=== PATIENT | male | born 1960 | race Caucasian/White ===

== ENCOUNTER 2018-05-25 10:09 | Emergency (ER) | payer BC, MEDICARE ==
[2018-05-25 10:41] VITALS: TEMP 97.6
[2018-05-25] MEDS ORDERED: SODIUM CHLORIDE 0.9% 500 ML 500 ML IV STA (11:10)
--- NOTE | 2018-05-25 11:18 | ED ---
SOB HPI - General Chief Complaint: Shortness of Breath Stated Complaint: SOB Time Seen by Provider: 05/25/18 10:45 Source: patient, family, RN notes reviewed Mode of arrival: ambulatory Limitations: no limitations - History of Present Illness Initial Comments: 58-year-old male presents emergency Department chief complaint cough and cold like symptoms. Patient states he has been sick last few days progressively worsening. Patient states he feels short of breath. He does have underlying COPD and which she did this morning which has helped. Patient reports subjective fever and body aches. Patient denies any chest pain or chest pressure. Denies any nausea vomiting diarrhea constipation. No sick contacts he has been taking [id number] Mucinex. - Related Data Home Medications Medication Instructions Recorded Confirmed ALPRAZolam [Xanax] 0.25 mg PO TID PRN 05/25/18 05/25/18 Albuterol Nebulized [Ventolin 2.5 mg INHALATION RT-Q4H PRN 05/25/18 05/25/18 Nebulized] Albuterol Sulfate [Proair Hfa] 1 - 2 puff INHALATION RT-Q6H PRN 05/25/18 Ascorbic Acid [Vitamin C] 1,000 mg PO DAILY PRN 05/25/18 05/25/18 Cyclobenzaprine [Flexeril] 5 mg PO TID PRN 05/25/18 05/25/18 Fluticasone/Vilanterol [Breo 1 puff INHALATION RT-DAILY 05/25/18 05/25/18 Ellipta 100-25 Mcg Inhaler] HYDROcodone/APAP 7.5-325MG [[place] 1 tab PO Q6HR PRN 05/25/18 05/25/18 7.5-325] Ibuprofen [Motrin] 800 mg PO Q6H PRN 05/25/18 05/25/18 Mometasone Furoate [Asmanex] 1 puff INHALATION RT-DAILY 05/25/18 05/25/18 guaiFENesin [Mucinex] 600 mg PO Q12H PRN 05/25/18 05/25/18 Previous Rx's Medication Instructions Recorded Azithromycin [Zithromax Z-pack] 0 mg PO DIRECTED #1 pack 05/25/18 predniSONE 50 mg PO DAILY #5 tab 05/25/18 Allergies Allergy/AdvReac Type Severity Reaction Status Date / Time meperidine HCl [From Demerol] Allergy Severe Unknown Verified 05/25/18 11:29 Review of Systems ROS Statement: Those systems with pertinent positive or pertinent negative responses have been documented in the HPI. ROS Other: All systems not noted in ROS Statement are negative. Past Medical History Past Medical History: COPD, Pneumonia Additional Past Medical History / Comment(s): Hx emphysema, pneumonia with last episode being 2013, back pain and shingells 2013. Pt states last 4 days he has had productive cough with white/[place] expectorant/fever/chills/sweats /SOB. Was seen on Tuesday12/07/[address] Rasmussen[employer]. Placed on amoxicillin and medrol dose godwin. Was also given cough syrup but his pharmacy did not have that. 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 States he had this surgery here at [facility] but does not remember surgeons name. Past Anesthesia/Blood Transfusion Reactions: No Reported Reaction Past Psychological History: No Psychological Hx Reported Smoking Status: Current every day smoker Past Alcohol Use History: None Reported Past Drug Use History: None Reported - Past Family History Father Family Medical History: Cancer Additional Family Medical History / Comment(s): Father at age 54 from cancer. Had lung CA, liver CA and brain CA. Mother Family Medical History: COPD, Pneumonia Additional Family Medical History / Comment(s): Mother at age 70 of copd complicated by pneumonia. General Exam Limitations: no limitations General appearance: alert, in no apparent distress Head exam: Present: atraumatic, normocephalic, normal inspection Eye exam: Present: normal appearance, PERRL, EOMI. Absent: scleral icterus, conjunctival injection, periorbital swelling ENT exam: Present: normal exam, normal oropharynx, mucous membranes moist Neck exam: Present: normal inspection, full ROM. Absent: tenderness, meningismus, lymphadenopathy Respiratory exam: Present: normal lung sounds bilaterally. Absent: respiratory distress, wheezes, rales, rhonchi, stridor Cardiovascular Exam: Present: regular rate, normal rhythm, normal heart sounds. Absent: systolic murmur, diastolic murmur, rubs, gallop, clicks GI/Abdominal exam: Present: soft, normal bowel sounds. Absent: distended, tenderness, guarding, rebound, rigid Course Vital Signs 05/25/18 05/25/18 10:40 12:30 Temperature 97.6 F Pulse Rate 99 74 Respiratory 24 16 Rate Blood Pressure 131/45 124/89 O2 Sat by Pulse 95 100 Oximetry Medical Decision Making - Medical Decision Making 58-year-old male presents emergency department for cough congestion shortness breath. Patient had complete workup including lab CT and x-ray. Patient has mild COPD exacerbation with upper respiratory infection will be treated with antibiotics and steroids patient will follow for neurologist return for any worsening symptoms. - Lab Data Result diagrams: 05/25/18 11:22 05/25/18 11:22 Lab Results 05/25/18 05/25/18 05/25/18 Range/Units 11:22 11:22 11:22 WBC 5.8 (3.8-10.6) k/uL RBC 4.27 L (4.30-5.90) m/uL Hgb 13.0 (13.0-17.5) gm/dL Hct 38.5 L (39.0-53.0) % MCV 90.2 (80.0-100.0) fL MCH 30.5 (25.0-35.0) pg MCHC 33.9 (31.0-37.0) g/dL RDW 13.5 (11.5-15.5) % Plt Count 200 (150-450) k/uL Neutrophils % 71 % Lymphocytes % 16 % Monocytes % 8 % Eosinophils % 4 % Basophils % 1 % Neutrophils # 4.1 (1.3-7.7) k/uL Lymphocytes # 0.9 L (1.0-4.8) k/uL Monocytes # 0.5 (0-1.0) k/uL Eosinophils # 0.2 (0-0.7) k/uL Basophils # 0.0 (0-0.2) k/uL PT 10.3 (9.0-12.0) sec INR 1.0 (<1.2) APTT 23.7 (22.0-30.0) sec Sodium 141 (137-145) mmol/L Potassium 3.3 L (3.5-5.1) mmol/L Chloride 109 H (98-107) mmol/L Carbon Dioxide 22 (22-30) mmol/L Anion Gap 10 mmol/L BUN 13 (9-20) mg/dL Creatinine 0.66 (0.66-1.25) mg/dL Est GFR (CKD-EPI)AfAm >90 (>60 ml/min/1.73 sqM) Est GFR (CKD-EPI)NonAf >90 (>60 ml/min/1.73 sqM) Glucose 92 (74-99) mg/dL Calcium 8.9 (8.4-10.2) mg/dL Magnesium 1.5 L (1.6-2.3) mg/dL Total Bilirubin 0.7 (0.2-1.3) mg/dL AST 22 (17-59) U/L ALT 34 (21-72) U/L Alkaline Phosphatase 56 (38-126) U/L Troponin I (0.000-0.034) ng/mL Total Protein 6.6 (6.3-8.2) g/dL Albumin 4.0 (3.5-5.0) g/dL Influenza Type A RNA (Not Detectd) Influenza Type B (PCR) (Not Detectd) 05/25/18 05/25/18 Range/Units 11:22 11:22 WBC (3.8-10.6) k/uL RBC (4.30-5.90) m/uL Hgb (13.0-17.5) gm/dL Hct (39.0-53.0) % MCV (80.0-100.0) fL MCH (25.0-35.0) pg MCHC (31.0-37.0) g/dL RDW (11.5-15.5) % Plt Count (150-450) k/uL Neutrophils % % Lymphocytes % % Monocytes % % Eosinophils % % Basophils % % Neutrophils # (1.3-7.7) k/uL Lymphocytes # (1.0-4.8) k/uL Monocytes # (0-1.0) k/uL Eosinophils # (0-0.7) k/uL Basophils # (0-0.2) k/uL PT (9.0-12.0) sec INR (<1.2) APTT (22.0-30.0) sec Sodium (137-145) mmol/L Potassium (3.5-5.1) mmol/L Chloride (98-107) mmol/L Carbon Dioxide (22-30) mmol/L Anion Gap mmol/L BUN (9-20) mg/dL Creatinine (0.66-1.25) mg/dL Est GFR (CKD-EPI)AfAm (>60 ml/min/1.73 sqM) Est GFR (CKD-EPI)NonAf (>60 ml/min/1.73 sqM) Glucose (74-99) mg/dL Calcium (8.4-10.2) mg/dL Magnesium (1.6-2.3) mg/dL Total Bilirubin (0.2-1.3) mg/dL AST (17-59) U/L ALT (21-72) U/L Alkaline Phosphatase (38-126) U/L Troponin I <0.012 (0.000-0.034) ng/mL Total Protein (6.3-8.2) g/dL Albumin (3.5-5.0) g/dL Influenza Type A RNA Not Detected (Not Detectd) Influenza Type B (PCR) Not Detected (Not Detectd) - EKG Data EKG Comments: EKG performed at 11:42 normal sinus rhythm with a rate of 66 WA 140 QRS 80 QT/ QTC 400/419 Disposition Clinical Impression: COPD exacerbation, URI (upper respiratory infection) Disposition: HOME SELF-CARE Condition: Stable Instructions (If sedation given, give patient instructions): Acute Bronchitis ( ED) Additional Instructions: Please return to the Emergency Department if symptoms worsen or any other concerns. Prescriptions: Azithromycin [Zithromax Z-pack] 0 mg PO DIRECTED #1 pack predniSONE 50 mg PO DAILY #5 tab Is patient prescribed a controlled substance at d/c from ED?: No Referrals: Vijay Lowry Jr, [Primary Care Provider] - 1-2 days Time of Disposition: 13:19
--- NOTE | 2018-05-25 11:53 | XR ---
EXAMINATION TYPE: XR chest 2V DATE OF EXAM: 05/25/2018 COMPARISON: 12/10/2013 TECHNIQUE: PA and lateral views submitted. HISTORY: Shortness of breath FINDINGS: Extensive emphysematous changes are seen with no acute infiltrate or pleural effusion. No pneumothora x. Left upper lobe nodular appears stable relative to 2014. There is a right upper lobe pleural-based nodule appears increased in size from the prior exam. No overt failure. No pneumothorax. Arthropathy of the shoulders. Degenerative change of the spine. IMPRESSION: 1. Diffuse COPD. Right apical pleural-based nodule appears increased from the exam of 2013. Recommend CT scan of the chest. 2. Stable left upper lobe nodule.
[2018-05-25 11:59] LABS: ALT 34 U/L (21-72); AST 22 U/L (17-59); Alkaline Phosphatase 56 U/L (38-126); Anion Gap 10 mmol/L; Blood Urea Nitrogen 13 mg/dL (9-20); Calcium 8.9 mg/dL (8.4-10.2); Carbon Dioxide 22 mmol/L (22-30); Chloride 109 mmol/L (98-107); Glucose 92 mg/dL (74-99); Magnesium 1.5 mg/dL (1.6-2.3); Potassium 3.3 mmol/L (3.5-5.1); Sodium 141 mmol/L (137-145); Total Bilirubin 0.7 mg/dL (0.2-1.3); Total Protein 6.6 g/dL (6.3-8.2)
[2018-05-25 12:07] LABS: Basophils % (A) 1 %; Eosinophils # (A) 0.2 k/uL (0-0.7); Eosinophils % (A) 4 %; HCT 38.5 % (39.0-53.0); Lymphocytes # (A) 0.9 k/uL (1.0-4.8); Lymphocytes % (A) 16 %; MCH 30.5 pg (25.0-35.0); MCHC 33.9 g/dL (31.0-37.0); MCV 90.2 fL (80.0-100.0); Mean Platelet Volume 7.5; Monocytes # (A) 0.5 k/uL (0-1.0); Monocytes % (A) 8 %; Neutrophils # (A) 4.1 k/uL (1.3-7.7); Neutrophils % (A) 71 %; Platelet Count 200 k/uL (150-450); RBC 4.27 m/uL (4.30-5.90); RDW 13.5 % (11.5-15.5); WBC 5.8 k/uL (3.8-10.6)
[2018-05-25 12:11] LABS: Partial Thromboplastin Time 23.7 sec (22.0-30.0); Prothrombin Time 10.3 sec (9.0-12.0)
--- NOTE | 2018-05-25 12:48 | CT ---
EXAMINATION TYPE: CT chest angio for PE DATE OF EXAM: 05/25/2018 COMPARISON: Chest x-ray same date HISTORY: SOB CT DLP: 292.3 mGycm Automated exposure control for dose reduction was used. CONTRAST: CT Chest for pulmonary embolism performed with without and with IV Contrast, patient injected with 10 0 ml mL of Isovue 300. FINDINGS: LUNGS: The lungs are stable, there is no concerning parenchymal mass or nodule identified. Extensive emphysematous changes are present in the upper lobes There is no pleural effusion or pneumothorax se en. The tracheobronchial tree is patent. MEDIASTINUM: There is satisfactory enhancement of the pulmonary artery and its branches, there is no CT evidence for pulmonary embolism. There are no greater than 1 cm hilar or mediastinal lymph nodes. No pericardial effusion is seen. AORTA: No additional significant abnormality is seen. OTHER: No additional significant abnormality is seen. Old healed rib fracture at the third rib anter iorly on the left accounts for the chest x-ray abnormality. There are apical calcifications in the ri ght compatible with old granulomatous disease or scarring. IMPRESSION: Emphysema. No acute abnormality. No evident pulmonary embolism.
[2018-05-25 12:51] VITALS: RESP 16
[2018-05-25 13:32] VITALS: BP 104/72; PULSE 73
== END 2018-05-25 13:31 | disposition home or self-care (01) ==
LOC: EC 10:09
DX: J44.1 Chronic obstructive pulmonary disease with (acute) exacerbation (principal); J06.9 Acute upper respiratory infection, unspecified; F17.200 Nicotine dependence, unspecified, uncomplicated; Z79.899 Other long term (current) drug therapy; Z79.51 Long term (current) use of inhaled steroids; Z88.5 Allergy status to narcotic agent
CPT/HCPCS: 36415; 71046; 71275; 80053; 83735; 84484; 85025; 85610; 85730; 87040; 87502; 93005; 96360; 96361; 99285

== ENCOUNTER 2018-06-13 07:38 | Day surgery (SDC) | payer MEDICARE ==
[2018-06-08 15:03] VITALS: BMI 22.4
[~2018-06-13 07:38] MED LIST: LACTATED RINGERS 1,000 ML IV SCH
[2018-06-13 08:00] VITALS: TEMP 97.6
[2018-06-13] MEDS ORDERED: LIDOCAINE 1% 20 ML VIAL (10MG/ML) FOR IV START INTRADERMA ONE (08:07)
[2018-06-13] MEDS ORDERED: PROPOFOL 10 MG/ML 20 ML VIAL IV ONE (08:25)
[2018-06-13] MEDS ORDERED: LIDOCAINE 1% INJ 10MG/ML (20 ML MDV) ONE (08:25)
[2018-06-13] MEDS ORDERED: MIDAZOLAM 2 MG/2 ML VIAL ONE (08:25)
[2018-06-13] MEDS ORDERED: GLYCOPYRROLATE 0.2 MG/ML 2 ML VIAL ONE (08:25)
[2018-06-13 08:50] VITALS: RESP 18
--- NOTE | 2018-06-13 08:51 | P.PCN ---
Date of Procedure: 06/13/18 Procedure(s) Performed: Procedure: Esophagogastroduodenoscopy and biopsy. Preoperative diagnosis: Gastroesophageal reflux symptoms and atypical chest pain. Postoperative diagnosis: 1. Small sliding hiatal hernia with no obvious esophagitis or complicated reflux disease. 2. Mild antral gastritis. 3. Mu ltiple biopsies obtained from the duodenum, antrum and esophagus. Preparation sedation: Was provided by anesthesia. Brief clinical history: The patient is a 58-year-old male who is scheduled for this evaluation because of reflux symptoms and atypical chest pains. Apparently, the patient had similar complaints back in 2017 and he was found to have H. pylori infection which was treated. He did well on no medications until the recent onset of his symptoms. No bleeding, weight loss or other alarm symptoms. This evaluation is to assess for esophagitis, complicated reflux disease or other pathology. Procedure: With the patient on his left lateral decubitus position and after informed consent and adequate sedation, I passed the Olympus-GIF date were 90 video upper endoscope through the cricopharyngeus down the esophagus. GE junction was around 42-43 cm from the incisors and there was a small sliding hiatal hernia but no obvious esophagitis or obvious complicated reflux disease such as strictures. The endoscope was then passed into the stomach which was insufflated with air and inspected in detail including the retroflex view in the cardia. There was mottling, erythema and some friability in the antrum and prepyloric area with no ulcers or obvious erosions or bleeding. Pyloric channel, duodenal bulb, post bulbar area and descending duodenum appeared within normal limits. I obtained biopsies from the duodenum, antrum and esophagus then the endoscope was withdrawn. The patient tolerated the procedure well. Plan: The patient was reassured. Will await biopsy results. Further plans will be made based on his course and biopsy results. I will keep you updated on his progress.
[2018-06-13 09:05] VITALS: BP 108/72; PULSE 74
== END 2018-06-13 09:23 | disposition home or self-care (01) ==
LOC: ORWHC2ENDO 07:38
DX: K29.50 Unspecified chronic gastritis without bleeding (principal); K44.9 Diaphragmatic hernia without obstruction or gangrene; K21.9 Gastro-esophageal reflux disease without esophagitis; J44.9 Chronic obstructive pulmonary disease, unspecified; F17.200 Nicotine dependence, unspecified, uncomplicated; Z79.891 Long term (current) use of opiate analgesic; Z79.51 Long term (current) use of inhaled steroids; Z79.52 Long term (current) use of systemic steroids; Z79.899 Other long term (current) drug therapy; Z88.5 Allergy status to narcotic agent
CPT/HCPCS: 88305; 43239; J2250; J2001; J2704

== ENCOUNTER 2018-10-01 21:47 | Emergency (ER) | payer MEDICARE ==
--- NOTE | 2018-10-01 21:55 | ED ---
Chest Pain HPI - General Chief Complaint: Chest Pain Stated Complaint: Chest pain Time Seen by Provider: 10/01/18 21:54 Source: patient, RN notes reviewed, old records reviewed Mode of arrival: ambulatory Limitations: no limitations - History of Present Illness Initial Comments: This is a 50-year-old male the ER for evaluation chest pain. Patient is pr esenting for evaluation of chest pain. Substernal chest pain burning feels like it's reflux-like in nature, pain lasted throughout the day became concerned the patient complained ER. Patient's here in the ER with similar complaints denying shortness of breath or diaphoresis. Patient has no history of high blood pressure no history of high cholesterol for measures smoking. No history of diabetes and no family history MD Complaint: chest pain, other (Substernal, indigestion) -: hour(s) Onset: during rest Pain Location: substernal Severity: mild Severity scale (1-10): 2 Consistency: intermittent Treatments Prior to Arrival: none - Related Data Home Medications Medication Instructions Recorded Confirmed Albuterol Nebulized [Ventolin 2.5 mg INHALATION RT-Q4H PRN 05/25/18 10/01/18 Nebulized] Albuterol Sulfate [Proair Hfa] 1 - 2 puff INHALATION RT-Q6H PRN 05/25/18 10/01/18 Fluticasone/Vilanterol [Breo 1 puff INHALATION RT-DAILY 05/25/18 10/01/18 Ellipta 100-25 Mcg Inhaler] Mometasone Furoate [Asmanex] 1 puff INHALATION RT-DAILY 05/25/18 10/01/18 Allergies Allergy/AdvReac Type Severity Reaction Status Date / Time meperidine HCl [From Demerol] Allergy Severe Nausea & Verified 10/01/18 22:05 Vomiting Review of Systems ROS Statement: Those systems with pertinent positive or pertinent negative responses have been documented in the HPI. ROS Other: All systems not noted in ROS Statement are negative. EKG Findings - EKG Comments: EKG Findings:: EKG shows sinus rhythm rate of 60, SC 136, QRS 70, QTc 389 Past Medical History Past Medical History: COPD Additional Past Medical History / Comment(s): EMPHYSEMA. 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 States he had this surgery here at [facility] but does not remember surgeons name. HEMORRHOID SX. COLONOSCOPY, EGD Past Anesthesia/Blood Transfusion Reactions: No Reported Reaction Past Psychological History: No Psychological Hx Reported Smoking Status: Former smoker Past Alcohol Use History: None Reported Past Drug Use History: None Reported - Past Family History Father Family Medical History: Cancer Additional Family Medical History / Comment(s): Father at age 54 from cancer. Had lung CA, liver CA and brain CA. Mother Family Medical History: COPD, Pneumonia Additional Family Medical History / Comment(s): Mother at age 70 of copd complicated by pneumonia. General Exam Limitations: no limitations General appearance: alert, in no apparent distress Head exam: Present: atraumatic, normocephalic, normal inspection Eye exam: Present: normal appearance, PERRL, EOMI. Absent: scleral icterus, conjunctival injection, periorbital swelling ENT exam: Present: normal exam, mucous membranes moist Neck exam: Present: normal inspection. Absent: tenderness, meningismus, lymphadenopathy Respiratory exam: Present: normal lung sounds bilaterally. Absent: respiratory distress, wheezes, rales, rhonchi, stridor Cardiovascular Exam: Present: regular rate, normal rhythm, normal heart sounds. Absent: systolic murmur, diastolic murmur, rubs, gallop, clicks GI/Abdominal exam: Present: soft, normal bowel sounds. Absent: distended, tenderness, guarding, rebound, rigid Extremities exam: Present: normal inspection, full ROM, normal capillary refill. Absent: tenderness, pedal edema, joint swelling, calf tenderness Back exam: Present: normal inspection Neurological exam: Present: alert, oriented X3, CN II-XII intact Psychiatric exam: Present: normal affect, normal mood Skin exam: Present: warm, dry, intact, normal color. Absent: rash Course Vital Signs 10/01/18 10/01/18 10/01/18 21:51 22:22 23:39 Temperature 97.8 F Pulse Rate 87 67 Pulse Rate [ 68 Ocean Fishing Guide ] Respiratory 18 18 Rate Blood Pressure 130/89 132/86 O2 Sat by Pulse 98 100 Oximetry - Reevaluation(s) Reevaluation #1: 10/02/18 00:14 Medical records reviewed Reevaluation #2: 10/02/18 00:14 Significant acute disease found Reevaluation #3: 10/02/18 00:14 Condition denies any significant chest pain heaviness no shortness of breath or sweating Chest Pain MDM - MDM 58 male the ER with nonspecific chest pain reflux-like chest pain anterior chest substernal chest place to his abdomen and states burning. Patient did have extensive cardiac workup including CTA troponin and EKG all negative. Patient does not want to stay in hospital for cardiac testing currently. Will follow-up with primary care Disposition Clinical Impression: Chest pain Disposition: HOME SELF-CARE Condition: Good Instructions (If sedation given, give patient instructions): Chest Pain (ED) Is patient prescribed a controlled substance at d/c from ED?: No Referrals: Vijay Lowry Jr, DO [Primary Care Provider] - 1-2 days
[2018-10-01 22:31] LABS: Basophils # (A) 0.1 k/uL (0-0.2); Basophils % (A) 1 %; Eosinophils # (A) 0.4 k/uL (0-0.7); Eosinophils % (A) 5 %; HCT 38.1 % (39.0-53.0); HGB 12.8 gm/dL (13.0-17.5); Lymphocytes # (A) 2.3 k/uL (1.0-4.8); Lymphocytes % (A) 29 %; MCH 29.9 pg (25.0-35.0); MCHC 33.7 g/dL (31.0-37.0); MCV 88.8 fL (80.0-100.0); Mean Platelet Volume 7.6; Monocytes # (A) 0.5 k/uL (0-1.0); Monocytes % (A) 7 %; Neutrophils # (A) 4.3 k/uL (1.3-7.7); Neutrophils % (A) 56 %; Platelet Count 312 k/uL (150-450); RBC 4.29 m/uL (4.30-5.90); RDW 14.3 % (11.5-15.5); WBC 7.8 k/uL (3.8-10.6)
[2018-10-01 22:38] LABS: ALT 34 U/L (21-72); AST 30 U/L (17-59); African American GFR (CKD) >90 (>60 ml/min/1.73 sqM); Albumin 4.2 g/dL (3.5-5.0); Alkaline Phosphatase 68 U/L (38-126); Anion Gap 10 mmol/L; Blood Urea Nitrogen 14 mg/dL (9-20); Calcium 9.2 mg/dL (8.4-10.2); Carbon Dioxide 26 mmol/L (22-30); Chloride 105 mmol/L (98-107); Glucose 96 mg/dL (74-99); Lipase 165 U/L (23-300); Magnesium 1.9 mg/dL (1.6-2.3); Potassium 4.3 mmol/L (3.5-5.1); Sodium 141 mmol/L (137-145); Total Bilirubin 0.3 mg/dL (0.2-1.3); Total Protein 6.8 g/dL (6.3-8.2)
[2018-10-01 22:47] LABS: INR 0.9 (<1.2); Partial Thromboplastin Time 23.7 sec (22.0-30.0); Prothrombin Time 9.9 sec (9.0-12.0)
--- NOTE | 2018-10-01 22:49 | XR ---
CHEST RADIOGRAPHY EXAM: XR Chest, 2 Views CLINICAL HISTORY: ITS.REASON XR Reason: Chest Pain TECHNIQUE: Frontal and lateral views of the chest. COMPARISON: No relevant prior studies available. FINDINGS: Lungs: Large bulla or air containing cavity suspected at the right apex. Adjacent pleural parenchymal scarring. Scarring also seen at the left apex. Diffuse emphysema which is worse at the upper lobes. Question ill-defined dense mass or nodule measuring 3 cm at the left upper lobe. Question small nodular density at the periphery of the left lung base. Consider calcified granuloma. Pleural space: Unremarkable. No pneumothorax. Heart: No cardiomegaly. Pulmonary arterial enlargement bilaterally suggests portal hypertension. Mediastinum: Unremarkable. Bones/joints: Unremarkable. Other findings: 0 IMPRESSION: Possible mass at the left upper lobe (less likely left second anterior rib lesion). Suggest chest CT for further evaluation. No pneumonia. <MYCVCSECTION> Critical Value Communications 10/01/18 22:53 Verify Receipt Verified receipt with Dr. Cerda on 10/01 22:53 (-04:00)
--- NOTE | 2018-10-02 00:07 | CT ---
EXAM: CT Angiography Chest With Intravenous Contrast CLINICAL HISTORY: ITS.REASON CT Reason: Pain TECHNIQUE: Axial computed tomographic angiography images of the chest with intravenous contrast using pulmonary embolism protocol. CTDI is 8.9 mGy and DLP is year 2.80 mGy-cm. This CT exam was performed using one or more of the following dose reduction techniques: automated exposure control, adjustment of the mA and/or kV according to patient size, and/or use of iterative reconstruction technique. MIP reconstructed images were created and reviewed. COMPARISON: Chest radiography 10/01/18. FINDINGS: Pulmonary arteries: No PE. No aortic aneurysm or dissection. Aorta: No acute findings. No thoracic aortic aneurysm. Lungs: Emphysema, worse at the upper lungs with large bulla at the right apex. No mass. Pleural space: No consolidation, pleural effusion or pneumothorax. Heart: No cardiomegaly or pericardial effusion. No evidence of RV dysfunction. Bones/joints: No suspicious lytic or sclerotic lesions of bone. No acute fracture. No dislocation. Soft tissues: Unremarkable. Lymph nodes: Unremarkable. No enlarged lymph nodes. IMPRESSION: No PE or other acute disease. Left anterior third rib deformity may be posttraumatic in nature. No suspicious pulmonary nodule.
[2018-10-02 01:29] VITALS: BP 134/84; PULSE 64; RESP 17; TEMP 98.3
== END 2018-10-02 01:22 | disposition home or self-care (01) ==
LOC: EC 21:47
DX: R07.2 Precordial pain (principal); J44.9 Chronic obstructive pulmonary disease, unspecified; Z87.891 Personal history of nicotine dependence; Z79.51 Long term (current) use of inhaled steroids; Z88.5 Allergy status to narcotic agent
CPT/HCPCS: 36415; 93005; 83880; 80053; 83690; 83735; 84484; 85025; 85610; 85730; 71046; 71275; 99285; Q9967

== ENCOUNTER 2018-10-03 17:02 | Emergency (ER) | payer MEDICARE ==
[2018-10-03 17:14] VITALS: BP 104/67; PULSE 96; RESP 17; TEMP 97.9
[2018-10-03] MEDS ORDERED: DIPH,PERTUS(ACELL)TETVAC-LF 0.5 ML VIAL IM ONE (17:14)
--- NOTE | 2018-10-03 17:46 | XR ---
PROCEDURE: XR tibia fibula LT - 3V DATE AND TIME: 10/03/2018 5:33 PM CLINICAL INDICATION: PHH; Pain TECHNIQUE: Department protocol COMPARISON: None FINDINGS: There is no fracture or malalignment. No radiopaque foreign bodies. The soft tissues are unremarkable, though bandaging noted anteriorly over the mid tibia. IMPRESSION: NO ACUTE PROCESS.
[2018-10-03] MEDS: LIDOCAINE 1% INJ 10MG/ML (20 ML MDV) SQ ONE ×2 (18:14→19:51)
[2018-10-03] MEDS ORDERED: GELATIN SPONGE,ABSORB (LARGE) 1 EACH SPONGE TOPICAL STA (18:29)
--- NOTE | 2018-10-03 18:47 | ED ---
General Adult HPI - General Chief complaint: Extremity Injury, Lower Stated complaint: Laceration on leg Time Seen by Provider: 10/03/18 17:14 Source: patient Mode of arrival: ambulatory Limitations: no limitations - History of Present Illness Initial comments: Patient is a 58-year-old male presenting to emergency Department with an abrasion. Patient reports using a chainsaw when he created a small abrasion on the anterior aspect of the left lower leg. Patient reports difficult time attempted to stop the bleeding. Patient is not on blood thinners. Patient is unaware of his tetanus status. Patient has full range of motion and his foot and denies any numbness or tingling. The abrasion is approximately 1 cm in size. Patient denies taking any medication to alleviate the symptoms. Patient reports minimal pain. - Related Data Home Medications Medication Instructions Recorded Confirmed Albuterol Nebulized [Ventolin 2.5 mg INHALATION RT-Q4H PRN 05/25/18 10/01/18 Nebulized] Albuterol Sulfate [Proair Hfa] 1 - 2 puff INHALATION RT-Q6H PRN 05/25/18 10/01/18 Fluticasone/Vilanterol [Breo 1 puff INHALATION RT-DAILY 05/25/18 10/01/18 Ellipta 100-25 Mcg Inhaler] Mometasone Furoate [Asmanex] 1 puff INHALATION RT-DAILY 05/25/18 10/01/18 Allergies Allergy/AdvReac Type Severity Reaction Status Date / Time meperidine HCl [From Demerol] Allergy Severe Nausea & Verified 10/01/18 22:05 Vomiting Review of Systems ROS Statement: Those systems with pertinent positive or pertinent negative responses have been documented in the HPI. ROS Other: All systems not noted in ROS Statement are negative. Past Medical History Past Medical History: COPD Additional Past Medical History / Comment(s): EMPHYSEMA. 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 HEMORRHOID SX, COLONOSCOPY, EGD Past Anesthesia/Blood Transfusion Reactions: No Reported Reaction Past Psychological History: No Psychological Hx Reported Smoking Status: Former smoker Past Alcohol Use History: None Reported Past Drug Use History: None Reported - Past Family History Father Family Medical History: Cancer Additional Family Medical History / Comment(s): Father at age 54 from cancer. Had lung CA, liver CA and brain CA. Mother Family Medical History: COPD, Pneumonia Additional Family Medical History / Comment(s): Mother at age 70 of copd complicated by pneumonia. General Exam Limitations: no limitations General appearance: alert, in no apparent distress Head exam: Present: atraumatic, normocephalic, normal inspection Eye exam: Present: normal appearance, PERRL, EOMI Pupils: Present: normal accommodation ENT exam: Present: normal exam, normal oropharynx, mucous membranes moist, normal external ear exam Neck exam: Present: normal inspection, full ROM Respiratory exam: Present: normal lung sounds bilaterally Cardiovascular Exam: Present: regular rate, normal rhythm, normal heart sounds Extremities exam: Present: normal inspection, full ROM, normal capillary refill, other (+2 dorsalis pedis and posterior tibialis, bilaterally. 1 cm linear abrasion on the anterior aspect of the left lower leg. No signs of infection). Absent: calf tenderness Back exam: Present: normal inspection, full ROM Neurological exam: Present: alert, oriented X3 Psychiatric exam: Present: normal affect, normal mood Skin exam: Present: warm, intact, normal color Course Vital Signs 10/03/18 17:12 Temperature 97.9 F Pulse Rate 96 Respiratory 17 Rate Blood Pressure 104/67 O2 Sat by Pulse 97 Oximetry Medical Decision Making - Medical Decision Making Patient is a 50-year-old male presenting to emergency Department abrasion to left leg. There was active bleeding at the site of injury but no laceration noted. No suturing was required. Tetanus prophylaxis was administered. Gelfoam was applied at the site of injury to prevent active bleeding. Patient was not on blood thinners. No signs of infection noted so no antibiotic is required. Proper wound care instructions were discussed with patient. Strict return parameters were thoroughly discussed with patient was understanding and agreeable. Case discussed with physician. Disposition Clinical Impression: Skin avulsion Disposition: HOME SELF-CARE Condition: Stable Instructions (If sedation given, give patient instructions): Skin Avulsion (ED) Additional Instructions: Please follow proper wound care instructions. Please follow-up with primary care. Please return to emergency department if symptoms worsen. Is patient prescribed a controlled substance at d/c from ED?: No Referrals: Vijay Lowry Jr, [Primary Care Provider] - 1-2 days Time of Disposition: 18:45
== END 2018-10-03 18:54 | disposition home or self-care (01) ==
LOC: EC 17:02
DX: S81.802A Unspecified open wound, left lower leg, initial encounter (principal); J44.9 Chronic obstructive pulmonary disease, unspecified; Z79.51 Long term (current) use of inhaled steroids; Z87.891 Personal history of nicotine dependence; Z23 Encounter for immunization; Z88.2 Allergy status to sulfonamides; W29.3XXA Contact with powered garden and outdoor hand tools and machinery, initial encounter
CPT/HCPCS: 90471; 90715; 99283

== ENCOUNTER → 2018-10-05 | Outpatient (CLI) | payer MEDICARE ==
--- NOTE | 2018-10-05 10:19 | US ---
EXAMINATION TYPE: US extremity nonvasc mass LT DATE OF EXAM: 10/05/2018 COMPARISON: NONE CLINICAL HISTORY: R22.32 LOCALIZED SWELLING, MASS AND LUMP. Patient tc/o pain and palpable left later al posterior upper arm after tossing motion was performed. TECHNIQUE/FINDINGS: Targeted ultrasound was performed of the patient's area of palpable abnormality i n the left upper extremity. Upper left arm US: no mass or fluid is seen at patient's area of palpabl e within the left upper extremity and as compared to right arm at same level. IMPRESSION: No sonographic correlate to the patient's palpable abnormality of the left upper extremi ty. If there is further concern enhanced MRI could be performed.
== END | disposition home or self-care (01) ==
LOC: RADUSWWP 09:27
PROVIDERS: ATTEND Family Medicine
DX: R22.32 Localized swelling, mass and lump, left upper limb (principal); Z88.5 Allergy status to narcotic agent

== ENCOUNTER → 2020-10-08 | Outpatient (CLI) | payer MEDICARE ==
--- NOTE | 2020-10-08 08:43 | CTL ---
EXAMINATION TYPE: CT Low Dose Lung DATE OF EXAM ORDERED: 10/08/2020 COMPARISON: CT chest 05/25/2018 and 10/01/2018 HISTORY: . Low Dose CT Lung Screening CT DLP: [address] CTDI: 1.67 mGy IV CONTRAST USED: None. SCREENING VISIT: First visit COMPARISON: None. TECHNIQUE: Low dose computed tomography scan was performed through the chest at 1 millimeter thick se ctions and reconstructed images in the coronal plane at [address] DIAGNOSTIC QUALITY: Satisfactory FINDINGS: LUNG NODULES: New Masslike area of the opacity left apical region may reflect parenchymal scarring or infiltrate. Underlying mass is difficult to exclude although felt to be unlikely. Clinical correlati on and short-term follow-up is advised. Scarring right upper lobe. Scattered areas of pleural thickening left midlung zone. Pulmonary nodule right lower lobe measures 5 mm. No additional nodules identified. LUNGS: COPD: Severity: Moderate to severe Fibrosis: Severity: Mild Lymph nodes: None Other findings: None RIGHT PLEURAL SPACE: Effusion: None Calcification: None Thickening: None Pneumothorax: None LEFT PLEURAL SPACE: Effusion: None Calcification: None Thickening: None Pneumothorax: None HEART: Heart Size: Mildly enlarged Coronary calcification: Mild Pericardial effusion: None OTHER FINDINGS: Upper abdomen: No significant abnormality Bony thorax: Degenerative changes Supraclavicular region: No significant abnormalityOther: No significant abnormalityI IMPRESSION: 1.New Masslike area of the opacity left apical region measuring 4.3 x 3.1 cm may reflect parenchymal scarring or infiltrate. Underlying mass is difficult to exclude although felt to be unlikely. Clinica l correlation and short-term follow-up is advised. FOLLOW UP CT CHEST RECOMMENDATION: 3 month follow-up LT CT advised. PET/CT may be of value if felt to be clinically sangeeta cated. CT LUNG RAD: LUNG RAD CATEGORY 4A
== END | disposition home or self-care (01) ==
LOC: RADCTMAIN 07:05
PROVIDERS: ATTEND Family Medicine
DX: Z12.2 Encounter for screening for malignant neoplasm of respiratory organs (principal); R91.8 Other nonspecific abnormal finding of lung field
CPT/HCPCS: 71271

== ENCOUNTER → 2020-11-18 | Outpatient (CLI) | payer MEDICARE ==
--- NOTE | 2020-11-18 08:26 | CT ---
EXAMINATION TYPE: CT chest wo con DATE OF EXAM: 11/18/2020 COMPARISON: 10/08/2020 HISTORY: Pulmonary Nodule CT DLP: [address] of the chest was performed with lung and mediastinal window settings submitted. The la ck of contrast limits evaluation of the vascular, mediastinal and parenchymal structures including th e upper abdomen. LUNGS: Masslike area left apical region persists although appears to be smaller in size relative to t he prior study. Area measures of 5.9 x 4.0 cm and may reflect an area of active inflammatory/postinfl ammatory change. Continued short-term follow-up versus PET/CT advised. Correlate clinically. Parenchy mal scarring is noted within the biapical regions as well. Moderate to severe underlying emphysematou s change noted. Nodular density right upper lobe 4 mm image 36. MEDIASTINUM/MY: Thoracic aorta is of normal caliber with limited evaluation given lack of contrast . The heart is not enlarged. No evidence for mediastinal mass. No lymph nodes greater than 1cm. UPPER ABDOMEN: No significant abnormality is seen. OTHER: No significant other abnormality. IMPRESSION: 1. Masslike area left apical region persists although appears to be smaller in size relative to the prior study. Area measures of 5.9 x 4.0 cm and may reflect an area of active inflammatory/postinflamm atory change. Continued short-term follow-up versus PET/CT advised. Correlate clinically.
== END | disposition home or self-care (01) ==
LOC: RADCTMAIN 07:55
PROVIDERS: ATTEND Internal Medicine Pulmonary Disease
DX: J98.4 Other disorders of lung (principal)
CPT/HCPCS: 71250

== ENCOUNTER 2022-08-01 08:43 | Inpatient (IN) | payer MEDICARE ==
[2022-08-01] MEDS ORDERED: IPRATROPIUM 0.5 MG/2.5 ML NEBU INHALATION STA (09:07)
[2022-08-01] MEDS ORDERED: LORazepam 2 MG/ML INJ IV STA (09:07)
[2022-08-01] MEDS ORDERED: methylPREDNISolone SOD SUCCI 125 MG/2 ML VIAL IV STA (09:07)
[2022-08-01] MEDS ORDERED: ALBUTEROL NEBULIZED 2.5 MG/3 ML INHALATION STA (09:07)
[2022-08-01] MEDS ORDERED: KETOROLAC 15 MG/ML 1 ML VIAL IVP STA (09:07)
[2022-08-01] MEDS ORDERED: SODIUM CHLORIDE 0.9% 500 ML 500 ML IV STA (09:07)
--- NOTE | 2022-08-01 09:10 | ED ---
General Adult HPI - General Chief complaint: Chest Pain Stated complaint: RUTH chest tightness Time Seen by Provider: 08/01/22 08:50 Source: patient, RN notes reviewed, old records reviewed Mode of arrival: ambulatory Limitations: no limitations - History of Present Illness Initial comments: This is a 62-year-old male who presents emergency Department with a past medical history significant for COPD per patient states he has not smoked for 8 years. Patient comes in today stating his difficulty breathing has been getting progressively worse over the last 4-5 days. Patient states she also has a cough. Patient states normally when he gets his pain needs. Admitted. Patient states he has no chest pain but he has some chest tightness with this typical with his COPD. Patient denies any headache patient denies numbness weakness per patient denies lightheadedness or dizziness. Patient denies any abdominal pain patient denies nausea vomiting diarrhea. Patient denies any swelling to his legs or calf tenderness. - Related Data Home Medications Medication Instructions Recorded Confirmed Albuterol Nebulized [Ventolin 2.5 mg INHALATION RT-Q4H PRN 05/25/18 10/01/18 Nebulized] Albuterol Sulfate [Proair Hfa] 1 - 2 puff INHALATION RT-Q6H PRN 05/25/18 10/01/18 Fluticasone/Vilanterol [Breo 1 puff INHALATION RT-DAILY 05/25/18 10/01/18 Ellipta 100-25 Mcg Inhaler] Mometasone Furoate [Asmanex] 1 puff INHALATION RT-DAILY 05/25/18 10/01/18 Allergies Allergy/AdvReac Type Severity Reaction Status Date / Time meperidine HCl [From Demerol] Allergy Severe Nausea & Verified 08/01/22 08:52 Vomiting Review of Systems ROS Statement: Those systems with pertinent positive or pertinent negative responses have been documented in the HPI. ROS Other: All systems not noted in ROS Statement are negative. Past Medical History Past Medical History: COPD Additional Past Medical History / Comment(s): EMPHYSEMA. SOB History of Any Multi-Drug Resistant Organisms: None Reported Additional Past Surgical History / Comment(s): 1984 L rib removed due to Tumor attached to rib, rib removed and tumor was benign. HEMORRHOID SX, COLONOSCOPY, EGD Past Anesthesia/Blood Transfusion Reactions: No Reported Reaction Past Psychological History: No Psychological Hx Reported Smoking Status: Never smoker Past Alcohol Use History: Occasional Past Drug Use History: None Reported - Past Family History Father Family Medical History: Cancer Additional Family Medical History / Comment(s): Father at age 54 from cancer. Had lung CA, liver CA and brain CA. Mother Family Medical History: COPD, Pneumonia Additional Family Medical History / Comment(s): Mother at age 70 of copd complicated by pneumonia. General Exam - General Exam Comments Initial Comments: GENERAL: Patient is well-developed and well-nourished. Patient is nontoxic and well- hydrated and is in mild distress. ENT: Neck is soft and supple. No significant lymphadenopathy is noted. Oropharynx is clear. Moist mucous membranes. Neck has full range of motion without eliciting any pain. EYES: The sclera were anicteric and conjunctiva were pink and moist. Extraocular movements were intact and pupils were equal round and reactive to light. Eyelids were unremarkable. PULMONARY: Unlabored respirations. Good breath sounds bilaterally. Scattered expiratory wheezing. CARDIOVASCULAR: Patient is a regular rate and rhythm at about 110 beats minute ABDOMEN: Soft and nontender with normal bowel sounds. SKIN: Skin is clear with no lesions or rashes and otherwise unremarkable. NEUROLOGIC: Patient is alert and oriented x3. Cranial nerves II through XII are grossly intact. Motor and sensory are also intact. Normal speech, volume and content. Symmetrical smile. MUSCULOSKELETAL: Normal extremities with adequate strength and full range of motion. Patient has no calf tenderness or pedal edema LYMPHATICS: No significant lymphadenopathy is noted PSYCHIATRIC: Normal psychiatric evaluation. Limitations: no limitations Course Vital Signs 08/01/22 08/01/22 08/01/22 08:48 08:52 09:23 Temperature 98 F Pulse Rate 118 H 102 H Respiratory 18 20 Rate Blood Pressure 140/83 O2 Sat by Pulse 94 L Oximetry 08/01/22 08/01/22 09:45 10:00 Temperature Pulse Rate 112 H 113 H Respiratory 22 Rate Blood Pressure 123/81 O2 Sat by Pulse 98 Oximetry Medical Decision Making - Medical Decision Making EKG shows sinus tachycardia on 3 bpm SC interval 159 QRSs 80 QT interval 336 QTC is 395. Patient's EKG shows no ST segment elevation or depression. Was pt. sent in by a medical professional or institution (, PA, [employer], urgent care, hospital, or residential...) When possible be specific @ -No Did you speak to anyone other than the patient for history (EMS, parent, family, police, friend...)? What history was obtained from this source @ -No Did you review nursing and triage notes (agree or disagree)? Why? @ -I reviewed and agree with nursing and triage notes Were old charts reviewed (outside hosp., previous admission, EMS record, old EKG, old radiological studies, urgent care reports/EKG's, residential records)? Report findings @ -I reviewed prior charts apart lab work on this patient Differential Diagnosis (chest pain, altered mental status, abdominal pain women, abdominal pain men, vaginal bleeding, weakness, fever, dyspnea, syncope, headache, dizziness, GI bleed, back pain, seizure, CVA, palpatations, mental hea lth, musculoskeletal)? @ -Differential Dyspnea: Coronary syndrome, arrhythmia, tamponade, asthma, COPD, pulmonary embolism, pneumonia, pneumothorax, pulmonary effusion, anaphylaxis, diabetic ketoacidosis, flailed chest, pulmonary contusion, diaphragmatic rupture, anemia, neuromu scular, this is not meant to be an all-inclusive list. EKG interpreted by me (3pts min.). @ -As above X-rays interpreted by me (1pt min.). @ -Is interpreted by myself shows COPD CT interpreted by me (1pt min.). @ -None done U/S interpreted by me (1pt. min.). @ -None done What testing was considered but not performed or refused? (CT, X-rays, U/S, labs)? Why? @ -None What meds were considered but not given or refused? Why? @ -None Did you discuss the management of the patient with other professionals (professionals i.e. , PA, [employer], lab, RT, psych nurse, drug abuse social worker, equine manager, teacher, mortgage loan officer, rn case management)? Give summary @ -With Dr. Essence Lowry he agreed to admit the patient I admitted the patient Was smoking cessation discussed for >3mins.? @ -No Was critical care preformed (if so, how long)? @ -No Were there social determinants of health that impacted care today? How? (Homelessness, low income, unemployed, alcoholism, drug addiction, transportation, low edu. Level, literacy, decrease access to med. care, longterm, rehab)? @ -No Was there de-escalation of care discussed even if they declined (Discuss DNR or withdrawal of care, Hospice)? DNR status @ -No What co-morbidities impacted this encounter? (DM, HTN, Smoking, COPD, CAD, Cancer, CVA, ARF, Chemo, Hep., AIDS, mental health diagnosis, sleep apnea, morbid obesity)? @ -None Was patient admitted / discharged? Hospital course, mention meds given and route, prescriptions, significant lab abnormalities, going to OR and other pertinent info. @ -Patient was given multiple breathing treatments in the emergency department as well as Solu-Medrol and patient states it helped a little but he did not feel comfortable going home at this time. Spoke with Dr. Lowry he agreed to admit the patient. Patient also received Toradol for his back discomfort and Ativan for his anxiety. Undiagnosed new problem with uncertain prognosis? @ -No Drug Therapy requiring intensive monitoring for toxicity (Heparin, Nitro, Insulin, Cardizem)? @ -No Were any procedures done? @ -No Diagnosis/symptom? @ -COPD exacerbation Acute, or Chronic, or Acute on Chronic? @ -Acute Uncomplicated (without systemic symptoms) or Complicated (systemic symptoms)? @ -Complicated Side effects of treatment? @ -No Exacerbation, Progression, or Severe Exacerbation? @ -No Poses a threat to life or bodily function? How? (Chest pain, USA, NH, pneumonia, PE, COPD, DKA, ARF, appy, cholecystitis, CVA, Diverticulitis, Homicidal, Suicidal, threat to staff... and all critical care pts) @ -This could be due to hypoxia and end organ dysfunction - Lab Data Result diagrams: 08/01/22 09:19 08/01/22 09:19 Lab Results 08/01/22 08/01/22 08/01/22 Range/Units 09:19 09:19 09:19 WBC 7.4 (3.8-10.6) k/uL RBC 4.84 (4.30-5.90) m/uL Hgb 14.3 (13.0-17.5) gm/dL Hct 44.1 (39.0-53.0) % MCV 91.2 (80.0-100.0) fL MCH 29.6 (25.0-35.0) pg MCHC 32.5 (31.0-37.0) g/dL RDW 13.4 (11.5-15.5) % Plt Count 262 (150-450) k/uL MPV 7.8 Neutrophils % 69 % Lymphocytes % 18 % Monocytes % 8 % Eosinophils % 3 % Basophils % 0 % Neutrophils # 5.1 (1.3-7.7) k/uL Lymphocytes # 1.3 (1.0-4.8) k/uL Monocytes # 0.6 (0-1.0) k/uL Eosinophils # 0.2 (0-0.7) k/uL Basophils # 0.0 (0-0.2) k/uL PT 10.1 (9.0-12.0) sec INR 1.0 (<1.2) APTT 23.0 (22.0-30.0) sec Sodium 141 (137-145) mmol/L Potassium 3.8 (3.5-5.1) mmol/L Chloride 105 (98-107) mmol/L Carbon Dioxide 23 (22-30) mmol/L Anion Gap 13 mmol/L BUN 12 (9-20) mg/dL Creatinine 0.58 L (0.66-1.25) mg/dL Est GFR (CKD-EPI)AfAm >90 (>60 ml/min/1.73 sqM) Est GFR (CKD-EPI)NonAf >90 (>60 ml/min/1.73 sqM) Glucose 92 (74-99) mg/dL Plasma Lactic Acid Kemar (0.7-2.0) mmol/L Calcium 9.0 (8.4-10.2) mg/dL Magnesium 1.8 (1.6-2.3) mg/dL Total Bilirubin 0.7 (0.2-1.3) mg/dL AST 30 (17-59) U/L ALT 26 (4-49) U/L Alkaline Phosphatase 53 (38-126) U/L Troponin I (0.000-0.034) ng/mL Total Protein 7.4 (6.3-8.2) g/dL Albumin 4.5 (3.5-5.0) g/dL 08/01/22 08/01/22 Range/Units 09:19 09:19 WBC (3.8-10.6) k/uL RBC (4.30-5.90) m/uL Hgb (13.0-17.5) gm/dL Hct (39.0-53.0) % MCV (80.0-100.0) fL MCH (25.0-35.0) pg MCHC (31.0-37.0) g/dL RDW (11.5-15.5) % Plt Count (150-450) k/uL MPV Neutrophils % % Lymphocytes % % Monocytes % % Eosinophils % % Basophils % % Neutrophils # (1.3-7.7) k/uL Lymphocytes # (1.0-4.8) k/uL Monocytes # (0-1.0) k/uL Eosinophils # (0-0.7) k/uL Basophils # (0-0.2) k/uL PT (9.0-12.0) sec INR (<1.2) APTT (22.0-30.0) sec Sodium (137-145) mmol/L Potassium (3.5-5.1) mmol/L Chloride (98-107) mmol/L Carbon Dioxide (22-30) mmol/L Anion Gap mmol/L BUN (9-20) mg/dL Creatinine (0.66-1.25) mg/dL Est GFR (CKD-EPI)AfAm (>60 ml/min/1.73 sqM) Est GFR (CKD-EPI)NonAf (>60 ml/min/1.73 sqM) Glucose (74-99) mg/dL Plasma Lactic Acid Kemar 1.4 (0.7-2.0) mmol/L Calcium (8.4-10.2) mg/dL Magnesium (1.6-2.3) mg/dL Total Bilirubin (0.2-1.3) mg/dL AST (17-59) U/L ALT (4-49) U/L Alkaline Phosphatase (38-126) U/L Troponin I <0.012 (0.000-0.034) ng/mL Total Protein (6.3-8.2) g/dL Albumin (3.5-5.0) g/dL Disposition Clinical Impression: COPD exacerbation Disposition: ADMITTED IP TO THIS HOSP Referrals: Vijay Lowry Jr, [Primary Care Provider] - 1-2 days Time of Disposition: 11:06
[2022-08-01 09:36] LABS: Basophils % (A) 0 %; Eosinophils # (A) 0.2 k/uL (0-0.7); Eosinophils % (A) 3 %; HCT 44.1 % (39.0-53.0); HGB 14.3 gm/dL (13.0-17.5); Lymphocytes # (A) 1.3 k/uL (1.0-4.8); Lymphocytes % (A) 18 %; MCH 29.6 pg (25.0-35.0); MCHC 32.5 g/dL (31.0-37.0); MCV 91.2 fL (80.0-100.0); Mean Platelet Volume 7.8; Monocytes # (A) 0.6 k/uL (0-1.0); Monocytes % (A) 8 %; Neutrophils # (A) 5.1 k/uL (1.3-7.7); Neutrophils % (A) 69 %; Platelet Count 262 k/uL (150-450); RBC 4.84 m/uL (4.30-5.90); RDW 13.4 % (11.5-15.5); WBC 7.4 k/uL (3.8-10.6)
[2022-08-01 09:49] LABS: Prothrombin Time 10.1 sec (9.0-12.0)
[2022-08-01 09:54] LABS: ALT 26 U/L (4-49); African American GFR (CKD) >90 (>60 ml/min/1.73 sqM); Albumin 4.5 g/dL (3.5-5.0); Anion Gap 13 mmol/L; Blood Urea Nitrogen 12 mg/dL (9-20); Carbon Dioxide 23 mmol/L (22-30); Chloride 105 mmol/L (98-107); Glucose 92 mg/dL (74-99); Non-African American GFR(CKD) >90 (>60 ml/min/1.73 sqM); Sodium 141 mmol/L (137-145); Total Bilirubin 0.7 mg/dL (0.2-1.3); Total Protein 7.4 g/dL (6.3-8.2)
--- NOTE | 2022-08-01 10:13 | XR ---
EXAMINATION TYPE: XR chest 2V DATE OF EXAM: 08/01/2022 9:54 AM COMPARISON: Chest radiographs from 10/01/2018 TECHNIQUE: XR chest 2V Frontal and lateral views of the chest. CLINICAL INDICATION:Male, 62 years old with history of difficulty breathing; FINDINGS: Lungs/Pleura: There is flattening of the diaphragm with increased lucency of the lungs. No evidence o f pneumothorax, pleural effusion or focal consolidation. Pulmonary vascularity: Unremarkable. Heart/mediastinum: Cardiomediastinal silhouette is unremarkable. Musculoskeletal: No acute osseous pathology. IMPRESSION: 1. No acute cardiopulmonary disease process. 2. Moderate to severe COPD changes.
[2022-08-01 10:15] LABS: Magnesium 1.8 mg/dL (1.6-2.3); Potassium 3.8 mmol/L (3.5-5.1)
[2022-08-01 10:16] LABS: AST 30 U/L (17-59); Alkaline Phosphatase 53 U/L (38-126)
[2022-08-01] MEDS ORDERED: NALOXONE 0.4 MG/ML 1 ML VIAL IVP PRN (11:06)
[2022-08-01] MEDS ORDERED: IPRATROPIUM-ALBUTEROL 3 ML NEB INHALATION PRN (11:06)
[2022-08-01] MEDS: IPRATROPIUM-ALBUTEROL 3 ML NEB INHALATION SCH ×3 (12:07→20:48)
[2022-08-01] MEDS ORDERED: HYDROmorphone 0.5 MG/0.5 ML SYRINGE IVP STA (12:08)
[2022-08-01] MEDS: methylPREDNISolone SOD SUCCI 125 MG/2 ML VIAL IV SCH ×2 (12:14→17:37)
[2022-08-01] MEDS ORDERED: TOPIRAMATE 25 MG TAB PO STA (16:10)
[2022-08-01] MEDS ORDERED: CYCLOBENZAPRINE 5 MG TAB PO PRN (16:11)
[2022-08-01] MEDS: ALPRAZolam 0.25 MG TAB PO PRN (16:45)
[2022-08-01] MEDS: BUDESONIDE 0.5 MG/2 ML NEBU INHALATION SCH (20:48)
[2022-08-02] MEDS: methylPREDNISolone SOD SUCCI 125 MG/2 ML VIAL IV SCH ×5 (00:23→22:14)
[2022-08-02] MEDS: ALPRAZolam 0.25 MG TAB PO PRN ×3 (01:58→22:14)
[2022-08-02] MEDS: HYDROcodone/APAP 10-325MG 1 EACH TAB PO PRN (01:58)
[2022-08-02] MEDS: IPRATROPIUM-ALBUTEROL 3 ML NEB INHALATION SCH ×4 (07:48→21:50)
[2022-08-02] MEDS: BUDESONIDE 0.5 MG/2 ML NEBU INHALATION SCH ×2 (07:48→21:50)
--- NOTE | 2022-08-02 11:36 | P.CNPUL ---
History of Present Illness Consult date: 08/02/22 Reason for consult: dyspnea, cough, COPD, hypoxemia Chief complaint: Progressive cough shortness of breath History of present illness: 62-year-old male with prior medical history of extensive smoking and nicotine use quit 15 years ago but used to smoke heavily up to 2 packs per day for 35 years presented into the hospital with increasing shortness of breath than baseline along with cough congestion and wheezing symptoms started about a week ago has been progressive cough is mainly nonproductive along with having chest I as patient does have a long-standing history of COPD sees Dr. MARVIN bains for lung issues, he takes the breathing treatments on a regular basis along with MDIs on specific questioning denies any loss of conscious), denies any purulent sputum production or hemoptysis denies any weight denies any nausea vomiting diarrhea, her chest x-ray consistent with COPD-like changes but does active proc ess identified Review of Systems All systems: negative Past Medical History Past Medical History: COPD Additional Past Medical History / Comment(s): EMPHYSEMA, SOB, migraines, psoriasis, arthritis, pt had an arrhythmia in the past/in his 20's had cardioversion/no issues since, chronic neck and back pain. 30% of lung function. 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 HEMORRHOID SX, COLONOSCOPY, EGD. Biopsy of lungs/no cancer. Past Anesthesia/Blood Transfusion Reactions: No Reported Reaction Past Psychological History: No Psychological Hx Reported Smoking Status: Former smoker Past Alcohol Use History: Occasional Additional Past Alcohol Use History / Comment(s): QUIT SMOKING 2013 Past Drug Use History: None Reported - Past Family History Father Family Medical History: Cancer Additional Family Medical History / Comment(s): Father at age 54 from [facility] [place] [facility]. Had lung CA, liver CA and brain CA. Mother Family Medical History: COPD, Pneumonia Additional Family Medical History / Comment(s): Mother at age 70 of copd complicated by pneumonia. Medications and Allergies Home Medications Medication Instructions Recorded Confirmed Type ALPRAZolam [Xanax] 0.25 mg PO Q8H PRN 08/01/22 08/01/22 History Budesonide [Pulmicort] 0.5 mg INHALATION RT-BID 08/01/22 08/01/22 History Cyclobenzaprine [Flexeril] 5 mg PO TID PRN 08/01/22 08/01/22 History HYDROcodone/APAP 10-325MG [[place] 1 tab PO Q6H PRN 08/01/22 08/01/22 History 10-325] Ibuprofen [Motrin] 800 mg PO TID PRN 08/01/22 08/01/22 History Ipratropium-Albuterol Nebulize 3 ml INHALATION RT-QID 08/01/22 08/01/22 History [Duoneb 0.5 mg-3 mg/3 ml Soln] Allergies Allergy/AdvReac Type Severity Reaction Status Date / Time meperidine HCl [From Demerol] Allergy Severe Nausea & Verified 08/01/22 11:48 Vomiting Physical Exam Vitals: Vital Signs Temp Pulse Pulse Resp BP BP Pulse Ox 08/02/22 11:20 100 08/02/22 09:50 116 H 18 08/02/22 08:13 98 08/02/22 07:59 100 08/02/22 07:48 100 08/02/22 07:31 98.4 F 116 H 18 109/74 98 08/02/22 06:47 99 08/02/22 06:38 101 H 08/02/22 01:45 98.0 F 114 H 21 123/76 93 L 08/01/22 21:03 111 H 08/01/22 20:48 110 H 08/01/22 20:00 111 H 08/01/22 19:08 97.4 F L 112 H 22 137/80 96 08/01/22 16:04 98.0 F 124 H 18 124/76 96 08/01/22 15:55 104 H 08/01/22 15:44 102 H 08/01/22 14:30 101 H 20 113/78 95 08/01/22 14:00 103 H 20 115/77 95 08/01/22 13:30 114 H 18 116/80 95 08/01/22 13:00 114 H 16 116/96 95 08/01/22 12:30 112 H 18 129/81 96 08/01/22 12:21 110 H 08/01/22 12:11 100 99 08/01/22 12:00 90 20 124/78 96 08/01/22 11:30 101 H 18 122/73 95 FiO2 08/02/22 11:20 08/02/22 09:50 08/02/22 08:13 21 08/02/22 07:59 08/02/22 07:48 08/02/22 07:31 08/02/22 06:47 08/02/22 06:38 08/02/22 01:45 08/01/22 21:03 08/01/22 20:48 08/01/22 20:00 08/01/22 19:08 08/01/22 16:04 08/01/22 15:55 08/01/22 15:44 08/01/22 14:30 08/01/22 14:00 08/01/22 13:30 08/01/22 13:00 08/01/22 12:30 08/01/22 12:21 08/01/22 12:11 08/01/22 12:00 08/01/22 11:30 Intake and Output 08/01/22 08/02/22 08/02/22 22:59 06:59 14:59 Intake Total 480 200 Balance 480 200 Intake: Oral 480 200 Other: # Voids 2 2 Weight 79.379 kg 74.3 kg - Constitutional General appearance: average body habitus, cooperative, disheveled - EENT Eyes: EOMI, PERRLA ENT: normal oropharynx Ears: bilateral: normal - Neck Neck: normal ROM Carotids: bilateral: upstroke normal Thyroid: bilateral: normal size - Respiratory Respiratory: bilateral: diminished, prolonged expiration - Cardiovascular Rhythm: regular Heart sounds: normal: S1, S2 - Gastrointestinal General gastrointestinal: normal bowel sounds, soft - Neurologic Neurologic: CNII-XII intact - Musculoskeletal Musculoskeletal: gait normal, generalized weakness, strength equal bilaterally - Psychiatric Psychiatric: A&O x's 3, appropriate affect, intact judgment & insight Results - Laboratory Findings CBC and BMP: 08/01/22 09:19 08/01/22 09:19 PT/INR, D-dimer PT 10.1 sec (9.0-12.0) 08/01/22 09:19 INR 1.0 (<1.2) 08/01/22 09:19 Abnormal lab findings: Abnormal Labs 08/01/22 09:19 Creatinine 0.58 L - Diagnostic Findings Chest x-ray: report reviewed, image reviewed (Finding as noted above) Assessment and Plan Assessment: Acute superior COPD exacerbation Tracheobronchitis Long standing history of nicotine abuse and smoked Plan: Continue bronchodilators Continue steroids Supplemental oxygen as needed Increase activity as tolerated Deep breathing exercise incentive spirometry Rocephin can be changed to simple antibiotics like doxycycline or Bactrim Time with Patient: Greater than 30
[2022-08-02] MEDS: ACETAMINOPHEN TAB 325 MG TAB PO PRN (12:24)
[2022-08-02] MEDS ORDERED: DEXTROSE 50% SYRINGE 50 ML IVP PRN ×2 (13:44)
--- NOTE | 2022-08-02 13:46 | P.HPIM ---
History of Present Illness H&P Date: 08/02/22 Chief Complaint: Progressive shortness of breath This is a pleasant 62-year-old gentleman presented to the ER with past medical history of COPD, emphysema, former nicotine dependence-quit 8-9 years ago, and multiple other medical issues presented to the ER with complaints of progressive shortness of breath. Reports he returned from [place] on the of this month, some seasonal ALLERGIES, though as if he was developing an upper respiratory infection on Tuesday when he attended his granddaughter's sports event. Performed multiple tests at home testing negative for covid. Reports productive cough with greenish alvarado sputum at home-nonproductive since admission. Patient also states he had diarrhea up until the day before admission, currently none. Fluctuating mild tachycardia up into the 1 teens, telemetry reporting sinus tachycardia, EKG reported sinus tachycardia on admission. Denies chest pain, reports chest pressure with coughing. Troponin negative 1.Afebrile, normal WBC. Chest x-ray reporting no acute cardiopulmonary disease process, moderate to severe COPD changes. Hematology, coagulation and chemistry panel is unremarkable. Viral testing ordered. Maintaining O2 sats in the 90s on room air. Review of Systems ROS Statement: Those systems with pertinent positive or pertinent negative responses have been documented in the HPI. ROS Other: All systems not noted in ROS Statement are negative. Past Medical History Past Medical History: COPD Additional Past Medical History / Comment(s): EMPHYSEMA, SOB, migraines, psoriasis, arthritis, pt had an arrhythmia in the past/in his 20's had cardioversion/no issues since, chronic neck and back pain. 30% of lung function. 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 HEMORRHOID SX, COLONOSCOPY, EGD. Biopsy of lungs/no cancer. Past Anesthesia/Blood Transfusion Reactions: No Reported Reaction Past Psychological History: No Psychological Hx Reported Smoking Status: Former smoker Past Alcohol Use History: Occasional Additional Past Alcohol Use History / Comment(s): QUIT SMOKING 2013 Past Drug Use History: None Reported - Past Family History Father Family Medical History: Cancer Additional Family Medical History / Comment(s): Father at age 54 from cancer. Had lung CA, liver CA and brain CA. Mother Family Medical History: COPD, Pneumonia Additional Family Medical History / Comment(s): Mother at age 70 of copd complicated by pneumonia. Medications and Allergies Home Medications Medication Instructions Recorded Confirmed Type ALPRAZolam [Xanax] 0.25 mg PO Q8H PRN 08/01/22 08/01/22 History Budesonide [Pulmicort] 0.5 mg INHALATION RT-BID 08/01/22 08/01/22 History Cyclobenzaprine [Flexeril] 5 mg PO TID PRN 08/01/22 08/01/22 History HYDROcodone/APAP 10-325MG [[place] 1 tab PO Q6H PRN 08/01/22 08/01/22 History 10-325] Ibuprofen [Motrin] 800 mg PO TID PRN 08/01/22 08/01/22 History Ipratropium-Albuterol Nebulize 3 ml INHALATION RT-QID 08/01/22 08/01/22 History [Duoneb 0.5 mg-3 mg/3 ml Soln] Allergies Allergy/AdvReac Type Severity Reaction Status Date / Time meperidine HCl [From Demerol] Allergy Severe Nausea & Verified 08/01/22 11:48 Vomiting Physical Exam Vitals: Vital Signs Temp Pulse Pulse Pulse Pulse Resp BP 08/02/22 12:07 123 H 147 H 08/02/22 11:32 123 H 08/02/22 11:20 100 08/02/22 09:50 116 H 18 08/02/22 08:13 08/02/22 07:59 100 08/02/22 07:48 100 08/02/22 07:31 98.4 F 116 H 18 08/02/22 06:47 99 08/02/22 06:38 101 H 08/02/22 01:45 98.0 F 114 H 21 08/01/22 21:03 111 H 08/01/22 20:48 110 H 08/01/22 20:00 111 H 08/01/22 19:08 97.4 F L 112 H 22 08/01/22 16:04 98.0 F 124 H 18 08/01/22 15:55 104 H 08/01/22 15:44 102 H 08/01/22 14:30 101 H 20 113/78 08/01/22 14:00 103 H 20 115/77 08/01/22 13:30 114 H 18 116/80 BP Pulse Ox Pulse Ox Pulse Ox FiO2 08/02/22 12:07 97 92 L 08/02/22 11:32 08/02/22 11:20 08/02/22 09:50 08/02/22 08:13 98 21 08/02/22 07:59 08/02/22 07:48 08/02/22 07:31 109/74 98 08/02/22 06:47 08/02/22 06:38 08/02/22 01:45 123/76 93 L 08/01/22 21:03 08/01/22 20:48 08/01/22 20:00 08/01/22 19:08 137/80 96 08/01/22 16:04 124/76 96 08/01/22 15:55 08/01/22 15:44 08/01/22 14:30 95 08/01/22 14:00 95 08/01/22 13:30 95 Intake and Output 08/01/22 08/02/22 08/02/22 22:59 06:59 14:59 Intake Total 480 380 Balance 480 380 Intake: Oral 480 380 Other: # Voids 2 2 Weight 79.379 kg 74.3 kg PHYSICAL EXAM: VITAL SIGNS: [As above] GENERAL: Sitting up in bed, no acute distress HEENT: Conjunctivae normal. eyes normal. Oral mucosa moist NECK: Supple, No JVD. No thyroid enlargement. No LNs CARDIOVASCULAR: S1, S2, occasional mild tachycardia. No murmur RESPIRATION: Breath sounds diminished in the bases. Prolonged expiration with Scattered rhonchi and fine basilar expiratory wheezes ABDOMEN: Soft, nondistended, nontender . No guarding. no masses palpable. No ascites, No hepatosplenomegaly.Bowel sounds heard. LEGS: No edema. no swelling PSYCHIATRY: Alert and oriented X3, mood and affect normal. NERVOUS SYSTEM: Cranial N 2-12 grossly normal.No focal deficits. Strength and sensation grossly intact. Skin: Warm and dry, no rash Results CBC & Chem 7: 08/01/22 09:19 08/01/22 09:19 Thrombosis Risk Factor Assmnt - Choose All That Apply Any of the Below Risk Factors Present?: Yes Each Factor Represents 1 point: Abnormal pulmonary function (COPD), Serious lung disease incl. pneumonia (< 1month) Each Risk Factor Represents 3 Points: Family history of DVT/PE Other congenital or acquired thrombophilia - If yes, enter type in comment: No Thrombosis Risk Factor Assessment Total Risk Factor Score: 5 Thrombosis Risk Factor Assessment Level: High Risk Assessment and Plan Assessment: Acute COPD exacerbation with tracheobronchitis Sinus tachycardia secondary to the above. Recent Covid infection 08/28/2022 in a patient with 3 vaccinations- 2 MAderna,1 pfeizer, in addition to his flu vaccine last fall History of extensive nicotine dependence, quit 8-9 years ago Plan: Continue on current medication regime ,monitoring and symptomatic t reatment. Maintain aggressive pulmonary toileting including nebulized bronchodilators, IV steroids, IV antibiotics. Pulmonary consult in place, recommendations pending. Ruling out influenza A/B/RSV/coronavirus. Up in chair for meals, increase ambulation as tolerated. The impression and plan of care has been dictated as directed. : I performed a history and examination of this patient, discussed the same with the dictator. I agree with the dictator's note ,documented as a scribe. Any additional findings or plans will be noted.
[2022-08-02 16:18] LABS: Glucose,Whole Blood 141 mg/dL (70-110)
[2022-08-02] MEDS: INSULIN ASPART (NovoLOG) 100 UNIT/ML VIAL SQ SCH ×2 (16:29→20:19)
[2022-08-02] MEDS ORDERED: TOPIRAMATE 25 MG TAB PO ONE (16:49)
[2022-08-02 20:01] LABS: Glucose,Whole Blood 144 mg/dL (70-110)
[2022-08-02] MEDS: BENZONATATE 100 MG CAP PO PRN (22:27)
[2022-08-03 06:05] LABS: Glucose,Whole Blood 117 mg/dL (70-110)
[2022-08-03] MEDS: INSULIN ASPART (NovoLOG) 100 UNIT/ML VIAL SQ SCH ×4 (06:07→20:15)
[2022-08-03] MEDS: methylPREDNISolone SOD SUCCI 125 MG/2 ML VIAL IV SCH ×4 (06:15→23:19)
[2022-08-03] MEDS: BENZONATATE 100 MG CAP PO PRN ×2 (06:18→21:06)
[2022-08-03] MEDS: IPRATROPIUM-ALBUTEROL 3 ML NEB INHALATION SCH ×4 (08:13→20:42)
[2022-08-03] MEDS: BUDESONIDE 0.5 MG/2 ML NEBU INHALATION SCH ×2 (08:13→20:42)
[2022-08-03] MEDS: ALPRAZolam 0.25 MG TAB PO PRN ×2 (08:48→21:08)
[2022-08-03] MEDS ORDERED: TOPIRAMATE 25 MG TAB PO STA (09:05)
[2022-08-03 11:45] LABS: Glucose,Whole Blood 118 mg/dL (70-110)
[2022-08-03] MEDS ORDERED: BUTALB/APAP/CAFF 50-325-40MG TAB PO STA (14:16)
[2022-08-03] MEDS: DOCUSATE 100 MG CAP PO SCH ×2 (14:51→19:57)
--- NOTE | 2022-08-03 15:06 | P.PN ---
Subjective Progress Note Date: 08/03/22 H&P Date: 08/02/22 Chief Complaint: Progressive shortness of breath This is a pleasant 62-year-old gentleman presented to the ER with past medical history of COPD, emphysema, former nicotine dependence-quit 8-9 years ago, and multiple other medical issues presented to the ER with complaints of progressive shortness of breath. Reports he returned from [place] on the of this month, some seasonal ALLERGIES, though as if he was developing an upper res piratory infection on Tuesday when he attended his granddaughter's sports event. Performed multiple tests at home testing negative for covid. Reports productive cough with greenish alvarado sputum at home-nonproductive since admission. Patient also states he had diarrhea up until the day before adm ission, currently none. Fluctuating mild tachycardia up into the 1 teens, telemetry reporting sinus tachycardia, EKG reported sinus tachycardia on admission. Denies chest pain, reports chest pressure with coughing. Troponin negative 1.Afebrile, normal WBC. Chest x-ray reporting no acute cardiopu lmonary disease process, moderate to severe COPD changes. Hematology, coagulation and chemistry panel is unremarkable. Viral testing ordered. Maintaining O2 sats in the 90s on room air. 08/03/22 reports episodic nonproductive coughing, throughout the night accompanied by shortness of breath. Tessalon Perles initiated-this morning reports less cough, productive with green sputum. Continues to have bronchospasms with coughing. Complains of migraine headache related to coughing. Increased wheezing today. Reports no bowel movement since Tuesday. Oxygen recently removed, currently maintaining O2 sats in the high 90s to 100% on room air. Afebrile.one of two preliminary blood cultures reporting Staphylococcus epidermidis and Staphylococcus lugdunenisis. Currently maintained on ceftriaxone. Objective - Vital Signs Vital signs: Vital Signs Temp 96.9 F L 08/03/22 06:53 Pulse 84 08/03/22 11:48 Resp 19 08/03/22 06:53 BP 123/79 08/03/22 06:53 Pulse Ox 99 08/03/22 11:37 FiO2 21 08/02/22 08:13 Intake & Output 08/02/22 08/03/22 08/03/22 18:59 06:59 18:59 Intake Total 380 Balance 380 Weight 74.8 kg Intake: Oral 380 Other: # Voids 3 1 - Exam PHYSICAL EXAM: VITAL SIGNS: [As above] GENERAL: Alert and oriented 3, Sitting up at side of bed, no acute distress HEENT: Conjunctivae normal. eyes normal. Oral mucosa moist NECK: Supple, No JVD. No thyroid enlargement. No LNs CARDIOVASCULAR: S1, S2, occasional mild tachycardia. No murmur RESPIRATION: Breath sounds diminished in the bases. Prolonged expiration with Scattered rhonchi and increased expiratory wheezes ABDOMEN: Soft, nondistended, nontender . No guarding. no masses palpable. Bowel sounds heard. LEGS: No edema. no swelling NERVOUS SYSTEM: Cranial N 2-12 grossly normal.No focal deficits. Strength and sensation grossly intact. Skin: Warm and dry, no rash Microbiology 08/01/22 09:19 Blood Blood Culture - Preliminary 08/01/22 09:10 Blood Blood Culture Gram Stain - Preliminary 08/01/22 09:10 Blood Blood Culture - Preliminary Staphylococcus epidermidis Staphylococcus lugdunenisis - Labs CBC & Chem 7: 08/01/22 09:19 08/01/22 09:19 Labs: Abnormal Lab Results - Last 24 Hours (Table) 08/02/22 08/02/22 08/03/22 Range/Units 16:16 20:00 06:04 POC Glucose (mg/dL) 141 H 144 H 117 H (70-110) mg/dL 08/03/22 Range/Units 11:44 POC Glucose (mg/dL) 118 H (70-110) mg/dL Microbiology - Last 24 Hours (Table) 08/01/22 09:19 Blood Culture - Preliminary Blood 08/01/22 09:10 Blood Culture Gram Stain - Preliminary Blood Blood Culture - Preliminary Staphylococcus epidermidis Staphylococcus lugdunenisis Assessment and Plan Assessment: Acute COPD exacerbation with tracheobronchitis Possible bacteremia, preliminary one of 2 blood cultures reporting Staphylococcus epidermidis and Staphylococcus lugdunenisis. Sinus tachycardia secondary to the above. Recent Covid infection 08/28/2022 in a patient with 3 vaccinations- 2 MAderna,1 pfeizer, in addition to his flu vaccine last fall History of extensive nicotine dependence, quit 8-9 years ago Plan: Continue on current medication regime ,monitoring and symptomatic treatment. Maintain aggressive pulmonary toileting including nebulized bronchodilators, IV steroids, IV antibiotics. Evaluated by pulmonary with recommendations noted .one of two preliminary blood cultures reporting Staphylococcus epidermidis and Staphylococcus lugdunenisis. Antibiotics adjusted to unasyn.sensitivities of cultures, pending, possible contamination. Repeat blood cultures ordered. ID consulted. The impression and plan of care has been dictated as directed. : I performed a history and examination of this patient, discussed the same with the dictator. I agree with the dictator's note ,documented as a scribe. Any additional findings or plans will be noted.
[2022-08-03] MEDS ORDERED: PIPERACILLIN-TAZOBACTAM 3.375 GM in SODIUM CHLORIDE 0.9% 100 ML IVPB SCH (16:00)
[2022-08-03] MEDS ORDERED: AMPICILLIN-SULBACTAM 3 GM in SODIUM CHLORIDE 0.9% 100 ML IVPB SCH (16:00)
[2022-08-03 16:37] LABS: Glucose,Whole Blood 138 mg/dL (70-110)
[2022-08-03] MEDS: TOPIRAMATE 25 MG TAB PO SCH (19:57)
[2022-08-03 20:09] LABS: Glucose,Whole Blood 120 mg/dL (70-110)
[2022-08-03] MEDS ORDERED: VANCOMYCIN IV PER PHARMACY 1 EACH MISC MISCELLANE PRN (21:02)
--- NOTE | 2022-08-03 21:02 | P.CONS ---
History of Present Illness - Reason for Consult Consult date: 08/03/22 - History of Present Illness Patient is a 62-year-old male with a past medical history significant for emphysema psoriasis arthritis in this patient presented to hospital for evaluation of increasing shortness of breath symptom has been going on for about 5 to 7 days and recently returned from [place] of this month she started with mostly URI symptoms however after the patient noticed to have increasing shor tness of breath he did have a cough moderate intensity him bring up some greenish sputum no hemoptysis or pleuritic chest pain patient denies any nausea no vomiting no abdominal pain or any diarrhea on presentation to the hospital patient was afebrile and no fever has been recorded subsequently patient was not hypoxic or need for supplemental oxygen patient did have normal white count with no left shift kidney function has been normal liver enzymes are normal influenza RSV and COVID testing was negative patient did have blood cultures drawn one of them is growing Staphylococcus epidermidis and Staphylococcus Lugdunensis that has prompted this infectious disease consultation patient mention already feeling better since being admitted to hospital in this patient has been treated initially with Rocephin and Solu-Medrol subsequently has been switched over to Unasyn Past Medical History Past Medical History: COPD Additional Past Medical History / Comment(s): EMPHYSEMA, SOB, migraines, psoriasis, arthritis, pt had an arrhythmia in the past/in his 20's had cardioversion/no issues since, chronic neck and back pain. 30% of lung function. 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 HEMORRHOID SX, COLONOSCOPY, EGD. Biopsy of lungs/no cancer. Past Anesthesia/Blood Transfusion Reactions: No Reported Reaction Past Psychological History: No Psychological Hx Reported Smoking Status: Former smoker Past Alcohol Use History: Occasional Additional Past Alcohol Use History / Comment(s): QUIT SMOKING 2013 Past Drug Use History: None Reported - Past Family History Father Family Medical History: Cancer Additional Family Medical History / Comment(s): Father at age 54 from cancer. Had lung CA, liver CA and brain CA. Mother Family Medical History: COPD, Pneumonia Additional Family Medical History / Comment(s): Mother at age 70 of copd complicated by pneumonia. Medications and Allergies Home Medications Medication Instructions Recorded Confirmed Type ALPRAZolam [Xanax] 0.25 mg PO Q8H PRN 08/01/22 08/01/22 History Budesonide [Pulmicort] 0.5 mg INHALATION RT-BID 08/01/22 08/01/22 History Cyclobenzaprine [Flexeril] 5 mg PO TID PRN 08/01/22 08/01/22 History HYDROcodone/APAP 10-325MG [[place] 1 tab PO Q6H PRN 08/01/22 08/01/22 History 10-325] Ibuprofen [Motrin] 800 mg PO TID PRN 08/01/22 08/01/22 History Ipratropium-Albuterol Nebulize 3 ml INHALATION RT-QID 08/01/22 08/01/22 History [Duoneb 0.5 mg-3 mg/3 ml Soln] Allergies Allergy/AdvReac Type Severity Reaction Status Date / Time meperidine HCl [From Demerol] Allergy Severe Nausea & Verified 08/01/22 11:48 Vomiting Physical Exam Vitals: Vital Signs Temp Pulse Pulse Resp BP Pulse Ox 08/03/22 13:57 97.5 F L 107 H 18 121/74 96 08/03/22 11:48 84 08/03/22 11:37 99 08/03/22 11:35 82 08/03/22 08:30 98 08/03/22 08:17 99 08/03/22 08:13 96 08/03/22 06:53 96.9 F L 68 19 123/79 99 08/03/22 02:00 98.6 F 81 16 120/74 99 08/02/22 22:06 108 H 08/02/22 21:50 104 H 08/02/22 20:00 97.6 F 102 H 18 105/77 96 Intake and Output 08/03/22 08/03/22 08/03/22 06:59 14:59 22:59 Other: # Voids 1 Weight 74.8 kg Results CBC & Chem 7: 08/01/22 09:19 08/01/22 09:19 Labs: Abnormal Lab Results - Last 24 Hours (Table) 08/02/22 08/02/22 08/03/22 Range/Units 16:16 20:00 06:04 POC Glucose (mg/dL) 141 H 144 H 117 H (70-110) mg/dL 08/03/22 Range/Units 11:44 POC Glucose (mg/dL) 118 H (70-110) mg/dL Microbiology - Last 24 Hours (Table) 08/01/22 09:19 Blood Culture - Preliminary Blood 08/01/22 09:10 Blood Culture Gram Stain - Preliminary Blood Blood Culture - Preliminary Staphylococcus epidermidis Staphylococcus lugdunenisis Assessment and Plan Plan: 1patient presented to hospital with increasing shortness of breath which is likely related to COPD exacerbation with a tracheobronchitis as the patient chest x-ray were negative for acute cardiopulmonary disease now with evidence of positive blood culture staph epi is more likely skin contamination however Staphylococcus lugdunesis and associated with infection question of possible pneumonia 2-blood culture has been repeated 3-we will obtain a CRP procalcitonin and sputum culture 4-switch antibiotic to vancomycin while waiting for the sensitivity of this pathogen We will follow on clinical condition and cultures to further adjust medication if needed Thank you for this consultation we will follow the patient along with you Time with Patient: Greater than 30
[2022-08-03] MEDS ORDERED: VANCOMYCIN 1,500 MG in SODIUM CHLORIDE 0.9% 500 ML 500 ML IVPB ONE (21:30)
[2022-08-04 05:43] LABS: Glucose,Whole Blood 128 mg/dL (70-110)
[2022-08-04] MEDS: INSULIN ASPART (NovoLOG) 100 UNIT/ML VIAL SQ SCH ×4 (05:53→20:53)
[2022-08-04] MEDS: VANCOMYCIN 1,250 MG in SODIUM CHLORIDE 0.9% 250 ML IVPB SCH ×3 (05:57→20:52)
[2022-08-04] MEDS: methylPREDNISolone SOD SUCCI 125 MG/2 ML VIAL IV SCH ×4 (05:57→23:21)
[2022-08-04] MEDS: BENZONATATE 100 MG CAP PO PRN ×2 (05:59→14:29)
[2022-08-04] MEDS: ALPRAZolam 0.25 MG TAB PO PRN ×3 (05:59→23:22)
[2022-08-04] MEDS: BUTALB/APAP/CAFF 50-325-40MG TAB PO PRN ×2 (05:59→12:14)
[2022-08-04] MEDS: IPRATROPIUM-ALBUTEROL 3 ML NEB INHALATION SCH ×2 (06:43→11:06)
[2022-08-04] MEDS: BUDESONIDE 0.5 MG/2 ML NEBU INHALATION SCH ×3 (06:46→20:27)
[2022-08-04] MEDS: DOCUSATE 100 MG CAP PO SCH ×2 (08:46→20:52)
[2022-08-04] MEDS: TOPIRAMATE 25 MG TAB PO SCH ×2 (08:46→20:52)
[2022-08-04 11:30] LABS: African American GFR (CKD) 112.8 (60.0-200.0); BUN/Creat Ratio 24.22 Ratio (12.00-20.00); Blood Urea Nitrogen 18.6 mg/dL (9.0-27.0); C Reactive Protein <0.30 mg/dL (0.00-0.80); Calcium 9.2 mg/dL (8.7-10.3); Carbon Dioxide 22.2 mmol/L (20.0-27.5); Chloride 108 mmol/L (96-109); Glucose 108 mg/dL (70-110); Magnesium 2.1 mg/dL (1.5-2.4); Non-African American GFR(CKD) 97.4 (60.0-200.0); Potassium 4.7 mmol/L (3.5-5.5); Sodium 141 mmol/L (135-145)
[2022-08-04 12:16] LABS: Basophils # (A) 0.02 X 10*3/uL (0.00-0.10); Basophils % (A) 0.1 %; Eosinophils # (A) 0 X 10*3/uL (0.04-0.35); Eosinophils % (A) 0 %; HCT 41.5 % (39.6-50.0); HGB 13.5 g/dL (13.0-17.0); Immature Grans, Automated 0.7 %; MCH 29.9 pg (27.0-32.0); MCHC 32.5 g/dL (32.0-37.0); Mean Platelet Volume 9.9 fL (9.5-12.2); Monocytes # (A) 0.38 X 10*3/uL (0.20-1.00); Monocytes % (A) 2.6 %; NRBC Per 100 WBC 0 /100 WBCS (0.0-0.0); Neutrophils # (A) 12.84 X 10*3/uL (1.80-7.70); Neutrophils % (A) 89.6 %; Platelet Count 273 X 10*3/uL (140-440); RBC 4.51 X 10*6/uL (4.40-5.60); RDW 13.9 % (11.5-14.5); WBC 14.34 X 10*3/uL (4.50-10.00)
[2022-08-04 12:17] LABS: Glucose,Whole Blood 113 mg/dL (70-110)
--- NOTE | 2022-08-04 12:48 | XR ---
EXAMINATION TYPE: XR chest 2V DATE OF EXAM: 08/04/2022 COMPARISON: 08/01/2022 TECHNIQUE: PA and lateral views submitted. HISTORY: Cough FINDINGS: The lungs are clear and there is no pneumothorax, pleural effusion, or focal pneumonia. Heart size normal and no overt failure. Osseous structures demonstrate hypertrophic and degenerative changes of the spine. Hyperinflation. Biapical pleural thickening stable. Somewhat nodular density seen adjacent to the cardiac lead in the left upper lobe. Degenerative changes of the spine. IMPRESSION: 1. No acute process. Correlate for COPD. There is a asymmetric nodular appearing density adjacent to the cardiac lead in the left upper lobe. Recommend CT scan of the chest.
[2022-08-04] MEDS: ALBUTEROL NEBULIZED 2.5 MG/3 ML INHALATION SCH ×2 (13:35→20:12)
[2022-08-04] MEDS: IPRATROPIUM 0.5 MG/2.5 ML NEBU INHALATION SCH ×2 (14:55→20:12)
--- NOTE | 2022-08-04 15:20 | P.PN ---
Subjective Progress Note Date: 08/04/22 Principal diagnosis: Positive blood culture Patient is a 62-year-old male with a past medical history significant for emphysema psoriasis arthritis in this patient presented to hospital for evaluation of increasing shortness of breath, patient chest x-ray negative for a cute infiltrate however blood cultures can be positive for staph epi and Staphylococcus lugdunesis On today's evaluation that is 08/04/2022, patient denies having any fever or any chills has been complaining of increasing shortness of breath today remains to be on room air continued to have a cough no vomiting no abdominal pain or diarrhea Objective - Vital Signs Vital signs: Vital Signs Temp 97.6 F 08/04/22 07:09 Pulse 78 08/04/22 11:16 Resp 20 08/04/22 11:16 BP 148/84 08/04/22 07:09 Pulse Ox 97 08/04/22 11:06 FiO2 21 08/02/22 08:13 Intake & Output 08/03/22 08/04/22 08/04/22 18:59 06:59 18:59 Other: Voiding Method Toilet # Voids 3 2 - Exam GENERAL DESCRIPTION: A middle-age male up in bed in no distress RESPIRATORY SYSTEM: Unlabored breathing , decreased breath sounds at bases HEART: S1 S2 regular rate and rhythm , ABDOMEN: Soft , no tenderness EXTREMITIES: No edema feet - Labs CBC & Chem 7: 08/04/22 05:54 08/04/22 05:54 Labs: Abnormal Lab Results - Last 24 Hours (Table) 08/03/22 08/03/22 08/04/22 Range/Units 16:35 20:07 05:42 WBC (4.50-10.00) X 10*3/uL Immature Gran # (0.00-0.04) X 10*3/uL Neutrophils # (1.80-7.70) X 10*3/uL Eosinophils # (0.04-0.35) X 10*3/uL BUN/Creatinine Ratio (12.00-20.00) Ratio POC Glucose (mg/dL) 138 H 120 H 128 H (70-110) mg/dL 08/04/22 08/04/22 08/04/22 Range/Units 05:54 05:54 12:11 WBC 14.34 H (4.50-10.00) X 10*3/uL Immature Gran # 0.10 H (0.00-0.04) X 10*3/uL Neutrophils # 12.84 H (1.80-7.70) X 10*3/uL Eosinophils # 0 L (0.04-0.35) X 10*3/uL BUN/Creatinine Ratio 24.22 H (12.00-20.00) Ratio POC Glucose (mg/dL) 113 H (70-110) mg/dL Microbiology - Last 24 Hours (Table) 08/01/22 09:10 Blood Culture Gram Stain - Final Blood Blood Culture - Final Staphylococcus epidermidis Staphylococcus lugdunenisis 08/01/22 09:19 Blood Culture - Preliminary Blood Assessment and Plan (1) Positive blood culture Current Visit: Yes Status: Acute Code(s): R78.81 - BACTEREMIA SNOMED Code(s): 908386563 Plan: 1patient presented to hospital with increasing shortness of breath which is likely related to COPD exacerbation with a tracheobronchitis as the patient chest x-ray were negative for acute cardiopulmonary disease now with evidence of positive blood culture staph epi is more likely skin contamination however Staphylococcus lugdunesis and associated with infection question of possible pneumonia 2-blood culture has been repeated and currently pending 3-patient did have a normal CRP , procalcitonin currently pending 4Patient to continue with vancomycin while waiting for repeat cultures to finalize Time with Patient: Less than 30
--- NOTE | 2022-08-04 16:07 | P.PN ---
Subjective Progress Note Date: 08/03/22 Principal diagnosis: Acute superior COPD exacerbation Tracheobronchitis Long standing history of nicotine abuse and smoked 08/03/2022, overall still have problems with ongoing shortness of breath with dyspnea as well as cough and congestion patient has acute respiratory distress due to mucous plug which eventually was able to cough out it was pearly alvarado in appearance however continued to deny hemoptysis patient remains on IV steroids breathing treatment antibiotics his blood culture has been positive for gram- positive cocci final ID hours pending 62-year-old male with prior medical history of extensive smoking and nicotine use quit 15 years ago but used to smoke heavily up to 2 packs per day for 35 years presented into the hospital with increasing shortness of breath than baseline along with cough congestion and wheezing symptoms started about a week ago has been progressive cough is mainly nonproductive along with having chest I as patient does have a long-standing history of COPD sees Dr. WONG ready for lung issues, he takes the breathing treatments on a regular basis along with MDIs on specific questioning denies any loss of conscious), denies any purulent sputum production or hemoptysis denies any weight denies any nausea vomiting diarrhea, her chest x-ray consistent with COPD-like changes but does active process identified Objective - Vital Signs Vital signs: Vital Signs Temp 96.9 F L 08/03/22 06:53 Pulse 84 08/03/22 11:48 Resp 19 08/03/22 06:53 BP 123/79 08/03/22 06:53 Pulse Ox 99 08/03/22 11:37 FiO2 21 08/02/22 08:13 Intake & Output 08/02/22 08/03/22 08/03/22 18:59 06:59 18:59 Intake Total 380 Balance 380 Weight 74.8 kg Intake: Oral 380 Other: # Voids 3 1 - Exam - Constitutional General appearance: average body habitus, cooperative, disheveled - EENT Eyes: EOMI, PERRLA ENT: normal oropharynx Ears: bilateral: normal - Neck Neck: normal ROM Carotids: bilateral: upstroke normal Thyroid: bilateral: normal size - Respiratory Respiratory: bilateral: diminished, prolonged expiration - Cardiovascular Rhythm: regular Heart sounds: normal: S1, S2 - Gastrointestinal General gastrointestinal: normal bowel sounds, soft - Neurologic Neurologic: CNII-XII intact - Musculoskeletal Musculoskeletal: gait normal, generalized weakness, strength equal bilaterally - Psychiatric Psychiatric: A&O x's 3, appropriate affect, intact judgment & insight - Labs CBC & Chem 7: 08/04/22 05:54 08/04/22 05:54 Labs: Abnormal Lab Results - Last 24 Hours (Table) 08/02/22 08/02/22 08/03/22 Range/Units 16:16 20:00 06:04 POC Glucose (mg/dL) 141 H 144 H 117 H (70-110) mg/dL 08/03/22 Range/Units 11:44 POC Glucose (mg/dL) 118 H (70-110) mg/dL Microbiology - Last 24 Hours (Table) 08/01/22 09:19 Blood Culture - Preliminary Blood 08/01/22 09:10 Blood Culture Gram Stain - Preliminary Blood Blood Culture - Preliminary Staphylococcus epidermidis Staphylococcus lugdunenisis Assessment and Plan Assessment: Acute superior COPD exacerbation Tracheobronchitis Bacteremia due to gram-positive cocci final ID is pending Long standing history of nicotine abuse and smoked Plan: Continue bronchodilators Continue steroids Supplemental oxygen as needed Increase activity as tolerated Deep breathing exercise incentive spirometry ID has been consulted for positive blood culture
--- NOTE | 2022-08-04 16:11 | P.PN ---
Subjective Progress Note Date: 08/04/22 Principal diagnosis: Acute superior COPD exacerbation Tracheobronchitis Long standing history of nicotine abuse and smoked 08/04/2022, patient seen eval examined during the rounds labs reviewed medications reviewed sitting upright in the chair breathing comfortably denies any chest pain, patient had a chest x-ray earlier today, no acute processes seen consistent with COPD asymmetric nodular appearance involving left upper lobe, patient will benefit from computed tomography scan of the chest however appears that developing pneumonia. Patient had initial blood culture positive for staph epi as well as Staph Lugduneneisis, vancomycin has been admitted and ID is following 08/03/2022, overall still have problems with ongoing shortness of breath with dyspnea as well as cough and congestion patient has acute respiratory distress due to mucous plug which eventually was able to cough out it was pearly alvarado in appearance however continued to deny hemoptysis patient remains on IV steroids breathing treatment antibiotics his blood culture has been positive for gram-positive cocci final ID hours pending 62-year-old male with prior medical history of extensive smoking and nicotine use quit 15 years ago but used to smoke heavily up to 2 packs per day for 35 years presented into the hospital with increasing shortness of breath than baseline along with cough congestion and wheezing symptoms started about a week ago has been progressive cough is mainly nonproductive along with having chest I as patient does have a long-standing history of COPD sees Dr. MARVIN bains for lung issues, he takes the breathing treatments on a regular basis along with MDIs on specific questioning denies any loss of conscious), denies any purulent sputum production or hemoptysis denies any weight Mrs. denies any nausea vomiting diarrhea, her chest x-ray consistent with COPD-like changes but does active process identified Objective - Vital Signs Vital signs: Vital Signs Temp 97.6 F 08/04/22 14:37 Pulse 77 08/04/22 15:04 Resp 18 08/04/22 15:04 BP 118/79 08/04/22 14:37 Pulse Ox 98 08/04/22 14:37 FiO2 21 08/02/22 08:13 Intake & Output 08/03/22 08/04/22 08/04/22 18:59 06:59 18:59 Other: Voiding Method Toilet # Voids 3 2 - Exam - Constitutional General appearance: average body habitus, cooperative, disheveled - EENT Eyes: EOMI, PERRLA ENT: normal oropharynx Ears: bilateral: normal - Neck Neck: normal ROM Carotids: bilateral: upstroke normal Thyroid: bilateral: normal size - Respiratory Respiratory: bilateral: diminished, prolonged expiration - Cardiovascular Rhythm: regular Heart sounds: normal: S1, S2 - Gastrointestinal General gastrointestinal: normal bowel sounds, soft - Neurologic Neurologic: CNII-XII intact - Musculoskeletal Musculoskeletal: gait normal, generalized weakness, strength equal bilaterally - Psychiatric Psychiatric: A&O x's 3, appropriate affect, intact judgment & insight - Labs CBC & Chem 7: 08/04/22 05:54 08/04/22 05:54 Labs: Abnormal Lab Results - Last 24 Hours (Table) 08/03/22 08/03/22 08/04/22 Range/Units 16:35 20:07 05:42 WBC (4.50-10.00) X 10*3/uL Immature Gran # (0.00-0.04) X 10*3/uL Neutrophils # (1.80-7.70) X 10*3/uL Eosinophils # (0.04-0.35) X 10*3/uL BUN/Creatinine Ratio (12.00-20.00) Ratio POC Glucose (mg/dL) 138 H 120 H 128 H (70-110) mg/dL 08/04/22 08/04/22 08/04/22 Range/Units 05:54 05:54 12:11 WBC 14.34 H (4.50-10.00) X 10*3/uL Immature Gran # 0.10 H (0.00-0.04) X 10*3/uL Neutrophils # 12.84 H (1.80-7.70) X 10*3/uL Eosinophils # 0 L (0.04-0.35) X 10*3/uL BUN/Creatinine Ratio 24.22 H (12.00-20.00) Ratio POC Glucose (mg/dL) 113 H (70-110) mg/dL Microbiology - Last 24 Hours (Table) 08/01/22 09:10 Blood Culture Gram Stain - Final Blood Blood Culture - Final Staphylococcus epidermidis Staphylococcus lugdunenisis 08/01/22 09:19 Blood Culture - Preliminary Blood Assessment and Plan Assessment: Acute superior COPD exacerbation Tracheobronchitis Bacteremia due to gram-positive cocci final ID staph epi and staph Lug, repeat cultures are pending vancomycin has been added Long standing history of nicotine abuse and smoked Plan: Continue bronchodilators Continue steroids Supplemental oxygen as needed Continue antibiotics along with vancomycin Increase activity as tolerated Deep breathing exercise incentive spirometry ID has been consulted for positive blood culture Time with Patient: Greater than 30
[2022-08-04 17:13] LABS: Glucose,Whole Blood 125 mg/dL (70-110)
--- NOTE | 2022-08-04 17:23 | P.PN ---
Subjective Progress Note Date: 08/04/22 H&P Date: 08/02/22 Chief Complaint: Progressive shortness of breath This is a pleasant 62-year-old gentleman presented to the ER with past medical history of COPD, emphysema, former nicotine dependence-quit 8-9 years ago, and multiple other medical issues presented to the ER with complaints of progressive shortness of breath. Reports he returned from [place] on the of this month, some seasonal ALLERGIES, though as if he was developing an upper res piratory infection on Tuesday when he attended his granddaughter's sports event. Performed multiple tests at home testing negative for covid. Reports productive cough with greenish alvarado sputum at home-nonproductive since admission. Patient also states he had diarrhea up until the day before adm ission, currently none. Fluctuating mild tachycardia up into the 1 teens, telemetry reporting sinus tachycardia, EKG reported sinus tachycardia on admission. Denies chest pain, reports chest pressure with coughing. Troponin negative 1.Afebrile, normal WBC. Chest x-ray reporting no acute cardiopu lmonary disease process, moderate to severe COPD changes. Hematology, coagulation and chemistry panel is unremarkable. Viral testing ordered. Maintaining O2 sats in the 90s on room air. 08/03/22 reports episodic nonproductive coughing, throughout the night accompanied by shortness of breath. Tessalon Perles initiated-this morning reports less cough, productive with green sputum. Continues to have bronchospasms with coughing. Complains of migraine headache related to coughing. Increased wheezing today. Reports no bowel movement since Tuesday. Oxygen recently removed, currently maintaining O2 sats in the high 90s to 100% on room air. Afebrile.one of two preliminary blood cultures reporting Staphylococcus epidermidis and Staphylococcus lugdunenisis. Currently maintained on ceftriaxone. 08/04/2022 evaluated by infectious disease with antibiotics adjusted, currently on vancomycin. Renal function stable. Reports that he is unable to take albuterol and Atrovent together-had significant difficulty during a prior hospital stay at [facility], therefore reordered each separately and scheduled for different administration times. Positive bowel movement. Tachycardia improving. Maintaining O2 sats in the high 90s on room air. Continues on IV steroids, blood sugars controlled. Continues to have bronchospasms with coughing. Sputum sample collected, pending. Normal CRP, pro-calcitonin pending. Objective - Vital Signs Vital signs: Vital Signs Temp 97.6 F 08/04/22 14:37 Pulse 77 08/04/22 15:04 Resp 18 08/04/22 15:04 BP 118/79 08/04/22 14:37 Pulse Ox 98 08/04/22 14:37 FiO2 21 08/02/22 08:13 Intake & Output 08/03/22 08/04/22 08/04/22 18:59 06:59 18:59 Other: Voiding Method Toilet # Voids 3 2 - Exam PHYSICAL EXAM: VITAL SIGNS: [As above] GENERAL: Alert and oriented 3, Sitting up at side of bed, no acute distress HEENT: Atraumatic, normocephalic Conjunctivae normal. eyes normal. Oral mucosa moist NECK: Supple, No JVD. CARDIOVASCULAR: S1, S2, occasional mild tachycardia. No murmur RESPIRATION: Breath sounds diminished in the bases. ABDOMEN: Soft, nondistended, nontender . No guarding. no masses palpable. Bowel sounds heard. LEGS: No edema. no swelling, no calf tenderness, positive DP pulses NERVOUS SYSTEM: Cranial N 2-12 grossly normal.No focal deficits. Strength and sensation grossly intact. Skin: Warm and dry, no rash Microbiology 08/04/22 06:57 Sputum Sputum Culture - Preliminary 08/01/22 09:10 Blood Blood Culture Gram Stain - Final 08/01/22 09:10 Blood Blood Culture - Final Staphylococcus epidermidis Staphylococcus lugdunenisis 08/01/22 09:19 Blood Blood Culture - Preliminary - Labs CBC & Chem 7: 08/04/22 05:54 08/04/22 05:54 Labs: Abnormal Lab Results - Last 24 Hours (Table) 08/03/22 08/04/22 08/04/22 Range/Units 20:07 05:42 05:54 WBC 14.34 H (4.50-10.00) X 10*3/uL Immature Gran # 0.10 H (0.00-0.04) X 10*3/uL Neutrophils # 12.84 H (1.80-7.70) X 10*3/uL Eosinophils # 0 L (0.04-0.35) X 10*3/uL BUN/Creatinine Ratio (12.00-20.00) Ratio POC Glucose (mg/dL) 120 H 128 H (70-110) mg/dL 08/04/22 08/04/22 Range/Units 05:54 12:11 WBC (4.50-10.00) X 10*3/uL Immature Gran # (0.00-0.04) X 10*3/uL Neutrophils # (1.80-7.70) X 10*3/uL Eosinophils # (0.04-0.35) X 10*3/uL BUN/Creatinine Ratio 24.22 H (12.00-20.00) Ratio POC Glucose (mg/dL) 113 H (70-110) mg/dL Microbiology - Last 24 Hours (Table) 08/04/22 06:57 Sputum Culture - Preliminary Sputum 08/01/22 09:10 Blood Culture Gram Stain - Final Blood Blood Culture - Final Staphylococcus epidermidis Staphylococcus lugdunenisis 08/01/22 09:19 Blood Culture - Preliminary Blood Assessment and Plan Assessment: Acute COPD exacerbation with tracheobronchitis Bacteremia, preliminary one of 2 blood cultures reporting Staphylococcus epidermidis, suspect skin contamination and Staphylococcus lugdunenisis-possible pneumonia, community-acquired. Sinus tachycardia secondary to the above. Recent Covid infection 08/28/2022 in a patient with 3 vaccinations- 2 MAderna,1 pfeizer, in addition to his flu vaccine last fall History of extensive nicotine dependence, quit 8-9 years ago Plan: Continue on current medication regime ,monitoring and symptomatic treatmen t. Pro-calcitonin pending. Repeat chest x-ray ordered. IV antibiotics as per infectious disease, cultures finalizing. Aggressive pulmonary toileting including nebulized bronchodilators, IV steroids. Evaluated by pulmonary with recommendations noted. Repeat blood cultures ordered. The impression and plan of care has been dictated as directed. : I performed a history and examination of this patient, discussed the same with the dictator. I agree with the dictator's note ,documented as a scribe. Any additional findings or plans will be noted.
[2022-08-04] MEDS: ALBUTEROL NEBULIZED 2.5 MG/3 ML INHALATION PRN (20:24)
[2022-08-04 20:31] LABS: Glucose,Whole Blood 134 mg/dL (70-110)
[2022-08-05] MEDS ORDERED: VANCOMYCIN TROUGH DUE 1 EACH MISC MISCELLANE ONE (05:00)
[2022-08-05 05:42] LABS: Glucose,Whole Blood 114 mg/dL (70-110)
[2022-08-05] MEDS: INSULIN ASPART (NovoLOG) 100 UNIT/ML VIAL SQ SCH ×4 (06:32→21:20)
[2022-08-05] MEDS: methylPREDNISolone SOD SUCCI 125 MG/2 ML VIAL IV SCH ×3 (06:33→17:56)
[2022-08-05] MEDS: VANCOMYCIN 1,250 MG in SODIUM CHLORIDE 0.9% 250 ML IVPB SCH ×2 (06:33→15:37)
[2022-08-05] MEDS: BUTALB/APAP/CAFF 50-325-40MG TAB PO PRN ×2 (06:42→10:33)
[2022-08-05] MEDS: BENZONATATE 100 MG CAP PO PRN (06:42)
[2022-08-05] MEDS ORDERED: IPRATROPIUM-ALBUTEROL 3 ML NEB INHALATION SCH (08:00)
[2022-08-05] MEDS: TOPIRAMATE 25 MG TAB PO SCH ×2 (08:48→21:24)
[2022-08-05] MEDS: DOCUSATE 100 MG CAP PO SCH ×2 (08:48→21:24)
[2022-08-05] MEDS: ALPRAZolam 0.25 MG TAB PO PRN ×2 (08:55→21:27)
[2022-08-05] MEDS: ALBUTEROL NEBULIZED 2.5 MG/3 ML INHALATION SCH ×4 (09:44→20:07)
[2022-08-05] MEDS: BUDESONIDE 0.5 MG/2 ML NEBU INHALATION SCH ×2 (09:44→20:07)
[2022-08-05 10:33] LABS: Basophils # (A) 0.01 X 10*3/uL (0.00-0.10); Basophils % (A) 0.1 %; Eosinophils # (A) 0 X 10*3/uL (0.04-0.35); Eosinophils % (A) 0 %; HCT 40.9 % (39.6-50.0); HGB 13.2 g/dL (13.0-17.0); Lymphocytes # (A) 0.82 X 10*3/uL (0.90-5.00); Lymphocytes % (A) 7.3 %; MCH 29.9 pg (27.0-32.0); MCHC 32.3 g/dL (32.0-37.0); MCV 92.7 fL (80.0-97.0); Mean Platelet Volume 10.2 fL (9.5-12.2); Monocytes # (A) 0.38 X 10*3/uL (0.20-1.00); Monocytes % (A) 3.4 %; NRBC Per 100 WBC 0 /100 WBCS (0.0-0.0); Neutrophils # (A) 9.93 X 10*3/uL (1.80-7.70); Neutrophils % (A) 88.2 %; Platelet Count 281 X 10*3/uL (140-440); RBC 4.41 X 10*6/uL (4.40-5.60); RDW 13.9 % (11.5-14.5); WBC 11.25 X 10*3/uL (4.50-10.00)
[2022-08-05 10:35] LABS: African American GFR (CKD) 117.2 (60.0-200.0); Anion Gap 9.5 mmol/L (10.00-18.00); BUN/Creat Ratio 27.29 Ratio (12.00-20.00); Blood Urea Nitrogen 19.1 mg/dL (9.0-27.0); Calcium 8.9 mg/dL (8.7-10.3); Carbon Dioxide 24.5 mmol/L (20.0-27.5); Non-African American GFR(CKD) 101.1 (60.0-200.0)
[2022-08-05 11:28] LABS: Glucose,Whole Blood 136 mg/dL (70-110)
--- NOTE | 2022-08-05 12:43 | CT ---
EXAMINATION TYPE: CT chest wo con DATE OF EXAM: 08/05/2022 COMPARISON: Chest CT November 18, 2020 and older CTs. Chest x-ray from yesterday HISTORY: JAMES asymmetric density. Abnormal chest x-ray. CT DLP: 354.7 mGycm. Automated Exposure Control for Dose Reduction was Utilized. TECHNIQUE: CT scan of the thorax is performed without IV contrast. FINDINGS: LUNGS: Advanced underlying emphysematous change is redemonstrated. Persistent moderate left greater t looney right biapical pleural/parenchymal scarring significantly changed from most recent CT. No new nod ules or masses. No pleural effusion or pneumothorax is seen. MEDIASTINUM: Lack of IV contrast is noted to limit evaluation for mediastinal and especially hilar ad enopathy. There are no definitive new greater than 1 cm mediastinal lymph nodes. No cardiomegaly o r pericardial effusion is seen. OTHER: Slight scoliotic curvature. Corresponding x-ray abnormality there is a old malunion fracture o f the left anterior third rib axial image 19. IMPRESSION: Old anterior rib fracture mimics new lesion in the left lung. No suspicious new nodules o r masses identified.
--- NOTE | 2022-08-05 14:15 | P.PN ---
Subjective Progress Note Date: 08/12/22 H&P Date: 08/02/22 Chief Complaint: Progressive shortness of breath This is a pleasant 62-year-old gentleman presented to the ER with past medical history of COPD, emphysema, former nicotine dependence-quit 8-9 years ago, and multiple other medical issues presented to the ER with complaints of progressive shortness of breath. Reports he returned from [place] on the of this month, some seasonal ALLERGIES, though as if he was developing an upper res piratory infection on Tuesday when he attended his granddaughter's sports event. Performed multiple tests at home testing negative for covid. Reports productive cough with greenish alvarado sputum at home-nonproductive since admission. Patient also states he had diarrhea up until the day before adm ission, currently none. Fluctuating mild tachycardia up into the 1 teens, telemetry reporting sinus tachycardia, EKG reported sinus tachycardia on admission. Denies chest pain, reports chest pressure with coughing. Troponin negative 1.Afebrile, normal WBC. Chest x-ray reporting no acute cardiopu lmonary disease process, moderate to severe COPD changes. Hematology, coagulation and chemistry panel is unremarkable. Viral testing ordered. Maintaining O2 sats in the 90s on room air. 08/03/22 reports episodic nonproductive coughing, throughout the night accompanied by shortness of breath. Tessalon Perles initiated-this morning reports less cough, productive with green sputum. Continues to have bronchospasms with coughing. Complains of migraine headache related to coughing. Increased wheezing today. Reports no bowel movement since Tuesday. Oxygen recently removed, currently maintaining O2 sats in the high 90s to 100% on room air. Afebrile.one of two preliminary blood cultures reporting Staphylococcus epidermidis and Staphylococcus lugdunenisis. Currently maintained on ceftriaxone. 08/04/2022 evaluated by infectious disease with antibiotics adjusted, currently on vancomycin. Renal function stable. Reports that he is unable to take albuterol and Atrovent together-had significant difficulty during a prior hospital stay at [facility], therefore reordered each separately and scheduled for different administration times. Positive bowel movement. Tachycardia improving. Maintaining O2 sats in the high 90s on room air. Continues on IV steroids, blood sugars controlled. Continues to have bronchospasms with coughing. Sputum sample collected, pending. Normal CRP, pro-calcitonin pending. 08/05/2022 denies any fevers, chills. Reports breathing unchanged. Ongoing productive cough with green sputum, sputum culture pending. Pro-calcitonin 0.05. Maintaining O2 sats of 99% on 2 L nasal cannula. Chest x-ray repeated yesterday reported no acute process, correlate for COPD, asymmetric nodular appearing density adjacent to the creatinine in the left upper lobe recommending computed tomography scan of the chest. Patient states that this left upper lobe density has been followed up with PET scan/benign benign biopsy in the past. Afebrile, WBC continues 11.25. Renal function stable. Good diet intake, denies nausea vomiting or diarrhea. Objective - Vital Signs Vital signs: Vital Signs Temp 97.5 F L 08/05/22 06:56 Pulse 88 08/05/22 13:21 Resp 18 08/05/22 08:48 BP 138/87 08/05/22 06:56 Pulse Ox 98 08/05/22 09:44 FiO2 21 08/02/22 08:13 Intake & Output 08/04/22 08/05/22 08/05/22 18:59 06:59 18:59 Intake Total 236 Balance 236 Intake: Oral 236 Other: Voiding Method Toilet Toilet Toilet # Voids 3 2 # Bowel Movements 1 - Exam PHYSICAL EXAM: VITAL SIGNS: [As above] GENERAL: Alert and oriented 3, lying in bed, no acute distress HEENT: Atraumatic, normocephalic Conjunctivae normal. eyes normal. MMM. NECK: Supple, No JVD. CARDIOVASCULAR: S1, S2, No murmur RESPIRATION: Decreased air exchange , congested cough with bilateral bases diminshed. ABDOMEN: Soft, nondistended, nontender . No guarding. no masses palpable. +BS LEGS: No edema. no swelling, no calf tenderness, positive DP pulses NERVOUS SYSTEM: Cranial N 2-12 grossly normal.No focal deficits. Strength and sensation grossly intact. Skin: Warm and dry, no rash Microbiology 08/04/22 06:57 Sputum Gram Stain - Preliminary 08/04/22 06:57 Sputum Sputum Culture - Preliminary 08/01/22 09:19 Blood Blood Culture - Preliminary 08/03/22 15:36 Blood Blood Culture - Preliminary 08/01/22 09:10 Blood Blood Culture Gram Stain - Final 08/01/22 09:10 Blood Blood Culture - Final Staphylococcus epidermidis Staphylococcus lugdunenisis - Labs CBC & Chem 7: 08/05/22 04:50 08/05/22 04:50 Labs: Abnormal Lab Results - Last 24 Hours (Table) 08/04/22 08/04/22 08/05/22 Range/Units 17:09 20:29 04:50 WBC 11.25 H (4.50-10.00) X 10*3/uL Immature Gran # 0.11 H (0.00-0.04) X 10*3/uL Neutrophils # 9.93 H (1.80-7.70) X 10*3/uL Lymphocytes # 0.82 L (0.90-5.00) X 10*3/uL Eosinophils # 0 L (0.04-0.35) X 10*3/uL Anion Gap (10.00-18.00) mmol/L BUN/Creatinine Ratio (12.00-20.00) Ratio POC Glucose (mg/dL) 125 H 134 H (70-110) mg/dL 08/05/22 08/05/22 08/05/22 Range/Units 04:50 05:40 11:25 WBC (4.50-10.00) X 10*3/uL Immature Gran # (0.00-0.04) X 10*3/uL Neutrophils # (1.80-7.70) X 10*3/uL Lymphocytes # (0.90-5.00) X 10*3/uL Eosinophils # (0.04-0.35) X 10*3/uL Anion Gap 9.50 L (10.00-18.00) mmol/L BUN/Creatinine Ratio 27.29 H (12.00-20.00) Ratio POC Glucose (mg/dL) 114 H 136 H (70-110) mg/dL Microbiology - Last 24 Hours (Table) 08/04/22 06:57 Gram Stain - Preliminary Sputum Sputum Culture - Preliminary 08/01/22 09:19 Blood Culture - Preliminary Blood 08/03/22 15:36 Blood Culture - Preliminary Blood 08/01/22 09:10 Blood Culture Gram Stain - Final Blood Blood Culture - Final Staphylococcus epidermidis Staphylococcus lugdunenisis Assessment and Plan Assessment: Acute COPD exacerbation with tracheobronchitis Bacteremia, preliminary one of 2 blood cultures reporting Staphylococcus epidermidis, suspect skin contamination and Staphylococcus lugdunenisis-possible pneumonia, community-acquired. Normal CRP, normal pro-calcitonin. Sinus tachycardia secondary to the above. 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 Plan: Continue on current medication regime ,monitoring and symptomatic treatment. Repeat blood cultures , sputum culture in progress. IV antibiotics as per infectious disease, cultures finalizing. Aggressive pulmonary toileting including nebulized bronchodilators, IV steroids. Chest CT regarding abnormal chest x-ray as per PCP. The impression and plan of care has been dictated as directed. : I performed a history and examination of this patient, discussed the same with the dictator. I agree with the dictator's note ,documented as a scribe. Any additional findings or plans will be noted.
--- NOTE | 2022-08-05 14:21 | P.PN ---
Subjective Progress Note Date: 08/05/22 Principal diagnosis: Positive blood culture Patient is a 62-year-old male with a past medical history significant for emphysema psoriasis arthritis in this patient presented to hospital for evaluation of increasing shortness of breath, patient chest x-ray negative for a cute infiltrate however blood cultures can be positive for staph epi and Staphylococcus lugdunesis On today's evaluation that is 08/05/2022, patient remains to be afebrile, the patient has been complaining of increasing shortness of breath and cough however no significant sputum production he was able to provide a sputum sample no nausea no vomiting no abdominal pain or diarrhea Objective - Vital Signs Vital signs: Vital Signs Temp 97.5 F L 08/05/22 06:56 Pulse 80 08/05/22 10:00 Resp 18 08/05/22 06:56 BP 138/87 08/05/22 06:56 Pulse Ox 98 08/05/22 09:44 FiO2 21 08/02/22 08:13 Intake & Output 08/04/22 08/05/22 08/05/22 18:59 06:59 18:59 Intake Total 236 Balance 236 Intake: Oral 236 Other: Voiding Method Toilet Toilet # Voids 3 2 # Bowel Movements 1 - Exam GENERAL DESCRIPTION: A middle-age male up in bed in no distress RESPIRATORY SYSTEM: Unlabored breathing , decreased breath sounds at bases HEART: S1 S2 regular rate and rhythm , ABDOMEN: Soft , no tenderness EXTREMITIES: No edema feet - Labs CBC & Chem 7: 08/05/22 04:50 08/05/22 04:50 Labs: Abnormal Lab Results - Last 24 Hours (Table) 08/04/22 08/04/22 08/04/22 Range/Units 05:54 05:54 12:11 WBC 14.34 H (4.50-10.00) X 10*3/uL Immature Gran # 0.10 H (0.00-0.04) X 10*3/uL Neutrophils # 12.84 H (1.80-7.70) X 10*3/uL Lymphocytes # (0.90-5.00) X 10*3/uL Eosinophils # 0 L (0.04-0.35) X 10*3/uL Anion Gap (10.00-18.00) mmol/L BUN/Creatinine Ratio 24.22 H (12.00-20.00) Ratio POC Glucose (mg/dL) 113 H (70-110) mg/dL 08/04/22 08/04/22 08/05/22 Range/Units 17:09 20:29 04:50 WBC 11.25 H (4.50-10.00) X 10*3/uL Immature Gran # 0.11 H (0.00-0.04) X 10*3/uL Neutrophils # 9.93 H (1.80-7.70) X 10*3/uL Lymphocytes # 0.82 L (0.90-5.00) X 10*3/uL Eosinophils # 0 L (0.04-0.35) X 10*3/uL Anion Gap (10.00-18.00) mmol/L BUN/Creatinine Ratio (12.00-20.00) Ratio POC Glucose (mg/dL) 125 H 134 H (70-110) mg/dL 08/05/22 08/05/22 08/05/22 Range/Units 04:50 05:40 11:25 WBC (4.50-10.00) X 10*3/uL Immature Gran # (0.00-0.04) X 10*3/uL Neutrophils # (1.80-7.70) X 10*3/uL Lymphocytes # (0.90-5.00) X 10*3/uL Eosinophils # (0.04-0.35) X 10*3/uL Anion Gap 9.50 L (10.00-18.00) mmol/L BUN/Creatinine Ratio 27.29 H (12.00-20.00) Ratio POC Glucose (mg/dL) 114 H 136 H (70-110) mg/dL Microbiology - Last 24 Hours (Table) 08/04/22 06:57 Gram Stain - Preliminary Sputum Sputum Culture - Preliminary 08/01/22 09:19 Blood Culture - Preliminary Blood 08/03/22 15:36 Blood Culture - Preliminary Blood 08/01/22 09:10 Blood Culture Gram Stain - Final Blood Blood Culture - Final Staphylococcus epidermidis Staphylococcus lugdunenisis Assessment and Plan (1) Positive blood culture Current Visit: Yes Status: Acute Code(s): R78.81 - BACTEREMIA SNOMED Code(s): 323894691 Plan: 1patient presented to hospital with increasing shortness of breath which is likely related to COPD exacerbation with a tracheobronchitis as the patient chest x-ray were negative for acute cardiopulmonary disease now with evidence of positive blood culture staph epi is more likely skin contamination however Staphylococcus lugdunesis and associated with infection question of possible pneumonia 2-blood culture has been repeated and so far negative 3-patient did have a normal CRP , procalcitonin came back to be normal 4Patient to continue with vancomycin while waiting for CT of the chest completed as well as repeat culture, questions concerned were answered Time with Patient: Less than 30
[2022-08-05 16:47] LABS: Glucose,Whole Blood 88 mg/dL (70-110)
[2022-08-05 20:44] LABS: Glucose,Whole Blood 118 mg/dL (70-110)
[2022-08-06] MEDS: methylPREDNISolone SOD SUCCI 125 MG/2 ML VIAL IV SCH ×4 (00:58→19:01)
[2022-08-06] MEDS: BENZONATATE 100 MG CAP PO PRN (01:04)
[2022-08-06] MEDS: VANCOMYCIN 1,250 MG in SODIUM CHLORIDE 0.9% 250 ML IVPB SCH ×3 (01:05→16:09)
[2022-08-06 06:11] LABS: Glucose,Whole Blood 106 mg/dL (70-110)
[2022-08-06] MEDS: ALPRAZolam 0.25 MG TAB PO PRN ×2 (06:51→16:13)
[2022-08-06] MEDS: INSULIN ASPART (NovoLOG) 100 UNIT/ML VIAL SQ SCH ×4 (06:51→21:54)
[2022-08-06] MEDS: ALBUTEROL NEBULIZED 2.5 MG/3 ML INHALATION SCH ×4 (08:50→20:10)
[2022-08-06] MEDS: BUDESONIDE 0.5 MG/2 ML NEBU INHALATION SCH ×2 (08:50→20:09)
[2022-08-06] MEDS: TOPIRAMATE 25 MG TAB PO SCH ×2 (08:51→20:26)
[2022-08-06] MEDS: DOCUSATE 100 MG CAP PO SCH ×2 (08:51→20:26)
[2022-08-06 09:38] VITALS: BMI 21.2
--- NOTE | 2022-08-06 10:04 | P.PN ---
Subjective Progress Note Date: 08/06/22 Principal diagnosis: Acute superior COPD exacerbation Tracheobronchitis Left upper lobe nodular density which on computed tomography scan confirmed refracture old and healed Bacteremia due to gram-positive cocci final ID staph epi and staph Lug, repeat cultures however no growth has been seen vancomycin has been continued, ID service following Long standing history of nicotine abuse and smoked 08/06/2022, patient seen eval examined during rounds labs reviewed medications reviewed care plan discussed patient is still short of breath however severity has improved able to treat relatively better still have ongoing cough congestion is present, patient had a computed tomography scan of the chest without contrast which is compared to prior computed tomography scan in October 2020 about asymmetry in the left upper lobe which turned around to be old rib fracture no acute changes identified overall lung Parenchyma Consistent with Emphysema 08/04/2022, patient seen eval examined during the rounds labs reviewed medications reviewed sitting upright in the chair breathing comfortably denies any chest pain, patient had a chest x-ray earlier today, no acute processes seen consistent with COPD asymmetric nodular appearance involving left upper lobe, patient will benefit from computed tomography scan of the chest however appears that developing pneumonia. Patient had initial blood culture positive for staph epi as well as Staph Lugduneneisis, vancomycin has been admitted and ID is following 08/03/2022, overall still have problems with ongoing shortness of breath with dyspnea as well as cough and congestion patient has acute respiratory distress due to mucous plug which eventually was able to cough out it was pearly alvarado in appearance however continued to deny hemoptysis patient remains on IV steroids breathing treatment antibiotics his blood culture has been positive for gram- positive cocci final ID hours pending 62-year-old male with prior medical history of extensive smoking and nicotine use quit 15 years ago but used to smoke heavily up to 2 packs per day for 35 years presented into the hospital with increasing shortness of breath than baseline along with cough congestion and wheezing symptoms started about a week ago has been progressive cough is mainly nonproductive along with having chest I as patient does have a long-standing history of COPD sees Dr. MARVIN bains for lung issues, he takes the breathing treatments on a regular basis along with MDIs on specific questioning denies any loss of conscious), denies any purulent sputum production or hemoptysis denies any weight denies any nausea vomiting diarrhea, her chest x-ray consistent with COPD-like changes but does active process identified Objective - Vital Signs Vital signs: Vital Signs Temp 97.6 F 08/06/22 07:00 Pulse 93 08/06/22 09:02 Resp 18 08/06/22 07:00 BP 131/89 08/06/22 07:00 Pulse Ox 97 08/06/22 08:51 FiO2 21 08/02/22 08:13 Intake & Output 08/05/22 08/06/22 08/06/22 18:59 06:59 18:59 Intake Total 236 480 Balance 236 480 Weight 74.8 kg Intake: Oral 236 480 Other: Voiding Method Toilet Toilet # Voids 4 2 # Bowel Movements 2 - Exam - Constitutional General appearance: average body habitus, cooperative, disheveled - EENT Eyes: EOMI, PERRLA ENT: normal oropharynx Ears: bilateral: normal - Neck Neck: normal ROM Carotids: bilateral: upstroke normal Thyroid: bilateral: normal size - Respiratory Respiratory: bilateral: diminished, prolonged expiration - Cardiovascular Rhythm: regular Heart sounds: normal: S1, S2 - Gastrointestinal General gastrointestinal: normal bowel sounds, soft - Neurologic Neurologic: CNII-XII intact - Musculoskeletal Musculoskeletal: gait normal, generalized weakness, strength equal bilaterally - Psychiatric Psychiatric: A&O x's 3, appropriate affect, intact judgment & insight - Labs CBC & Chem 7: 08/05/22 04:50 08/05/22 04:50 Labs: Abnormal Lab Results - Last 24 Hours (Table) 08/05/22 08/05/22 08/05/22 Range/Units 04:50 04:50 11:25 WBC 11.25 H (4.50-10.00) X 10*3/uL Immature Gran # 0.11 H (0.00-0.04) X 10*3/uL Neutrophils # 9.93 H (1.80-7.70) X 10*3/uL Lymphocytes # 0.82 L (0.90-5.00) X 10*3/uL Eosinophils # 0 L (0.04-0.35) X 10*3/uL Anion Gap 9.50 L (10.00-18.00) mmol/L BUN/Creatinine Ratio 27.29 H (12.00-20.00) Ratio POC Glucose (mg/dL) 136 H (70-110) mg/dL 08/05/22 Range/Units 20:42 WBC (4.50-10.00) X 10*3/uL Immature Gran # (0.00-0.04) X 10*3/uL Neutrophils # (1.80-7.70) X 10*3/uL Lymphocytes # (0.90-5.00) X 10*3/uL Eosinophils # (0.04-0.35) X 10*3/uL Anion Gap (10.00-18.00) mmol/L BUN/Creatinine Ratio (12.00-20.00) Ratio POC Glucose (mg/dL) 118 H (70-110) mg/dL Microbiology - Last 24 Hours (Table) 08/03/22 15:36 Blood Culture - Preliminary Blood 08/04/22 06:57 Gram Stain - Final Sputum Sputum Culture - Final 08/01/22 09:19 Blood Culture - Preliminary Blood Assessment and Plan Assessment: Acute superior COPD exacerbation Tracheobronchitis Left upper lobe nodular density which on computed tomography scan confirmed refracture old and healed Bacteremia due to gram-positive cocci final ID staph epi and staph Lug, repeat cultures however no growth has been seen vancomycin has been continued, ID serv ice following Long standing history of nicotine abuse and smoked Plan: Continue bronchodilators Continue steroids, can be tapered to oral at the time of discharge Supplemental oxygen as needed Continue antibiotics along with vancomycin, will defer the use of antibiotics as per ID service Increase activity as tolerated Deep breathing exercise incentive spirometry We will be available as outpatient for further evaluation, stable pulmonary standpoint and continued to improve slowly would signed off
[2022-08-06 11:41] LABS: Glucose,Whole Blood 119 mg/dL (70-110)
--- NOTE | 2022-08-06 13:29 | P.PN ---
Subjective 08/02/22 This is a pleasant 62-year-old gentleman presented to the ER with past medical history of COPD, emphysema, former nicotine dependence-quit 8-9 years ago, and multiple other medical issues presented to the ER with complaints of progressive shortness of breath. Reports he returned from [place] on the of this month, some seasonal ALLERGIES, though as if he was developing an upper respiratory infection on Tuesday when he attended his granddaughter's sports event. Performed multiple tests at home testing negative for covid. Reports productive cough with greenish alvarado sputum at home-nonproductive since admission. Patient also states he had diarrhea up until the day before admission, currently none. Fluctuating mild tachycardia up into the 1 teens, telemetry reporting sinus tachycardia, EKG reported sinus tachycardia on adm ission. Denies chest pain, reports chest pressure with coughing. Troponin negative 1.Afebrile, normal WBC. Chest x-ray reporting no acute cardiopulmonary disease process, moderate to severe COPD changes. Hematology, coagulation and chemistry panel is unremarkable. Viral testing ordered. Jami alejandro O2 sats in the 90s on room air. 08/03/22 reports episodic nonproductive coughing, throughout the night accompanied by shortness of breath. Tessalon Perles initiated-this morning reports less cough, productive with green sputum. Continues to have bronchospasms with coughing. Complains of migraine headache related to coughing. Increased wheezing today. Reports no bowel movement since Tuesday. Oxygen recently removed, currently maintaining O2 sats in the high 90s to 100% on room air. Afebrile.one of two preliminary blood cultures reporting Staphylococcus epidermidis and Staphylococcus lugdunenisis. Currently maintained on ceftriaxone. 08/04/2022 evaluated by infectious disease with antibiotics adjusted, currently on vancomycin. Renal function stable. Reports that he is unable to take albuterol and Atrovent together-had significant difficulty during a prior hospital stay at [facility], therefore reordered each separately and scheduled for different administration times. Positive bowel movement. Tachycardia improving. Maintaining O2 sats in the high 90s on room air. Continues on IV steroids, blood sugars controlled. Continues to have bronchospasms with coughing. Sputum sample collected, pending. Normal CRP, pro-calcitonin pending. 08/05/2022 denies any fevers, chills. Reports breathing unchanged. Ongoing productive cough with green sputum, sputum culture pending. Pro-calcitonin 0.05. Maintaining O2 sats of 99% on 2 L nasal cannula. Chest x-ray repeated yesterday reported no acute process, correlate for COPD, asymmetric nodular appearing density adjacent to the creatinine in the left upper lobe recommending computed tomography scan of the chest. Patient states that this left upper lobe density has been followed up with PET scan/benign benign biopsy in the past. Afebrile, WBC continues 11.25. Renal function stable. Good diet intake, denies nausea vomiting or diarrhea. 08/06/2022: Patient is reevaluated for his acute exacerbation of COPD. Indicates he is feeling better. Vital signs remained stable. Glucose today was 119. Repeat blood cultures have been negative. Sputum cultures are negative. Original cultures positive for staph epidermidis and staph on ugdungenesis. CT chest shows nothing acute. Pulmonology and ID notes are reviewed today. Objective - Vital Signs Vital signs: Vital Signs Temp 97.6 F 08/06/22 07:00 Pulse 88 08/06/22 12:14 Resp 18 08/06/22 07:00 BP 131/89 08/06/22 07:00 Pulse Ox 97 08/06/22 08:51 FiO2 21 08/02/22 08:13 Intake & Output 08/05/22 08/06/22 08/06/22 18:59 06:59 18:59 Intake Total 236 480 Balance 236 480 Weight 74.8 kg Intake: Oral 236 480 Other: Voiding Method Toilet Toilet # Voids 4 2 # Bowel Movements 2 - Exam GENERAL: Alert and oriented 3, sitting on the side of the bed, no acute distress NECK: Supple, No JVD. CARDIOVASCULAR: S1, S2, No murmur RESPIRATION: Decreased air exchange , congested cough with bilateral bases diminshed. ABDOMEN: Soft, nondistended, nontender . No guarding. no masses palpable. +BS LEGS: No edema. no swelling, no calf tenderness, positive DP pulses NERVOUS SYSTEM: Cranial N 2-12 grossly normal.No focal deficits. Strength and sensation grossly intact. Skin: Warm and dry, no rash - Labs CBC & Chem 7: 08/05/22 04:50 08/05/22 04:50 Labs: Abnormal Lab Results - Last 24 Hours (Table) 08/05/22 08/06/22 Range/Units 20:42 11:39 POC Glucose (mg/dL) 118 H 119 H (70-110) mg/dL Microbiology - Last 24 Hours (Table) 08/01/22 09:19 Blood Culture - Preliminary Blood 08/03/22 15:36 Blood Culture - Preliminary Blood 08/04/22 06:57 Gram Stain - Final Sputum Sputum Culture - Final Assessment and Plan Plan: Acute COPD exacerbation with tracheobronchitis Bacteremia, preliminary one of 2 blood cultures reporting Staphylococcus epidermidis, suspect skin contamination and Staphylococcus lugdunenisis-possible pneumonia, community-acquired. Normal CRP, normal pro-calcitonin. Repeat blood cultures have been negative. Sinus tachycardia secondary to the above. Recent Covid infection 08/28/2022 in a patient with 3 vaccinations- 2 Moderna,1 pfeizer, in addition to his flu vaccine last fall History of extensive nicotine dependence, quit 8-9 years ago Asymmetric nodular appearing density left upper lobe, CT shows no acute changes Plan he'll continue his IV steroids and antibiotics. Medications. We have for the radiation from infectious disease and pulmonology. He'll be reevaluated in the next 24 hours.
[2022-08-06] MEDS: HYDROcodone/APAP 10-325MG 1 EACH TAB PO PRN (13:36)
--- NOTE | 2022-08-06 14:59 | P.PN ---
Subjective Progress Note Date: 08/06/22 Principal diagnosis: Positive blood culture Patient is a 62-year-old male with a past medical history significant for emphysema psoriasis arthritis in this patient presented to hospital for evaluation of increasing shortness of breath, patient chest x-ray negative for a cute infiltrate however blood cultures can be positive for staph epi and Staphylococcus lugdunesis On today's evaluation that is 08/06/2022, patient continues to be afebrile, the patient is breathing more comfortably today he remains to be on room air, patient denies having any chest pain no worsening cough or sputum production no abdominal pain or diarrhea Objective - Vital Signs Vital signs: Vital Signs Temp 97.6 F 08/06/22 07:00 Pulse 93 08/06/22 09:02 Resp 18 08/06/22 07:00 BP 131/89 08/06/22 07:00 Pulse Ox 97 08/06/22 08:51 FiO2 21 08/02/22 08:13 Intake & Output 08/05/22 08/06/22 08/06/22 18:59 06:59 18:59 Intake Total 236 480 Balance 236 480 Weight 74.8 kg Intake: Oral 236 480 Other: Voiding Method Toilet Toilet # Voids 4 2 # Bowel Movements 2 - Exam GENERAL DESCRIPTION: A middle-age male up in bed in no distress RESPIRATORY SYSTEM: Unlabored breathing , decreased breath sounds at bases HEART: S1 S2 regular rate and rhythm , ABDOMEN: Soft , no tenderness EXTREMITIES: No edema feet - Labs CBC & Chem 7: 08/05/22 04:50 08/05/22 04:50 Labs: Abnormal Lab Results - Last 24 Hours (Table) 08/05/22 08/05/22 08/05/22 Range/Units 04:50 04:50 11:25 WBC 11.25 H (4.50-10.00) X 10*3/uL Immature Gran # 0.11 H (0.00-0.04) X 10*3/uL Neutrophils # 9.93 H (1.80-7.70) X 10*3/uL Lymphocytes # 0.82 L (0.90-5.00) X 10*3/uL Eosinophils # 0 L (0.04-0.35) X 10*3/uL Anion Gap 9.50 L (10.00-18.00) mmol/L BUN/Creatinine Ratio 27.29 H (12.00-20.00) Ratio POC Glucose (mg/dL) 136 H (70-110) mg/dL 08/05/22 Range/Units 20:42 WBC (4.50-10.00) X 10*3/uL Immature Gran # (0.00-0.04) X 10*3/uL Neutrophils # (1.80-7.70) X 10*3/uL Lymphocytes # (0.90-5.00) X 10*3/uL Eosinophils # (0.04-0.35) X 10*3/uL Anion Gap (10.00-18.00) mmol/L BUN/Creatinine Ratio (12.00-20.00) Ratio POC Glucose (mg/dL) 118 H (70-110) mg/dL Microbiology - Last 24 Hours (Table) 08/01/22 09:19 Blood Culture - Preliminary Blood 08/03/22 15:36 Blood Culture - Preliminary Blood 08/04/22 06:57 Gram Stain - Final Sputum Sputum Culture - Final Assessment and Plan (1) Positive blood culture Current Visit: Yes Status: Acute Code(s): R78.81 - BACTEREMIA SNOMED Code(s): 922523767 Plan: 1patient presented to hospital with increasing shortness of breath which is likely related to COPD exacerbation with a tracheobronchitis as the patient chest x-ray were negative for acute cardiopulmonary disease now with evidence of positive blood culture staph epi is more likely skin contamination however Staphylococcus lugdunesis and associated with infection question of possible pneumonia 2-blood culture has been repeated and so far negative 3-patient did have a normal CRP , procalcitonin came back to be normal 4Patient CT of the chest did not show any consolidation repeat blood cultures negative all pointing towards possible contamination as for his blood cultures are concerned and vancomycin can be safely discontinued Time with Patient: Less than 30
[2022-08-06 16:52] LABS: Glucose,Whole Blood 105 mg/dL (70-110)
[2022-08-06 21:50] LABS: Glucose,Whole Blood 135 mg/dL (70-110)
[2022-08-07] MEDS: methylPREDNISolone SOD SUCCI 125 MG/2 ML VIAL IV SCH ×4 (00:30→18:15)
[2022-08-07] MEDS: VANCOMYCIN 1,250 MG in SODIUM CHLORIDE 0.9% 250 ML IVPB SCH ×3 (00:31→15:49)
[2022-08-07] MEDS: ALPRAZolam 0.25 MG TAB PO PRN ×3 (00:35→17:00)
[2022-08-07] MEDS: BENZONATATE 100 MG CAP PO PRN ×3 (01:36→23:18)
[2022-08-07] MEDS: ALBUTEROL NEBULIZED 2.5 MG/3 ML INHALATION PRN (02:01)
[2022-08-07 05:47] LABS: Glucose,Whole Blood 124 mg/dL (70-110)
[2022-08-07] MEDS: INSULIN ASPART (NovoLOG) 100 UNIT/ML VIAL SQ SCH ×4 (06:09→21:32)
[2022-08-07] MEDS: HYDROcodone/APAP 10-325MG 1 EACH TAB PO PRN (06:17)
[2022-08-07] MEDS ORDERED: VANCOMYCIN TROUGH DUE 1 EACH MISC MISCELLANE ONE (07:00)
[2022-08-07 07:29] LABS: African American GFR (CKD) >90 (>60 ml/min/1.73 sqM); Non-African American GFR(CKD) >90 (>60 ml/min/1.73 sqM)
[2022-08-07] MEDS: TAMSULOSIN 0.4 MG CAP.ER.24H PO SCH (08:46)
[2022-08-07] MEDS: DOCUSATE 100 MG CAP PO SCH ×2 (08:46→21:35)
[2022-08-07] MEDS: TOPIRAMATE 25 MG TAB PO SCH ×2 (08:46→21:35)
[2022-08-07] MEDS: SYMBICORT 160-4.5 MCG INHALER INHALATION SCH ×2 (09:06→21:53)
[2022-08-07] MEDS: ALBUTEROL NEBULIZED 2.5 MG/3 ML INHALATION SCH ×4 (09:06→21:52)
[2022-08-07 11:28] LABS: Glucose,Whole Blood 114 mg/dL (70-110)
--- NOTE | 2022-08-07 14:43 | P.PN ---
Subjective 08/02/22 This is a pleasant 62-year-old gentleman presented to the ER with past medical history of COPD, emphysema, former nicotine dependence-quit 8-9 years ago, and multiple other medical issues presented to the ER with complaints of progressive shortness of breath. Reports he returned from [place] on the of this month, some seasonal ALLERGIES, though as if he was developing an upper respiratory infection on Tuesday when he attended his granddaughter's sports event. Performed multiple tests at home testing negative for covid. Reports productive cough with greenish alvarado sputum at home-nonproductive since admission. Patient also states he had diarrhea up until the day before admission, currently none. Fluctuating mild tachycardia up into the 1 teens, telemetry reporting sinus tachycardia, EKG reported sinus tachycardia on adm ission. Denies chest pain, reports chest pressure with coughing. Troponin negative 1.Afebrile, normal WBC. Chest x-ray reporting no acute cardiopulmonary disease process, moderate to severe COPD changes. Hematology, coagulation and chemistry panel is unremarkable. Viral testing ordered. Jami alejandro O2 sats in the 90s on room air. 08/03/22 reports episodic nonproductive coughing, throughout the night accompanied by shortness of breath. Tessalon Perles initiated-this morning reports less cough, productive with green sputum. Continues to have bronchospasms with coughing. Complains of migraine headache related to coughing. Increased wheezing today. Reports no bowel movement since Tuesday. Oxygen recently removed, currently maintaining O2 sats in the high 90s to 100% on room air. Afebrile.one of two preliminary blood cultures reporting Staphylococcus epidermidis and Staphylococcus lugdunenisis. Currently maintained on ceftriaxone. 08/04/2022 evaluated by infectious disease with antibiotics adjusted, currently on vancomycin. Renal function stable. Reports that he is unable to take albuterol and Atrovent together-had significant difficulty during a prior hospital stay at [facility], therefore reordered each separately and scheduled for different administration times. Positive bowel movement. Tachycardia improving. Maintaining O2 sats in the high 90s on room air. Continues on IV steroids, blood sugars controlled. Continues to have bronchospasms with coughing. Sputum sample collected, pending. Normal CRP, pro-calcitonin pending. 08/05/2022 denies any fevers, chills. Reports breathing unchanged. Ongoing productive cough with green sputum, sputum culture pending. Pro-calcitonin 0.05. Maintaining O2 sats of 99% on 2 L nasal cannula. Chest x-ray repeated yesterday reported no acute process, correlate for COPD, asymmetric nodular appearing density adjacent to the creatinine in the left upper lobe recommending computed tomography scan of the chest. Patient states that this left upper lobe density has been followed up with PET scan/benign benign biopsy in the past. Afebrile, WBC continues 11.25. Renal function stable. Good diet intake, denies nausea vomiting or diarrhea. 08/06/2022: Patient is reevaluated for his acute exacerbation of COPD. Indicates he is feeling better. Vital signs remained stable. Glucose today was 119. Repeat blood cultures have been negative. Sputum cultures are negative. Original cultures positive for staph epidermidis and staph on ugdungenesis. CT chest shows nothing acute. Pulmonology and ID notes are reviewed today. 08/07/2022: patient slept poorly last night. Brething is about the same. We discussed Symbicaort and how he feels it really helps. No other c/o other than cough today. O2 sat on RA normal. other VSS stable. labs pending. ID and pulmonology notes reviwed. Objective - Vital Signs Vital signs: Vital Signs Temp 98.3 F 08/07/22 07:20 Pulse 92 08/07/22 12:14 Resp 18 08/07/22 12:14 BP 137/85 08/07/22 07:20 Pulse Ox 97 08/07/22 09:07 FiO2 21 08/02/22 08:13 Intake & Output 08/06/22 08/07/22 08/07/22 18:59 06:59 18:59 Intake Total 236 Balance 236 Weight 74.8 kg Intake: Oral 236 Other: # Voids 5 2 - Exam GENERAL: Alert and oriented 3, sitting on the side of the bed, no acute distress NECK: Supple, No JVD. CARDIOVASCULAR: S1, S2, No murmur RESPIRATION: Decreased air exchange , and bilateral bases diminshed. slight improvement, cough worse this am ABDOMEN: Soft, nondistended, nontender . No guarding. no masses palpable. +BS LEGS: No edema. no swelling, no calf tenderness, positive DP pulses NERVOUS SYSTEM: Cranial N 2-12 grossly normal.No focal deficits. Strength and sensation grossly intact. Skin: Warm and dry, no rash - Labs CBC & Chem 7: 08/05/22 04:50 08/07/22 07:04 Labs: Abnormal Lab Results - Last 24 Hours (Table) 08/06/22 08/07/22 08/07/22 Range/Units 21:45 05:46 07:04 Creatinine 0.60 L (0.66-1.25) mg/dL POC Glucose (mg/dL) 135 H 124 H (70-110) mg/dL 08/07/22 Range/Units 11:27 Creatinine (0.66-1.25) mg/dL POC Glucose (mg/dL) 114 H (70-110) mg/dL Microbiology - Last 24 Hours (Table) 08/03/22 15:36 Blood Culture - Preliminary Blood 08/01/22 09:19 Blood Culture - Final Blood Assessment and Plan (1) Sinus tachycardia Current Visit: Yes Status: Acute Code(s): R00.0 - TACHYCARDIA, UNSPECIFIED SNOMED Code(s): 50333627 (2) Former smoker Current Visit: Yes Status: Acute Code(s): Z87.891 - PERSONAL HISTORY OF NICOTINE DEPENDENCE SNOMED Code(s): 6995339 (3) H/O solitary pulmonary nodule Current Visit: Yes Status: Acute Code(s): Z87.898 - PERSONAL HISTORY OF OTHER SPECIFIED CONDITIONS SNOMED Code(s): 561502485 (4) COPD exacerbation Current Visit: Yes Status: Acute Code(s): J44.1 - CHRONIC OBSTRUCTIVE PULMONARY DISEASE W (ACUTE) EXACERBATION SNOMED Code(s): 387951825 (5) Positive blood culture Current Visit: Yes Status: Acute Code(s): R78.81 - BACTEREMIA SNOMED Code(s): 109463202 Plan: he'll continue his IV steroids and antibiotics. add symbicort, repeat labs in am, He'll be reevaluated in the next 24 hours.
[2022-08-07 16:23] LABS: Glucose,Whole Blood 136 mg/dL (70-110)
[2022-08-07] MEDS: BUDESONIDE 0.5 MG/2 ML NEBU INHALATION SCH (19:49)
[2022-08-07 19:56] LABS: Glucose,Whole Blood 139 mg/dL (70-110)
[2022-08-08] MEDS: VANCOMYCIN 1,250 MG in SODIUM CHLORIDE 0.9% 250 ML IVPB SCH ×2 (00:12→07:32)
[2022-08-08] MEDS: ALPRAZolam 0.25 MG TAB PO PRN ×4 (01:21→23:34)
[2022-08-08] MEDS: ACETAMINOPHEN TAB 325 MG TAB PO PRN (01:21)
[2022-08-08] MEDS: methylPREDNISolone SOD SUCCI 125 MG/2 ML VIAL IV SCH ×2 (01:21→05:14)
[2022-08-08] MEDS: BUTALB/APAP/CAFF 50-325-40MG TAB PO PRN (05:18)
[2022-08-08 05:45] LABS: Glucose,Whole Blood 119 mg/dL (70-110)
[2022-08-08] MEDS: INSULIN ASPART (NovoLOG) 100 UNIT/ML VIAL SQ SCH ×4 (06:20→20:15)
[2022-08-08] MEDS: BENZONATATE 100 MG CAP PO PRN ×3 (07:31→23:37)
[2022-08-08] MEDS: DOCUSATE 100 MG CAP PO SCH ×2 (07:31→20:14)
[2022-08-08] MEDS: TOPIRAMATE 25 MG TAB PO SCH ×2 (07:31→20:14)
[2022-08-08] MEDS: TAMSULOSIN 0.4 MG CAP.ER.24H PO SCH (07:32)
[2022-08-08 08:02] LABS: African American GFR (CKD) >90 (>60 ml/min/1.73 sqM); Anion Gap 9 mmol/L; Blood Urea Nitrogen 18 mg/dL (9-20); Calcium 8.4 mg/dL (8.4-10.2); Carbon Dioxide 20 mmol/L (22-30); Chloride 109 mmol/L (98-107); Glucose 110 mg/dL (74-99); Non-African American GFR(CKD) >90 (>60 ml/min/1.73 sqM); Potassium 4.3 mmol/L (3.5-5.1); Sodium 138 mmol/L (137-145)
[2022-08-08 08:33] LABS: Magnesium 2.3 mg/dL (1.6-2.3)
[2022-08-08] MEDS: ALBUTEROL NEBULIZED 2.5 MG/3 ML INHALATION SCH ×4 (08:39→19:54)
[2022-08-08] MEDS: SYMBICORT 160-4.5 MCG INHALER INHALATION SCH ×2 (08:39→19:54)
[2022-08-08 11:05] LABS: Glucose,Whole Blood 124 mg/dL (70-110)
--- NOTE | 2022-08-08 11:34 | P.PN ---
Subjective 08/02/22 This is a pleasant 62-year-old gentleman presented to the ER with past medical history of COPD, emphysema, former nicotine dependence-quit 8-9 years ago, and multiple other medical issues presented to the ER with complaints of progressive shortness of breath. Reports he returned from [place] on the of this month, some seasonal ALLERGIES, though as if he was developing an upper respiratory infection on Tuesday when he attended his granddaughter's sports event. Performed multiple tests at home testing negative for covid. Reports productive cough with greenish alvarado sputum at home-nonproductive since admission. Patient also states he had diarrhea up until the day before admission, currently none. Fluctuating mild tachycardia up into the 1 teens, telemetry reporting sinus tachycardia, EKG reported sinus tachycardia on adm ission. Denies chest pain, reports chest pressure with coughing. Troponin negative 1.Afebrile, normal WBC. Chest x-ray reporting no acute cardiopulmonary disease process, moderate to severe COPD changes. Hematology, coagulation and chemistry panel is unremarkable. Viral testing ordered. Jami alejandro O2 sats in the 90s on room air. 08/03/22 reports episodic nonproductive coughing, throughout the night accompanied by shortness of breath. Tessalon Perles initiated-this morning reports less cough, productive with green sputum. Continues to have bronchospasms with coughing. Complains of migraine headache related to coughing. Increased wheezing today. Reports no bowel movement since Tuesday. Oxygen recently removed, currently maintaining O2 sats in the high 90s to 100% on room air. Afebrile.one of two preliminary blood cultures reporting Staphylococcus epidermidis and Staphylococcus lugdunenisis. Currently maintained on ceftriaxone. 08/04/2022 evaluated by infectious disease with antibiotics adjusted, currently on vancomycin. Renal function stable. Reports that he is unable to take albuterol and Atrovent together-had significant difficulty during a prior hospital stay at [facility], therefore reordered each separately and scheduled for different administration times. Positive bowel movement. Tachycardia improving. Maintaining O2 sats in the high 90s on room air. Continues on IV steroids, blood sugars controlled. Continues to have bronchospasms with coughing. Sputum sample collected, pending. Normal CRP, pro-calcitonin pending. 08/05/2022 denies any fevers, chills. Reports breathing unchanged. Ongoing productive cough with green sputum, sputum culture pending. Pro-calcitonin 0.05. Maintaining O2 sats of 99% on 2 L nasal cannula. Chest x-ray repeated yesterday reported no acute process, correlate for COPD, asymmetric nodular appearing density adjacent to the creatinine in the left upper lobe recommending computed tomography scan of the chest. Patient states that this left upper lobe density has been followed up with PET scan/benign benign biopsy in the past. Afebrile, WBC continues 11.25. Renal function stable. Good diet intake, denies nausea vomiting or diarrhea. 08/06/2022: Patient is reevaluated for his acute exacerbation of COPD. Indicates he is feeling better. Vital signs remained stable. Glucose today was 119. Repeat blood cultures have been negative. Sputum cultures are negative. Original cultures positive for staph epidermidis and staph on ugdungenesis. CT chest shows nothing acute. Pulmonology and ID notes are reviewed today. 08/07/2022: patient slept poorly last night. Brething is about the same. We discussed Symbicaort and how he feels it really helps. No other c/o other than cough today. O2 sat on RA normal. other VSS stable. labs pending. ID and pulmonology notes reviwed. Aug 08 2022: patient is feeling a bit better. He remains on.Symbicort, inhalation, albuterol, nebs solution, vancomycin for antibiotic coverage, solumedrol 60 mg IV. Tessalon for cough, patient improved. Denies any chest pains, nausea vomiting.. He's getting up and moving well. Objective - Vital Signs Vital signs: Vital Signs Temp 97.6 F 08/08/22 07:26 Pulse 90 08/08/22 08:49 Resp 18 08/08/22 08:49 BP 155/93 08/08/22 07:26 Pulse Ox 95 08/08/22 08:39 FiO2 21 08/02/22 08:13 Intake & Output 08/07/22 08/08/22 08/08/22 18:59 06:59 18:59 Intake Total 2472 236 Balance 2472 236 Intake: Oral 2472 236 Other: # Voids 3 3 - Exam GENERAL: Alert and oriented 3, sitting on the side of the bed, no acute distress NECK: Supple, No JVD. CARDIOVASCULAR: S1, S2, No murmur RESPIRATION: Decreased air exchange , and bilateral bases diminshed. slight i mprovement, less Cough today ABDOMEN: Soft, nondistended, nontender . No guarding. no masses palpable. +BS LEGS: No edema. no swelling, no calf tenderness, positive DP pulses NERVOUS SYSTEM: Cranial N 2-12 grossly normal.No focal deficits. Strength and sensation grossly intact. Skin: Warm and dry, no rash - Labs CBC & Chem 7: 08/05/22 04:50 08/08/22 07:14 Labs: Abnormal Lab Results - Last 24 Hours (Table) 08/07/22 08/07/22 08/08/22 Range/Units 16:22 19:52 05:44 Chloride (98-107) mmol/L Carbon Dioxide (22-30) mmol/L Creatinine (0.66-1.25) mg/dL Glucose (74-99) mg/dL POC Glucose (mg/dL) 136 H 139 H 119 H (70-110) mg/dL 08/08/22 08/08/22 Range/Units 07:14 11:03 Chloride 109 H (98-107) mmol/L Carbon Dioxide 20 L (22-30) mmol/L Creatinine 0.57 L (0.66-1.25) mg/dL Glucose 110 H (74-99) mg/dL POC Glucose (mg/dL) 124 H (70-110) mg/dL Microbiology - Last 24 Hours (Table) 08/03/22 15:36 Blood Culture - Preliminary Blood 08/01/22 09:19 Blood Culture - Final Blood Assessment and Plan (1) COPD exacerbation Current Visit: Yes Status: Acute Code(s): J44.1 - CHRONIC OBSTRUCTIVE PULMONARY DISEASE W (ACUTE) EXACERBATION SNOMED Code(s): 188662201 (2) Sinus tachycardia Current Visit: Yes Status: Acute Code(s): R00.0 - TACHYCARDIA, UNSPECIFIED SNOMED Code(s): 37470160 (3) Former smoker Current Visit: Yes Status: Acute Code(s): Z87.891 - PERSONAL HISTORY OF NICOTINE DEPENDENCE SNOMED Code(s): 0445558 (4) H/O solitary pulmonary nodule Current Visit: Yes Status: Acute Code(s): Z87.898 - PERSONAL HISTORY OF OTHER SPECIFIED CONDITIONS SNOMED Code(s): 528845757 (5) Positive blood culture Current Visit: Yes Status: Acute Code(s): R78.81 - BACTEREMIA SNOMED Code(s): 084015291 Plan: he'll continue his IV steroids and antibiotics. add symbicort, repeat labs in am,I will reduce the steroid dose today. Waiting on infectious disease regarding the need for further antibiotics. We are recommendations from pulmonology. He'll be reevaluated in the next 24 hours.
[2022-08-08] MEDS: methylPREDNISolone SOD SUCCI 40 MG/ML 1 ML VIAL IV SCH ×2 (15:39→23:34)
--- NOTE | 2022-08-08 15:42 | P.PN ---
Subjective Progress Note Date: 08/08/22 Principal diagnosis: Positive blood culture Patient is a 62-year-old male with a past medical history significant for emphysema psoriasis arthritis in this patient presented to hospital for evaluation of increasing shortness of breath, patient chest x-ray negative for a cute infiltrate however blood cultures can be positive for staph epi and Staphylococcus lugdunesis On today's evaluation that is 08/08/2022, patient continues to be afebrile, the patient is breathing comfortably on room air, patient denies having any chest pain, the patient cough is decreased intensity is mostly dry in nature no nausea no vomiting no abdominal pain or diarrhea Objective - Vital Signs Vital signs: Vital Signs Temp 97.5 F L 08/08/22 13:50 Pulse 90 08/08/22 15:20 Resp 18 08/08/22 15:20 BP 100/84 08/08/22 13:50 Pulse Ox 98 08/08/22 13:50 FiO2 21 08/02/22 08:13 Intake & Output 08/07/22 08/08/22 08/08/22 18:59 06:59 18:59 Intake Total 6712 472 Balance 2472 472 Intake: Oral 8822 472 Other: # Voids 3 3 - Exam GENERAL DESCRIPTION: A middle-age male up in bed in no distress RESPIRATORY SYSTEM: Unlabored breathing , decreased breath sounds at bases HEART: S1 S2 regular rate and rhythm , ABDOMEN: Soft , no tenderness EXTREMITIES: No edema feet - Labs CBC & Chem 7: 08/05/22 04:50 08/08/22 07:14 Labs: Abnormal Lab Results - Last 24 Hours (Table) 08/07/22 08/07/22 08/08/22 Range/Units 16:22 19:52 05:44 Chloride (98-107) mmol/L Carbon Dioxide (22-30) mmol/L Creatinine (0.66-1.25) mg/dL Glucose (74-99) mg/dL POC Glucose (mg/dL) 136 H 139 H 119 H (70-110) mg/dL 08/08/22 08/08/22 Range/Units 07:14 11:03 Chloride 109 H (98-107) mmol/L Carbon Dioxide 20 L (22-30) mmol/L Creatinine 0.57 L (0.66-1.25) mg/dL Glucose 110 H (74-99) mg/dL POC Glucose (mg/dL) 124 H (70-110) mg/dL Microbiology - Last 24 Hours (Table) 08/03/22 15:36 Blood Culture - Preliminary Blood 08/01/22 09:19 Blood Culture - Final Blood Assessment and Plan (1) Positive blood culture Current Visit: Yes Status: Acute Code(s): R78.81 - BACTEREMIA SNOMED Code(s): 652898163 Plan: 1patient presented to hospital with increasing shortness of breath which is likely related to COPD exacerbation with a tracheobronchitis as the patient chest x-ray were negative for acute cardiopulmonary disease now with evidence of positive blood culture staph epi is more likely skin contamination however Staphylococcus lugdunesis and associated with infection question of possible pneumonia 2-blood culture has been repeated and so far negative 3-patient did have a normal CRP , procalcitonin is be normal 4Patient CT of the chest did not show any consolidation repeat blood cultures negative all pointing towards possible contamination as for his blood cultures are concerned, vancomycin has been discontinued the patient will be monitored closely off antibiotic therapy Time with Patient: Less than 30
[2022-08-08 16:36] LABS: Glucose,Whole Blood 102 mg/dL (70-110)
[2022-08-08 20:07] LABS: Glucose,Whole Blood 119 mg/dL (70-110)
[2022-08-09 05:48] LABS: Glucose,Whole Blood 106 mg/dL (70-110)
[2022-08-09 05:51] LABS: African American GFR (CKD) >90 (>60 ml/min/1.73 sqM); Non-African American GFR(CKD) >90 (>60 ml/min/1.73 sqM)
[2022-08-09] MEDS: INSULIN ASPART (NovoLOG) 100 UNIT/ML VIAL SQ SCH ×2 (06:45→11:42)
[2022-08-09 07:46] VITALS: BP 147/75; RESP 19; TEMP 97.5
[2022-08-09] MEDS: methylPREDNISolone SOD SUCCI 40 MG/ML 1 ML VIAL IV SCH (08:01)
[2022-08-09] MEDS: TOPIRAMATE 25 MG TAB PO SCH (08:02)
[2022-08-09] MEDS: DOCUSATE 100 MG CAP PO SCH (08:02)
[2022-08-09] MEDS: BUTALB/APAP/CAFF 50-325-40MG TAB PO PRN (08:02)
[2022-08-09] MEDS: BENZONATATE 100 MG CAP PO PRN (08:02)
[2022-08-09] MEDS: TAMSULOSIN 0.4 MG CAP.ER.24H PO SCH (08:02)
[2022-08-09] MEDS: ALPRAZolam 0.25 MG TAB PO PRN (08:08)
[2022-08-09] MEDS: SYMBICORT 160-4.5 MCG INHALER INHALATION SCH (08:36)
[2022-08-09] MEDS: ALBUTEROL NEBULIZED 2.5 MG/3 ML INHALATION SCH ×2 (08:36→11:31)
[2022-08-09] MEDS ORDERED: predniSONE 20 MG TAB PO SCH (11:15)
[2022-08-09 11:26] LABS: Glucose,Whole Blood 123 mg/dL (70-110)
[2022-08-09 11:45] VITALS: PULSE 73
--- NOTE | 2022-08-09 14:24 | P.DS ---
Providers Date of admission: 08/01/22 11:03 Expected date of discharge: 08/09/22 Attending physician: Vijay Lowry Consults: 08/01/22 11:07 Consult Physician Urgent Consulting Provider: Puneet Bills Consult Reason/Comments: COPD Do you want consulting provider notified?: Yes 08/03/22 14:58 Consult Physician Routine Consulting Provider: Aruna Grider Consult Reason/Comments: poss. BC Do you want consulting provider notified?: Yes Primary care physician: Vijay Lowry Hospital Course: Acute COPD exacerbation with tracheobronchitis Bacteremia, preliminary one of 2 blood cultures reporting Staphylococcus epidermidis and Staphylococcus lugdunenisis-possible pneumonia, community- acquired. Normal CRP, normal pro-calcitonin.CT of the chest did not report any new masses,repeat blood cultures negative-suspect contamination. Antibiotics discontinued and patient continued to improve off antibiotics. Sinus tachycardia secondary to the above, resolved. Recent Covid infection 08/28/2022 in a patient with 3 vaccinations- 2 MAderna,1 pfeizer, in addition to his flu vaccine last fall History of extensive nicotine dependence, quit 8-9 years ago Asymmetric nodular appearing density left upper lobe, patient reports previously worked up with outpatient innersole maker. Hospital course:This is a pleasant 62-year-old gentleman presented to the ER with past medical history of COPD, emphysema, former nicotine dependence-quit 8- 9 years ago, and multiple other medical issues presented to the ER with complaints of progressive shortness of breath. Reports he returned from [place] on the of this month, some seasonal ALLERGIES, though as if he was developing an upper respiratory infection on Tuesday when he attended his granddaughter's sports event. Performed multiple tests at home testing negative for covid. Reports productive cough with greenish alvarado sputum at home- nonproductive since admission. Patient also states he had diarrhea up until the day before admission, currently none. Fluctuating mild tachycardia up into the 1 teens, telemetry reporting sinus tachycardia, EKG reported sinus tachycardia on admission. Denies chest pain, reports chest pressure with coughing. Troponin negative 1.Afebrile, normal WBC. Chest x-ray reporting no acute cardiopulmonary disease process, moderate to severe COPD changes. Hematology, coagulation and chemistry panel is unremarkable. Viral testing ordered. Maintaining O2 sats in the 90s on room air. 08/03/22 reports episodic nonproductive coughing, throughout the night accompanied by shortness of breath. Tessalon Perles initiated-this morning reports less cough, productive with green sputum. Continues to have bronchospasms with coughing. Complains of migraine headache related to coughing. Increased wheezing today. Reports no bowel movement since Tuesday. Oxygen recently removed, currently maintaining O2 sats in the high 90s to 100% on room air. Afebrile.one of two preliminary blood cultures reporting Staphylococcus epidermidis and Staphylococcus lugdunenisis. Currently maintained on ceftriaxone. 08/04/2022 evaluated by infectious disease with antibiotics adjusted, currently on vancomycin. Renal function stable. Reports that he is unable to take albuterol and Atrovent together-had significant difficulty during a prior hospital stay at [facility], therefore reordered each separately and scheduled for different administration times. Positive bowel movement. Tachycardia improving. Maintaining O2 sats in the high 90s on room air. Continues on IV steroids, blood sugars controlled. Continues to have bronchospasms with coughing. Sputum sample collected, pending. Normal CRP, pro-calcitonin pending. 08/05/2022 denies any fevers, chills. Reports breathing unchanged. Ongoing productive cough with green sputum, sputum culture pending. Pro-calcitonin 0.05. Maintaining O2 sats of 99% on 2 L nasal cannula. Chest x-ray repeated yesterday reported no acute process, correlate for COPD, asymmetric nodular appearing density adjacent to the creatinine in the left upper lobe recommending computed tomography scan of the chest. Patient states that this left upper lobe density has been followed up with PET scan/benign benign biopsy in the past. Afebrile, WBC continues 11.25. Renal function stable. Good diet intake, denies nausea vomiting or diarrhea. CT chest reported old anterior rib fracture mimics Lesion in the left lung, no suspicious new nodules or masses identified. Repeat blood cultures negative.Maintaining O2 sats in the high 90s on room air . Bronchospasms have subsided. Lessening cough.Significant clinical improvement. Denies any chest pain, palpitations .Cleared by infectious disease for discharge with no further antibiotic therapy recommended. Patient will be discharged home today in a stable condition with guarded prognosis. The impression and plan of care has been dictated as directed. : I performed a history and examination of this patient, discussed the same with the dictator. I agree with the dictator's note ,documented as a scribe. Any additional findings or plans will be noted. Patient Condition at Discharge: Stable Plan - Discharge Summary New Discharge Prescriptions: New Docusate [Colace] 100 mg PO BID cap Benzonatate [Tessalon Perles] 100 mg PO Q8H PRN #21 cap PRN Reason: Cough Tamsulosin [Flomax] 0.4 mg PO PC-BRKFST #30 cap predniSONE 10 mg PO DIRECTED #89 tab Albuterol Inhaler [Ventolin Hfa Inhaler] 2 puff INHALATION Q4H PRN #8 gm PRN Reason: Shortness Of Breath Continue HYDROcodone/APAP 10-325MG [[place] 10-325] 1 tab PO Q6H PRN PRN Reason: Pain Ipratropium-Albuterol Nebulize [Duoneb 0.5 mg-3 mg/3 ml Soln] 3 ml INHALATION RT-QID Budesonide [Pulmicort] 0.5 mg INHALATION RT-BID ALPRAZolam [Xanax] 0.25 mg PO Q8H PRN PRN Reason: Anxiety Ibuprofen [Motrin] 800 mg PO TID PRN PRN Reason: Pain Cyclobenzaprine [Flexeril] 5 mg PO TID PRN PRN Reason: Muscle Spasm Discharge Medication List ALPRAZolam [Xanax] 0.25 mg PO Q8H PRN 08/01/22 [History] Budesonide [Pulmicort] 0.5 mg INHALATION RT-BID 08/01/22 [History] Cyclobenzaprine [Flexeril] 5 mg PO TID PRN 08/01/22 [History] HYDROcodone/APAP 10-325MG [[place] 10-325] 1 tab PO Q6H PRN 08/01/22 [History] Ibuprofen [Motrin] 800 mg PO TID PRN 08/01/22 [History] Ipratropium-Albuterol Nebulize [Duoneb 0.5 mg-3 mg/3 ml Soln] 3 ml INHALATION RT-QID 08/01/22 [History] Albuterol Inhaler [Ventolin Hfa Inhaler] 2 puff INHALATION Q4H PRN #8 gm 08/09/22 [Rx] Benzonatate [Tessalon Perles] 100 mg PO Q8H PRN #21 cap 08/09/22 [Rx] Docusate [Colace] 100 mg PO BID cap 08/09/22 [Rx] Tamsulosin [Flomax] 0.4 mg PO PC-BRKFST #30 cap 08/09/22 [Rx] predniSONE 10 mg PO DIRECTED #89 tab 08/09/22 [Rx] Follow up Appointment(s)/Referral(s): Vijay Lowry Jr, DO [Primary Care Provider] - 08/12/22 9:30 am Puneet Bills MD [STAFF PHYSICIAN] - 08/20/22 11:15 am
== END 2022-08-09 14:22 | disposition home or self-care (01) | DRG 191 ==
LOC: EC 08:43 → 3SCARD 11:03 → 4SSUR 14:37
PROVIDERS: ADMIT Family Medicine; ATTEND Family Medicine
DX: J43.9 Emphysema, unspecified (principal); R78.81 Bacteremia; J20.9 Acute bronchitis, unspecified; J30.2 Other seasonal allergic rhinitis; Z20.822 Contact with and (suspected) exposure to COVID-19; G43.909 Migraine, unspecified, not intractable, without status migrainosus; L40.9 Psoriasis, unspecified; G89.29 Other chronic pain; M54.9 Dorsalgia, unspecified; M54.2 Cervicalgia; F41.9 Anxiety disorder, unspecified; M19.90 Unspecified osteoarthritis, unspecified site; Z79.51 Long term (current) use of inhaled steroids; Z79.899 Other long term (current) drug therapy; Z87.891 Personal history of nicotine dependence; Z86.16 Personal history of COVID-19; Z88.5 Allergy status to narcotic agent; Z82.5 Family history of asthma and other chronic lower respiratory diseases
CPT/HCPCS: 36415; 71046; 71250; 80048; 80053; 80202; 82565; 83036; 83605; 83735; 84145; 84484; 85025; 85610; 85730; 86140; 87070; 87205; 87636; 93005; 94640; 94760; 96365; 96375; 96376; 99285

== ENCOUNTER 2022-09-09 14:57 | Observation (INO) | payer MEDICARE ==
[2022-09-09] MEDS ORDERED: SODIUM CHLORIDE 0.9% 500 ML 500 ML IV STA (15:27)
[2022-09-09] MEDS ORDERED: ACETAMINOPHEN TAB 500 MG TAB PO STA (15:27)
[2022-09-09] MEDS ORDERED: IBUPROFEN 600 MG TAB PO STA (15:27)
[2022-09-09 15:46] LABS: Basophils # (A) 0.1 k/uL (0-0.2); Basophils % (A) 1 %; Eosinophils # (A) 0.2 k/uL (0-0.7); Eosinophils % (A) 1 %; HCT 42.7 % (39.0-53.0); HGB 14.5 gm/dL (13.0-17.5); Lymphocytes % (A) 7 %; MCH 30.7 pg (25.0-35.0); MCHC 33.9 g/dL (31.0-37.0); MCV 90.4 fL (80.0-100.0); Mean Platelet Volume 7.7; Monocytes # (A) 1.2 k/uL (0-1.0); Monocytes % (A) 9 %; Neutrophils # (A) 11.2 k/uL (1.3-7.7); Neutrophils % (A) 81 %; Platelet Count 311 k/uL (150-450); RBC 4.73 m/uL (4.30-5.90); RDW 13.3 % (11.5-15.5); WBC 13.9 k/uL (3.8-10.6)
[2022-09-09 15:59] LABS: ALT 19 U/L (4-49); AST 25 U/L (17-59); African American GFR (CKD) >90 (>60 ml/min/1.73 sqM); Alkaline Phosphatase 79 U/L (38-126); Anion Gap 12 mmol/L; Blood Urea Nitrogen 21 mg/dL (9-20); Calcium 8.9 mg/dL (8.4-10.2); Carbon Dioxide 22 mmol/L (22-30); Chloride 100 mmol/L (98-107); Glucose 105 mg/dL (74-99); Non-African American GFR(CKD) >90 (>60 ml/min/1.73 sqM); Potassium 4.5 mmol/L (3.5-5.1); Sodium 134 mmol/L (137-145); Total Bilirubin 0.8 mg/dL (0.2-1.3); Total Protein 7.1 g/dL (6.3-8.2)
--- NOTE | 2022-09-09 16:10 | ED ---
General Adult HPI - General Chief complaint: Shortness of Breath Stated complaint: SOB Time Seen by Provider: 09/09/22 15:00 Source: patient, RN notes reviewed, old records reviewed Mode of arrival: EMS Limitations: no limitations - History of Present Illness Initial comments: This is a 62-year-old male who presents emergency department from his doctor's office. Via ambulance. Patient went in because he been having difficulty breathing which is getting progressively worse and when he has a doctor's office of Dr. noted that his heart rate was racing and he was having and the doctor thought the patient was having a very wheezing he was also concerned about a possible PE. Patient denies any fever chills he states he has a dry cough. Patient denies any abdominal pain patient denies any lightheadedness or dizziness. - Related Data Home Medications Medication Instructions Recorded Confirmed ALPRAZolam [Xanax] 0.25 mg PO Q8H PRN 08/01/22 09/09/22 Budesonide [Pulmicort] 0.5 mg INHALATION RT-BID PRN 08/01/22 09/09/22 Cyclobenzaprine [Flexeril] 5 mg PO TID PRN 08/01/22 09/09/22 HYDROcodone/APAP 10-325MG [[place] 1 tab PO Q6H PRN 08/01/22 09/09/22 10-325] Ibuprofen [Motrin] 800 mg PO TID PRN 08/01/22 09/09/22 Ipratropium-Albuterol Nebulize 3 ml INHALATION RT-QID 08/01/22 09/09/22 [Duoneb 0.5 mg-3 mg/3 ml Soln] Albuterol Inhaler [Ventolin Hfa 2 puff INHALATION RT-Q4H PRN 09/09/22 09/09/22 Inhaler] Albuterol Nebulized [Ventolin 2.5 mg INHALATION RT-Q6H PRN 09/09/22 09/09/22 Nebulized] Budesonide/Formoterol Fumarate 2 puff INHALATION RT-BID 09/09/22 09/09/22 [Symbicort 160-4.5 Mcg Inhaler] Docusate [Colace] 100 mg PO DAILY 09/09/22 09/09/22 Previous Rx's Medication Instructions Recorded Tamsulosin [Flomax] 0.4 mg PO PC-BRKFST #30 cap 08/09/22 Allergies Allergy/AdvReac Type Severity Reaction Status Date / Time meperidine HCl [From Demerol] Allergy Severe Nausea & Verified 09/09/22 18:02 Vomiting Review of Systems ROS Statement: Those systems with pertinent positive or pertinent negative responses have been documented in the HPI. ROS Other: All systems not noted in ROS Statement are negative. Past Medical History Past Medical History: COPD Additional Past Medical History / Comment(s): EMPHYSEMA, SOB, migraines, psoriasis, arthritis, pt had an arrhythmia in the past/in his 20's had cardioversion/no issues since, chronic neck and back pain. 30% of lung function. 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 HEMORRHOID SX, COLONOSCOPY, EGD. Biopsy of lungs/no cancer. Past Anesthesia/Blood Transfusion Reactions: No Reported Reaction Past Psychological History: No Psychological Hx Reported Smoking Status: Former smoker Past Alcohol Use History: Occasional Past Drug Use History: None Reported - Past Family History Father Family Medical History: Cancer Additional Family Medical History / Comment(s): Father at age 54 from cancer. Had lung CA, liver CA and brain CA. Mother Family Medical History: COPD, Pneumonia Additional Family Medical History / Comment(s): Mother at age 70 of copd complicated by pneumonia. General Exam - General Exam Comments Initial Comments: GENERAL: Patient is well-developed and well-nourished. Patient is nontoxic and well- hydrated and is in no acute distress. I took the patient's oral temperature at 101.0 temp ENT: Neck is soft and supple. No significant lymphadenopathy is noted. Oropharynx is clear. Moist mucous membranes. Neck has full range of motion without el iciting any pain. EYES: The sclera were anicteric and conjunctiva were pink and moist. Extraocular movements were intact and pupils were equal round and reactive to light. Eyelids were unremarkable. PULMONARY: Patient has some expiratory wheezing CARDIOVASCULAR: There is a regular rate and rhythm without any murmurs gallops or rubs. ABDOMEN: Soft and nontender with normal bowel sounds. SKIN: Skin is clear with no lesions or rashes and otherwise unremarkable. NEUROLOGIC: Patient is alert and oriented x3. Cranial nerves II through XII are grossly intact. Motor and sensory are also intact. Normal speech, volume and content. Symmetrical smile. MUSCULOSKELETAL: Normal extremities with adequate strength and full range of motion. No lower extremity swelling or edema. No calf tenderness. LYMPHATICS: No significant lymphadenopathy is noted PSYCHIATRIC: Normal psychiatric evaluation. Limitations: no limitations Course Vital Signs 09/09/22 09/09/22 09/09/22 14:58 15:37 16:07 Temperature 101.0 F H 99.4 F Pulse Rate 129 H 126 H Respiratory 24 20 16 Rate Blood Pressure 130/85 108/90 O2 Sat by Pulse 98 97 Oximetry 09/09/22 17:56 Temperature 98.9 F Pulse Rate 98 Respiratory 19 Rate Blood Pressure 94/68 O2 Sat by Pulse 100 Oximetry Medical Decision Making - Medical Decision Making EKG was interpreted by myself shows a sinus tachycardia at 131 bpm NJ interval 241 QRS is 79 QT interval 284 QTC is 361. Patient's EKG shows no ST segment elevation or depression. Was pt. sent in by a medical professional or institution (, PA, MATERIALS INSPECTOR, urgent care, hospital, or longterm...) When possible be specific @ -Dr. Lowry sent the patient into the emergency room Did you speak to anyone other than the patient for history (EMS, parent, family, police, friend...)? What history was obtained from this source @ -I spoke with Dr. Lowry prior to the patient's arrival Did you review nursing and triage notes (agree or disagree)? Why? @ -I reviewed and agree with nursing and triage notes Were old charts reviewed (outside hosp., previous admission, EMS record, old E KG, old radiological studies, urgent care reports/EKG's, longterm records)? Report findings @ -I reviewed prior lab work from prior radiological studies Differential Diagnosis (chest pain, altered mental status, abdominal pain women, abdominal pain men, vaginal bleeding, weakness, fever, dyspnea, syncope, headache, dizziness, GI bleed, back pain, seizure, CVA, palpatations, mental health, musculoskeletal)? @ -Differential Dyspnea: Coronary syndrome, arrhythmia, tamponade, asthma, COPD, pulmonary embolism, pneumonia, pneumothorax, pulmonary effusion, anaphylaxis, diabetic ketoacidosis, flailed chest, pulmonary contusion, diaphragmatic rupture, anemia, neuromuscular, this is not meant to be an all-inclusive list. EKG interpreted by me (3pts min.). @ -As above X-rays interpreted by me (1pt min.). @ -Chest x-ray shows no acute abnormality CT Interpreted by me (1pt min.). @ -CT shows a pulmonary embolism in the right basal segment U/S interpreted by me (1pt. min.). @ -None done What testing was considered but not performed or refused? (CT, X-rays, U/S, l abs)? Why? @ -None What meds were considered but not given or refused? Why? @ -None Did you discuss the management of the patient with other professionals (professionals i.e. [employer]Zeus, PA, MATERIALS INSPECTOR, lab, RT, psych nurse, medical social consultant, poultry vaccinator, teacher, recreation officer, home health care case manager)? Give summary @ -With Dr. Goncalves because she was corrections identification technician and I consulted cardiology pulmonary and ordered an echo for the morning Was smoking cessation discussed for >3mins.? @ -No Was critical care preformed (if so, how long)? @ -35 minutes Were there social determinants of health that impacted care today? How? (Homelessness, low income, unemployed, alcoholism, drug addiction, transportation, low edu. Level, literacy, decrease access to med. care, assisted, rehab)? @ -No Was there de-escalation of care discussed even if they declined (Discuss DNR or withdrawal of care, Hospice)? DNR status @ -No What co-morbidities impacted this encounter? (DM, HTN, Smoking, COPD, CAD, Cancer, CVA, ARF, Chemo, Hep., AIDS, mental health diagnosis, sleep apnea, morbid obesity)? @ -None Was patient admitted / discharged? Hospital course, mention meds given and route, prescriptions, significant lab abnormalities, going to OR and other pertinent info. @ -Patient was diagnosed with pulmonary embolism. The computed tomography scan patient was started on heparin. Patient also had a high fever of 101.0 so patient was given antibiotics secondary to COPD. Undiagnosed new problem with uncertain prognosis? @ -No Drug Therapy requiring intensive monitoring for toxicity (Heparin, Nitro, Insulin, Cardizem)? @ -No Were any procedures done? @ -No Diagnosis/symptom? @ -Pulmonary embolism Acute, or Chronic, or Acute on Chronic? @ -Acute Uncomplicated (without systemic symptoms) or Complicated (systemic symptoms)? @ -Complicated Side effects of treatment? @ -No Exacerbation, Progression, or Severe Exacerbation? @ -No Poses a threat to life or bodily function? How? (Chest pain, [place], [place], pneumonia, PE, COPD, DKA, ARF, appy, cholecystitis, CVA, Diverticulitis, Homicidal, Suicidal, threat to staff... and all critical care pts) @ -Yes this could lead to hypoxia and end organ dysfunction - Lab Data Result diagrams: 09/09/22 15:31 09/09/22 15:31 Lab Results 09/09/22 09/09/22 09/09/22 Range/Units 15:31 15: 15:31 WBC 13.9 H (3.8-10.6) k/uL RBC 4.73 (4.30-5.90) m/uL Hgb 14.5 (13.0-17.5) gm/dL Hct 42.7 (39.0-53.0) % MCV 90.4 (80.0-100.0) fL MCH 30.7 (25.0-35.0) pg MCHC 33.9 (31.0-37.0) g/dL RDW 13.3 (11.5-15.5) % Plt Count 311 (150-450) k/uL MPV 7.7 Neutrophils % 81 % Lymphocytes % 7 % Monocytes % 9 % Eosinophils % 1 % Basophils % 1 % Neutrophils # 11.2 H (1.3-7.7) k/uL Lymphocytes # 1.0 (1.0-4.8) k/uL Monocytes # 1.2 H (0-1.0) k/uL Eosinophils # 0.2 (0-0.7) k/uL Basophils # 0.1 (0-0.2) k/uL PT 10.6 (9.0-12.0) sec INR 1.0 (<1.2) APTT 24.8 (22.0-30.0) sec D-Dimer 3.78 H (<0.60) mg/L FEU Sodium 134 L (137-145) mmol/L Potassium 4.5 (3.5-5.1) mmol/L Chloride 100 (98-107) mmol/L Carbon Dioxide 22 (22-30) mmol/L Anion Gap 12 mmol/L BUN 21 H (9-20) mg/dL Creatinine 0.69 (0.66-1.25) mg/dL Est GFR (CKD-EPI)AfAm >90 (>60 ml/min/1.73 sqM) Est GFR (CKD-EPI)NonAf >90 (>60 ml/min/1.73 sqM) Glucose 105 H (74-99) mg/dL Lactic Ac Sepsis Rflx Plasma Lactic Acid Kemar (0.7-2.0) mmol/L Calcium 8.9 (8.4-10.2) mg/dL Magnesium 2.0 (1.6-2.3) mg/dL Total Bilirubin 0.8 (0.2-1.3) mg/dL AST 25 (17-59) U/L ALT 19 (4-49) U/L Alkaline Phosphatase 79 (38-126) U/L Troponin I (0.000-0.034) ng/mL NT-Pro-B Natriuret Pep pg/mL Total Protein 7.1 (6.3-8.2) g/dL Albumin 4.0 (3.5-5.0) g/dL 09/09/22 09/09/22 09/09/22 Range/Units 15:31 15:31 15:31 WBC (3.8-10.6) k/uL RBC (4.30-5.90) m/uL Hgb (13.0-17.5) gm/dL Hct (39.0-53.0) % MCV (80.0-100.0) fL MCH (25.0-35.0) pg MCHC (31.0-37.0) g/dL RDW (11.5-15.5) % Plt Count (150-450) k/uL MPV Neutrophils % % Lymphocytes % % Monocytes % % Eosinophils % % Basophils % % Neutrophils # (1.3-7.7) k/uL Lymphocytes # (1.0-4.8) k/uL Monocytes # (0-1.0) k/uL Eosinophils # (0-0.7) k/uL Basophils # (0-0.2) k/uL PT (9.0-12.0) sec INR (<1.2) APTT (22.0-30.0) sec D-Dimer (<0.60) mg/L FEU Sodium (137-145) mmol/L Potassium (3.5-5.1) mmol/L Chloride (98-107) mmol/L Carbon Dioxide (22-30) mmol/L Anion Gap mmol/L BUN (9-20) mg/dL Creatinine (0.66-1.25) mg/dL Est GFR (CKD-EPI)AfAm (>60 ml/min/1.73 sqM) Est GFR (CKD-EPI)NonAf (>60 ml/min/1.73 sqM) Glucose (74-99) mg/dL Lactic Ac Sepsis Rflx Plasma Lactic Acid Kemar 2.2 H* (0.7-2.0) mmol/L Calcium (8.4-10.2) mg/dL Magnesium (1.6-2.3) mg/dL Total Bilirubin (0.2-1.3) mg/dL AST (17-59) U/L ALT (4-49) U/L Alkaline Phosphatase (38-126) U/L Troponin I <0.012 (0.000-0.034) ng/mL NT-Pro-B Natriuret Pep 22 pg/mL Total Protein (6.3-8.2) g/dL Albumin (3.5-5.0) g/dL 09/09/22 09/09/22 Range/Units 16:01 18:26 WBC (3.8-10.6) k/uL RBC (4.30-5.90) m/uL Hgb (13.0-17.5) gm/dL Hct (39.0-53.0) % MCV (80.0-100.0) fL MCH (25.0-35.0) pg MCHC (31.0-37.0) g/dL RDW (11.5-15.5) % Plt Count (150-450) k/uL MPV Neutrophils % % Lymphocytes % % Monocytes % % Eosinophils % % Basophils % % Neutrophils # (1.3-7.7) k/uL Lymphocytes # (1.0-4.8) k/uL Monocytes # (0-1.0) k/uL Eosinophils # (0-0.7) k/uL Basophils # (0-0.2) k/uL PT (9.0-12.0) sec INR (<1.2) APTT (22.0-30.0) sec D-Dimer (<0.60) mg/L FEU Sodium (137-145) mmol/L Potassium (3.5-5.1) mmol/L Chloride (98-107) mmol/L Carbon Dioxide (22-30) mmol/L Anion Gap mmol/L BUN (9-20) mg/dL Creatinine (0.66-1.25) mg/dL Est GFR (CKD-EPI)AfAm (>60 ml/min/1.73 sqM) Est GFR (CKD-EPI)NonAf (>60 ml/min/1.73 sqM) Glucose (74-99) mg/dL Lactic Ac Sepsis Rflx Y Plasma Lactic Acid Kemar 0.7 (0.7-2.0) mmol/L Calcium (8.4-10.2) mg/dL Magnesium (1.6-2.3) mg/dL Total Bilirubin (0.2-1.3) mg/dL AST (17-59) U/L ALT (4-49) U/L Alkaline Phosphatase (38-126) U/L Troponin I (0.000-0.034) ng/mL NT-Pro-B Natriuret Pep pg/mL Total Protein (6.3-8.2) g/dL Albumin (3.5-5.0) g/dL Critical Care Time Critical Care Time: Yes Total Critical Care Time: 35 Disposition Clinical Impression: Pulmonary embolism Disposition: ADMITTED IP TO THIS [facility] Referrals: Vijay Lowry Jr, [Primary Care Provider] - 1-2 days Time of Disposition: 19:31
[2022-09-09 16:29] LABS: Partial Thromboplastin Time 24.8 sec (22.0-30.0); Prothrombin Time 10.6 sec (9.0-12.0)
--- NOTE | 2022-09-09 16:38 | XR ---
EXAMINATION TYPE: XR chest 2V DATE OF EXAM: 09/09/2022 4:32 PM COMPARISON: Chest radiographs from I 1023, CT chest 08/05/2022. TECHNIQUE: XR chest 2V Frontal and lateral views of the chest. CLINICAL INDICATION:Male, 62 years old with history of difficulty breathing; FINDINGS: Lungs/Pleura: No pleural effusion or pneumothorax. Subtle patchy airspace opacities within the left u pper lung. Hyperinflation. Chronic senescent parenchymal change. Biapical pleural-parenchymal scarrin g. Pulmonary vascularity: Unremarkable. Heart/mediastinum: Cardiomediastinal silhouette is unremarkable. Musculoskeletal: No acute osseous pathology. IMPRESSION: Background COPD changes with subtle increased patchy airspace opacities within the left upper lung co ncerning for infiltrates.
--- NOTE | 2022-09-09 18:14 | CT ---
EXAMINATION TYPE: CT chest angio for PE DATE OF EXAM: 09/09/2022 COMPARISON: 05/25/2018 CTA for PE. 08/05/2022 CT chest without contrast HISTORY: SOB and tachycardic with exertion. CT DLP: 369.1 mGycm. Automated Exposure Control for Dose Reduction was Utilized. CONTRAST: CTA scan of the thorax is performed with IV Contrast, patient injected with 100 ml mL of Is ovue 370. MIP Images are created on CT scanner and reviewed. 3D reconstructed images are created on an independent workstation and reviewed. FINDINGS: LUNGS: Severe bilateral emphysematous changes noted. Moderately prominent left apical pulmonary/pleur al changes noted, increased since 08/05/2022 and likely inflammatory/infectious etiology; would recomm end follow-up CT in 3 months to prove resolution of the findings. MEDIASTINUM: There is satisfactory enhancement of the pulmonary artery and its branches; there are fi lling defects in the right lower lobe lateral segmental branches, consistent with pulmonary emboli. N o other pulmonary arterial filling defects noted. There is flattening of the interventricular septum, suggesting right heart strain. No cardiomegaly. No pericardial effusion. No acute aortic findings. The aortic root at the level of the sinuses of Valsalva is dilated at 4.3 c m. Remainder of the aorta is not dilated. Main pulmonary artery is not dilated. OTHER: No additional significant abnormality is seen. Results discussed with ordering ED physician. IMPRESSION: Positive right lower lobe lateral basal segmental pulmonary emboli, with evidence of elevated right h eart pressures. * Recommend three-month follow-up CT chest w contrast (CTA PE protocol if clinically preferred) to f ollow up findings.
[2022-09-09] MEDS ORDERED: HEPARIN SODIUM 1,000 UN/ML (10ML VL) IV ONE (18:24)
[2022-09-09] MEDS ORDERED: HEPARIN SOD,PORK IN 0.45% NACL 25,000 UNIT in 0.45% NACL 1 250ML.BAG IV SCH (18:30)
[2022-09-09] MEDS ORDERED: SODIUM CHLORIDE 0.9% 1,000 ML IV ONE (19:31)
[2022-09-09] MEDS ORDERED: cefTRIAXone IN SWFI 1,000 MG/10 ML SYRINGE IVP STA (19:32)
[2022-09-10] MEDS ORDERED: ALPRAZolam 0.25 MG TAB PO PRN ×2 (01:04→09:01)
[2022-09-10] MEDS ORDERED: HEPARIN SODIUM 1,000 UN/ML (10ML VL) IV PRN (01:51)
[2022-09-10 04:43] VITALS: TEMP 98.1
[2022-09-10] MEDS ORDERED: Apixaban Initiation Dose--VTE 5 MG TAB PO SCH (09:00)
[2022-09-10] MEDS ORDERED: HYDROcodone/APAP 10-325MG 1 EACH TAB PO PRN (09:01)
[2022-09-10] MEDS ORDERED: ALBUTEROL HFA INHALER INHALATION PRN (09:01)
[2022-09-10] MEDS ORDERED: CYCLOBENZAPRINE 5 MG TAB PO PRN (09:01)
[2022-09-10] MEDS ORDERED: BUDESONIDE 0.5 MG/2 ML NEBU INHALATION PRN (09:01)
[2022-09-10] MEDS ORDERED: DOCUSATE 100 MG CAP PO SCH (09:01)
[2022-09-10] MEDS ORDERED: ALBUTEROL NEBULIZED 2.5 MG/3 ML INHALATION PRN (09:01)
[2022-09-10] MEDS ORDERED: ACETAMINOPHEN TAB 325 MG TAB PO PRN (09:02)
[2022-09-10] MEDS ORDERED: TAMSULOSIN 0.4 MG CAP.ER.24H PO SCH (09:12)
[2022-09-10] MEDS ORDERED: SYMBICORT 160-4.5 MCG INHALER INHALATION SCH ×2 (09:15→20:00)
--- NOTE | 2022-09-10 10:01 | CA ---
Transthoracic Echo Report Name: Glenroy Najera Age: 62 Gender: M : 1960 Exam Date: 09/10/2022 08:07 Exam Location: [facility] Ht (in): 74 Wt (lb): 155 Ordering Physician: Bradley Rosales MD Attending/Referring Phys: Manager Technical Services Pao Melchor [facility] Procedure CPT: Indications: Pulmonary embolism with right heart strain Cardiac Hx: Technical Quality: Technically difficult study Contrast 1: Lumason Total Dose (mL): 5 Contrast 2: Total Dose (mL): MEASUREMENTS (Male / Female) Normal Values 2D ECHO LV Diastolic Diameter PLAX 4.2 cm 4.2 - 5.9 / 3.9 - 5.3 cm LV Systolic Diameter PLAX 2.7 cm IVS Diastolic Thickness 0.6 cm 0.6 - 1.0 / 0.6 - 0.9 cm LVPW Diastolic Thickness 0.8 cm 0.6 - 1.0 / 0.6 - 0.9 cm LV Relative Wall Thickness 0.3 RV Internal Dim ED PLAX 3.8 cm LA Systolic Diameter LX 2.3 cm 3.0 - 4.0 / 2.7 - 3.8 cm M-MODE Aortic Root Diameter MM 3.3 cm AV Cusp Separation MM 2.3 cm DOPPLER AV Peak Velocity 111.1 cm/s AV Peak Gradient 4.9 mmHg AV Mean Velocity 87.7 cm/s AV Mean Gradient 3.2 mmHg AV Velocity Time Integral 13.3 cm LVOT Peak Velocity 85.9 cm/s LVOT Peak Gradient 2.9 mmHg LVOT Velocity Time Integral 15.8 cm Mitral E Point Velocity 57.9 cm/s Mitral A Point Velocity 73.3 cm/s Mitral E to A Ratio 0.8 MV Deceleration Time 162.9 ms LV E' Lateral Velocity 10.5 cm/s Mitral E to LV E' Lateral Ratio 5.5 LV E' Septal Velocity 8.8 cm/s Mitral E to LV E' Septal Ratio 6.6 TR Peak Velocity 207.5 cm/s TR Peak Gradient 17.2 mmHg Right Atrial Pressure 8.0 mmHg Pulmonary Artery Systolic Pressu 25.2 mmHg Right Ventricular Systolic Press 25.2 mmHg FINDINGS Left Ventricle Normal Left ventricular size, wall thickness, systolic function with no obvious regional wall motion abnormalities. Left ventricular ejection fraction is estimated at 55-60%. Right Ventricle Mild right ventricular dilatation. Mildly reduced right ventricular global systolic function. No evidence of pulmonary hypertension Right Atrium Normal right atrial size. Left Atrium Normal left atrial size. Mitral Valve Structurally normal mitral valve. No mitral stenosis, regurgitation or prolapse. Aortic Valve Trileaflet aortic valve. No aortic valve stenosis or regurgitation. Tricuspid Valve Structurally normal tricuspid valve. Trace tricuspid regurgitation. Pulmonic Valve Structurally normal pulmonic valve. Trace pulmonic regurgitation. Pericardium No pericardial effusion. Echo free space anterior to the right ventricle likely represents a fat pad. Aorta Mild aortic dilatation at the level of the sinuses of valsalva (root). CONCLUSIONS 1. Normal left ventricle size and systolic function 2. Mildly dilated right ventricle with no evidence of pulmonary hypertension 3. Trace tricuspid regurgitation Previewed by: Dr. Los Goncalves MD (Electronically Signed) Final Date: 10 September 2022 10:01
[2022-09-10] MEDS: IPRATROPIUM-ALBUTEROL 3 ML NEB INHALATION SCH ×2 (10:29→15:45)
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
[2022-09-10 12:06] VITALS: BP 107/74; PULSE 106; RESP 18
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
[2022-09-10] MEDS ORDERED: LEVOFLOXACIN 500 MG TAB PO SCH (18:00)
--- NOTE | 2022-09-10 18:05 | P.DS ---
Providers Date of admission: 09/09/22 19:31 Expected date of discharge: 09/10/22 Attending physician: Vijay Lowry Consults: 09/09/22 19:31 Consult Physician Urgent Consulting Provider: [facility] Consult Reason/Comments: Pulmonary embolism Do you want consulting provider notified?: Yes 09/10/22 08:17 Consult Physician Routine Consulting Provider: Puneet Bills Consult Reason/Comments: PE, known to him Do you want consulting provider notified?: Yes Primary care physician: Vijay Lowry - Discharge Diagnosis(es) (1) Pulmonary embolism Current Visit: Yes Status: Acute (2) COPD exacerbation Current Visit: No Status: Acute (3) Former smoker Current Visit: No Status: Acute (4) H/O solitary pulmonary nodule Current Visit: No Status: Acute (5) Sinus tachycardia Current Visit: No Status: Acute Hospital Course: Patient admitted to the hospital with sinus tachycardia around 140 bpm Difficulty breathing Suspected PE Started on IV fluids IV antibiotics for acute exacerbation of chronic COPD An pulmonary embolus he was started on apixaban Patient Condition at Discharge: Stable Plan - Discharge Summary Discharge Rx Participant: No New Discharge Prescriptions: New Apixaban Initiation Dose--VTE [Eliquis Initiation Dosing for VTE Treatment] 5 mg PO BID #60 tab Levofloxacin [Levaquin] 500 mg PO DAILY 1 Days #1 tab No Action HYDROcodone/APAP 10-325MG [[place] 10-325] 1 tab PO Q6H PRN PRN Reason: Pain Albuterol Nebulized [Ventolin Nebulized] 2.5 mg INHALATION RT-Q6H PRN PRN Reason: Shortness Of Breath Ipratropium-Albuterol Nebulize [Duoneb 0.5 mg-3 mg/3 ml Soln] 3 ml INHALATION RT-QID Budesonide [Pulmicort] 0.5 mg INHALATION RT-BID PRN PRN Reason: Shortness Of Breath ALPRAZolam [Xanax] 0.25 mg PO Q8H PRN PRN Reason: Anxiety Ibuprofen [Motrin] 800 mg PO TID PRN PRN Reason: Pain Cyclobenzaprine [Flexeril] 5 mg PO TID PRN PRN Reason: Muscle Spasm Tamsulosin [Flomax] 0.4 mg PO PC-BRKFST #30 cap Docusate [Colace] 100 mg PO DAILY Albuterol Inhaler [Ventolin Hfa Inhaler] 2 puff INHALATION RT-Q4H PRN PRN Reason: Shortness Of Breath Budesonide/Formoterol Fumarate [Symbicort 160-4.5 Mcg Inhaler] 2 puff INHALATION RT-BID Discharge Medication List ALPRAZolam [Xanax] 0.25 mg PO Q8H PRN 08/01/22 [History] Budesonide [Pulmicort] 0.5 mg INHALATION RT-BID PRN 08/01/22 [History] Cyclobenzaprine [Flexeril] 5 mg PO TID PRN 08/01/22 [History] HYDROcodone/APAP 10-325MG [[place] 10-325] 1 tab PO Q6H PRN 08/01/22 [History] Ibuprofen [Motrin] 800 mg PO TID PRN 08/01/22 [History] Ipratropium-Albuterol Nebulize [Duoneb 0.5 mg-3 mg/3 ml Soln] 3 ml INHALATION RT-QID 08/01/22 [History] Tamsulosin [Flomax] 0.4 mg PO PC-BRKFST #30 cap 08/09/22 [Rx] Albuterol Inhaler [Ventolin Hfa Inhaler] 2 puff INHALATION RT-Q4H PRN 09/09/22 [History] Albuterol Nebulized [Ventolin Nebulized] 2.5 mg INHALATION RT-Q6H PRN 09/09/22 [History] Budesonide/Formoterol Fumarate [Symbicort 160-4.5 Mcg Inhaler] 2 puff INHALATION RT-BID 09/09/22 [History] Docusate [Colace] 100 mg PO DAILY 09/09/22 [History] Apixaban Initiation Dose--VTE [Eliquis Initiation Dosing for VTE Treatment] 5 mg PO BID #60 tab 09/10/22 [Rx] Levofloxacin [Levaquin] 500 mg PO DAILY 1 Days #1 tab 09/10/22 [Rx] Follow up Appointment(s)/Referral(s): Vijay Lowry Jr, [Primary Care Provider] - 1-2 days Patient Instructions/Handouts: Pulmonary Embolism (IP), Bacterial Pneumonia (IP)
[2022-09-11] MEDS ORDERED: TAMSULOSIN 0.4 MG CAP.ER.24H PO SCH (08:30)
== END 2022-09-10 18:37 | disposition home or self-care (01) ==
LOC: EC 14:57 → INTOOBSV 19:31 → 3SCARD 19:31 → UNDODISIN 09-10 18:37
PROVIDERS: ADMIT Family Medicine; ATTEND Family Medicine
DX: I26.99 Other pulmonary embolism without acute cor pulmonale (principal); J44.1 Chronic obstructive pulmonary disease with (acute) exacerbation; R00.2 Palpitations; F41.9 Anxiety disorder, unspecified; I07.1 Rheumatic tricuspid insufficiency; G43.909 Migraine, unspecified, not intractable, without status migrainosus; G89.29 Other chronic pain; M54.2 Cervicalgia; M54.9 Dorsalgia, unspecified; R91.1 Solitary pulmonary nodule; Z87.891 Personal history of nicotine dependence; Z79.899 Other long term (current) drug therapy; Z79.51 Long term (current) use of inhaled steroids
CPT/HCPCS: 96376 ×2; 96365; 96366; 96372; 96375; 99291; 36415; 94640 ×2; 93005; 85379; 83880; 80053; 83605; 83735; 84484; 85025; 85610; 85730 ×2; 87040; 84145; 71046; 71275; G0378 ×2; C8929; J0696 ×2; J1644 ×3; Q9950; Q9967; 93306; 96367